=== PATIENT | female | born 1965 | race Caucasian/White ===

== ENCOUNTER 2017-12-21 19:18 | Inpatient (IN) | payer OTHER ==
[~2017-12-21] VITALS: Ht 165.1 cm; Wt 103.4 kg
[~2017-12-21 19:18] MED LIST changes: -Aspir-Trin325 MG PO; -Omeprazole20 M1 PO; -Seroquel400 MG PO
[2017-12-21] MEDS ORDERED: Seroquel400 MG PO (20:13)
[2017-12-21 21:53] LABS: Source, Urine Clean Catch
[2017-12-21 22:00] LABS: Bilirubin, Urine Neg (Neg); Blood, Urine Neg (Neg); Glucose Qualitative, Urine Neg (Neg); Ketones, Urine Neg (Neg); Leukocyte Esterase, Urine 1+ (Neg); Nitrite, Urine Pos (Neg); Protein, Urine Neg (Neg); Urobilinogen, Urine NORM (Normal)
[2017-12-21 22:02] LABS: Appearance, Urine Hazy (Clear); Color, Urine Yellow (P-Yellow)
[2017-12-21 22:07] LABS: Bacteria Many /hpf; Red Blood Cells, Urine 0-2 /hpf (0-2); Squamous Epithelial Cells Few /hpf (Few)
[2017-12-21] MEDS ORDERED: Omeprazole20 M1 PO (22:07)
[2017-12-22 04:22] LABS: BASOPHILS ABSOLUTE AUTO 0.02 K/mm3 (0.00-0.23); BASOPHILS PERCENT AUTO 0 % (0-2); EOSINOPHILS ABSOLUTE AUTO 0.29 K/mm3 (0.00-0.68); EOSINOPHILS PERCENT AUTO 3 % (0-6); Hematocrit 30.8 % (33.0-51.0); Hemoglobin 10.8 g/dL (11.5-16.0); IMMATURE GRAN ABSOLUTE AUTO 0.04 K/mm3 (0.00-0.10); IMMATURE GRAN PERCENT AUTO 1 % (0-1); LYMPHOCYTES PERCENT AUTO 41 % (21-46); MONOCYTES ABSOLUTE AUTO 0.58 K/mm3 (0.16-1.47); MONOCYTES PERCENT AUTO 7 % (4-13); Mean Corpuscular HGB Conc 35.1 g/dL (31.5-36.5); Mean Corpuscular Volume 100 fL (80-100); Mean Platelet Volume 8.6 fL (9.1-12.4); NEUTROPHILS ABSOLUTE AUTO 4.24 K/mm3 (1.96-9.15); NEUTROPHILS PERCENT AUTO 48 % (41-73); Platelet Count 232 K/mm3 (150-400); RDW Coefficient Variation 11.2 % (11.7-14.2); RDW Standard Deviation 40.2 fL (35.1-46.3); Red Blood Cell Count 3.09 M/mm3 (3.80-5.20); White Blood Cell Count 8.77 K/mm3 (4.00-11.30)
[2017-12-22 04:44] LABS: Anion Gap 8 mmol/L (6-16); Blood Urea Nitrogen 13 mg/dL (8-24); Bun/Creatinine Ratio 18.9 (12.0-20.0); CO2, Blood 25 mmol/L (21-32); Calcium, Blood 7.6 mg/dL (8.5-10.1); Chloride, Blood 97 mmol/L (98-108); Creatinine, Blood 0.69 mg/dL (0.40-1.00); Glomerular Filtration Rate >60 (60-); Glucose, Blood 92 mg/dL (70-99); Potassium, Blood 4.1 mmol/L (3.5-5.5); Sodium, Blood 130 mmol/L (136-145)
[2017-12-23 05:22] LABS: Anion Gap 10 mmol/L (6-16); Blood Urea Nitrogen 11 mg/dL (8-24); Bun/Creatinine Ratio 17.4 (12.0-20.0); CO2, Blood 25 mmol/L (21-32); Calcium, Blood 8.5 mg/dL (8.5-10.1); Chloride, Blood 100 mmol/L (98-108); Creatinine, Blood 0.63 mg/dL (0.40-1.00); Glomerular Filtration Rate >60 (60-); Glucose, Blood 106 mg/dL (70-99); Magnesium, Blood 1.6 mg/dL (1.6-2.4); Potassium, Blood 4.2 mmol/L (3.5-5.5); Sodium, Blood 135 mmol/L (136-145)
[2017-12-25] MEDS ORDERED: Aspir-Trin325 MG PO (09:35)
[2017-12-25] MEDS ORDERED: METO10 PO (09:36)
[2017-12-25] MEDS ORDERED: Ultram50 MG PO (09:37)
== END 2017-12-25 10:17 | disposition home or self-care (01) | DRG 103 ==
LOC: ER 19:18 → MEDS 22:58 → ENPENDDIS 12-25 09:00 → MEDS 12-25 10:17
PROVIDERS: Emergency Medicine; Internal Medicine; Nurse Practitioner Acute Care
DX: G43.911 Migraine, unspecified, intractable, with status migrainosus (principal); E87.1 Hypo-osmolality and hyponatremia; E83.42 Hypomagnesemia; R47.1 Dysarthria and anarthria; I10 Essential (primary) hypertension; Z66 Do not resuscitate; E11.42 Type 2 diabetes mellitus with diabetic polyneuropathy; D63.8 Anemia in other chronic diseases classified elsewhere; R40.2412 Glasgow coma scale score 13-15, at arrival to emergency department; R40.2142 Coma scale, eyes open, spontaneous, at arrival to emergency department; R40.2362 Coma scale, best motor response, obeys commands, at arrival to emergency department; R40.2252 Coma scale, best verbal response, oriented, at arrival to emergency department; F99 Mental disorder, not otherwise specified; E78.5 Hyperlipidemia, unspecified; K21.9 Gastro-esophageal reflux disease without esophagitis; F32.9 Major depressive disorder, single episode, unspecified; G40.909 Epilepsy, unspecified, not intractable, without status epilepticus; E03.9 Hypothyroidism, unspecified; G47.33 Obstructive sleep apnea (adult) (pediatric); Z79.4 Long term (current) use of insulin; Z79.899 Other long term (current) drug therapy; Z88.8 Allergy status to other drugs, medicaments and biological substances
CPT/HCPCS: 36415; 70450; 70551; 80048; 81001; 82947; 83735; 85025; 85651; 87081; 92610; 93005; 93010; 93880; 96361; 96374; 96375; 97161; 97166; 97535; 99285-25; G8978; G8979; G8987; G8988; G8996; G8997; J1170; J1200; J1650; J1885; J2060; J2405; J2765; J2930; J3010; J3475; J7030

== ENCOUNTER → 2017-12-21 | Outpatient (CLI) | payer OTHER ==
[~2017-12-21] MED LIST: ? ANTIBIOTIC; ACET500 PO; ALBU90OI; ALBU90OI INH; ALKA-SELTZER PLUS; ALLO100 PO; ALLO300 PO; AMIT25 PO; ANTOXYBENA OT; ARIP10; ASPI325 PO; ASPI81CH; ASPI81CH PO; ATOR10; ATOR10 PO; ATOR20 PO; ATOR40TA; AZIT250; AZIT250 PO; AZIT500 PO; Aspir-Trin325 MG PO; BENZ100A PO; BRINTELLIX20 MG PO; Benztropine Mesy1 MG PO; CARB100CH; CARB100ER PO; CARB200; CARB200ER PO; CARBAMAZEPINE 400 MG; CELE200; CHOLP; CIPR500 PO; CITA20; CLIN150 PO; CLIN300 PO; CLON1; CLON2; CRUTCH3 USE; CYCL10 PO; CYPR4 PO; DEPAKOT; DIAZ10; DIAZ10 PO; DIAZ5 PO; DILT180 PO; DILT180ER; DIPATR PO; DIPH25 PO; DIPH50; DIPH50 PO; DIVA500ER; DOXY100T53 PO; DULO30; DULO30 PO; EFFEXOR XR 150 MG; EPIN.3I; EPIN.3I IM; ERGO400 PO; ESCI10; ESOM20; ESTR2; EZET10; EZET10 PO; Epitol200 MG PO; FAMO20; FAMO20 PO; FENO48 PO; FURO80; GABA300; GABA300 PO; HALO5 PO; HYDACE10B; HYDACE10B PO; HYDACE5 PO; HYDCHL25; HYDGUAL120 PO; HYDMOR2; HYDMOR2 PO; HYDMOR4; HYDMOR4 PO; HYDPAM50 PO; HYDROCHLOROTHIAZIDE 50 MG; IBUHYD PO; IBUP600 PO; IBUP800 PO; IMIP25; IMIP50; INSLI100I; INSLI100I SC; INSULANI; INSULANI SC; INSULANPEN SC; LEVFLO500 PO; LEVOXYL; LEVSOD100 PO; LEVSOD125; LEVSOD125 PO; LEVSOD150; LEVSOD175; LEVSOD200; LIDO5TP TOP; LIPITOR 20 MG; LISHYD1012 PO; LISI10; LISI20 PO; LORA1; LORA1 PO; LORA2 PO; METF500C PO; METF850 PO; METH10; METO10 PO; METO50ER PO; MIRT15; MIRT15 PO; MIRT30 PO; MIRT30ST MM; MORP30; MORP30 PO; MORP30ER; NAPR500 PO; NAPR550 PO; NEOPOLHYDS OD; NITR.4SL; NITR.4SL SL; NITR.6SL SL; NITR100 PO; NITR100CA PO; Neurontin 300300 MG PO; Norco 5-325 Ta1 EACH PO; OLAN2.5; OLAN5; OLAN5 PO; OLME20 PO; OMEP20ER; OMEP20ER PO; ONDA4 PO; OXYACE5T; OXYACE5T PO; OXYC10TA19 PO; OXYC5; OXYC5 PO; Omeprazole20 M1 PO; PHENY100ER; POTA8; POTCHL20ER; POTCHL20ER PO; PRAZ5 PO; PRED20 PO; PROC10; PROC10 PO; PROC10ER; PROM25; PROM25 PO; RABE20; RANI150; RANI150 PO; RISP.5; ROPI1; ROPI1 PO; ROPI2; RXCLIN PO; RXHYDACE PO; RXONDA4ODT MM; RXOXYACE PO; RXTRAM50 PO; SENNP PO; SPIHYD; Seroquel400 MG PO; Synthroid175 MCG PO; TEMA15; THIOTHIXENE PO; TIZA4; TOPI25; TRAM50 PO; TRINTELLIX PO; Ultram50 MG PO; VENL25; VENL75; VENL75ER; VENLAFAXINE 150 MG; VERA100; Valium10 MG PO; Zantac150 MG PO; [UNRECOGNIZED DRUG - CODE]; [UNRECOGNIZED DRUG - OTHER]; [UNRECOGNIZED DRUG - OTHER]; [UNRECOGNIZED DRUG - OTHER]; [UNRECOGNIZED DRUG - REMARK]
[2017-12-21 17:35] LABS: BASOPHILS ABSOLUTE AUTO 0.04 K/mm3 (0.00-0.23); BASOPHILS PERCENT AUTO 1 % (0-2); EOSINOPHILS ABSOLUTE AUTO 0.31 K/mm3 (0.00-0.68); EOSINOPHILS PERCENT AUTO 4 % (0-6); Hematocrit 32.9 % (33.0-51.0); Hemoglobin 11.9 g/dL (11.5-16.0); IMMATURE GRAN ABSOLUTE AUTO 0.02 K/mm3 (0.00-0.10); IMMATURE GRAN PERCENT AUTO 0 % (0-1); LYMPHOCYTES ABSOLUTE AUTO 3.65 K/mm3 (0.84-5.20); LYMPHOCYTES PERCENT AUTO 44 % (21-46); MONOCYTES ABSOLUTE AUTO 0.55 K/mm3 (0.16-1.47); MONOCYTES PERCENT AUTO 7 % (4-13); Mean Corpuscular HGB Conc 36.2 g/dL (31.5-36.5); Mean Corpuscular Volume 99 fL (80-100); Mean Platelet Volume 8.6 fL (9.1-12.4); NEUTROPHILS ABSOLUTE AUTO 3.65 K/mm3 (1.96-9.15); NEUTROPHILS PERCENT AUTO 44 % (41-73); Platelet Count 274 K/mm3 (150-400); RDW Standard Deviation 40.8 fL (35.1-46.3); Red Blood Cell Count 3.31 M/mm3 (3.80-5.20); White Blood Cell Count 8.22 K/mm3 (4.00-11.30)
[2017-12-21 17:50] LABS: Alanine Aminotransfer (ALT/SGP 40 U/L (12-78); Albumin, Blood 3.7 g/dL (3.4-5.0); Alk Phos 58 U/L (40-126); Anion Gap 9 mmol/L (6-16); Aspartate Aminotrans (AST/SGOT 24 U/L (12-37); Bilirubin, Total 0.2 mg/dL (0.1-1.0); Blood Urea Nitrogen 14 mg/dL (8-24); Bun/Creatinine Ratio 15.6 (12.0-20.0); CO2, Blood 25 mmol/L (21-32); Chloride, Blood 92 mmol/L (98-108); Globulin, Blood 3.7 g/dL (2.2-4.0); Glomerular Filtration Rate >60 (60-); Glucose, Blood 101 mg/dL (70-99); Potassium, Blood 4.4 mmol/L (3.5-5.5); Sodium, Blood 126 mmol/L (136-145); Total Protein, Blood 7.4 g/dL (6.4-8.2); Troponin I <0.017 ng/mL (0.000-0.040)
== END | disposition home or self-care (01) ==
LOC: LAB SHORT 17:31 → LAB EV 17:31
PROVIDERS: Internal Medicine
DX: R55 Syncope and collapse (principal)
CPT/HCPCS: 80053; 84484; 85025

== ENCOUNTER → 2018-02-14 | Outpatient (CLI) | payer OTHER ==
[~2018-02-14] MED LIST changes: +Aspir-Trin325 MG PO; +Omeprazole20 M1 PO; +Seroquel400 MG PO
[2018-02-14 15:23] LABS: BASOPHILS ABSOLUTE AUTO 0.03 K/mm3 (0.00-0.23); BASOPHILS PERCENT AUTO 0 % (0-2); EOSINOPHILS ABSOLUTE AUTO 0.29 K/mm3 (0.00-0.68); EOSINOPHILS PERCENT AUTO 3 % (0-6); Hematocrit 35.9 % (33.0-51.0); Hemoglobin 12.4 g/dL (11.5-16.0); IMMATURE GRAN ABSOLUTE AUTO 0.03 K/mm3 (0.00-0.10); IMMATURE GRAN PERCENT AUTO 0 % (0-1); LYMPHOCYTES ABSOLUTE AUTO 3.57 K/mm3 (0.84-5.20); LYMPHOCYTES PERCENT AUTO 42 % (21-46); MONOCYTES ABSOLUTE AUTO 0.44 K/mm3 (0.16-1.47); MONOCYTES PERCENT AUTO 5 % (4-13); Mean Corpuscular HGB 36.3 pg (26.0-34.0); Mean Corpuscular HGB Conc 34.5 g/dL (31.5-36.5); Mean Corpuscular Volume 105 fL (80-100); Mean Platelet Volume 9.2 fL (9.1-12.4); NEUTROPHILS ABSOLUTE AUTO 4.06 K/mm3 (1.96-9.15); NEUTROPHILS PERCENT AUTO 48 % (41-73); Platelet Count 327 K/mm3 (150-400); RDW Coefficient Variation 12.7 % (11.7-14.2); RDW Standard Deviation 48.9 fL (35.1-46.3); Red Blood Cell Count 3.42 M/mm3 (3.80-5.20); White Blood Cell Count 8.42 K/mm3 (4.00-11.30)
[2018-02-14 15:39] LABS: Alanine Aminotransfer (ALT/SGP 126 U/L (12-78); Albumin, Blood 4.3 g/dL (3.4-5.0); Albumin/Globulin Ratio 1.1 (0.8-1.8); Alk Phos 95 U/L (40-126); Anion Gap 14 mmol/L (6-16); Aspartate Aminotrans (AST/SGOT 102 U/L (12-37); Bilirubin, Total 0.2 mg/dL (0.1-1.0); Blood Urea Nitrogen 25 mg/dL (8-24); Bun/Creatinine Ratio 14.7 (12.0-20.0); CO2, Blood 24 mmol/L (21-32); Calcium, Blood 8.6 mg/dL (8.5-10.1); Chloride, Blood 97 mmol/L (98-108); Globulin, Blood 3.9 g/dL (2.2-4.0); Glomerular Filtration Rate 31 (60-); Glucose, Blood 155 mg/dL (70-99); Sodium, Blood 135 mmol/L (136-145); Total Protein, Blood 8.2 g/dL (6.4-8.2)
[2018-02-14 15:42] LABS: Troponin I <0.017 ng/mL (0.000-0.040)
== END | disposition home or self-care (01) ==
LOC: LAB SHORT 15:18 → LAB EV 15:18
PROVIDERS: Physician Assistant
DX: R07.9 Chest pain, unspecified (principal)
CPT/HCPCS: 80053; 84484; 85025

== ENCOUNTER 2018-06-16 05:03 | Emergency (ER) | payer OTHER ==
[~2018-06-16] VITALS: Ht 165.1 cm; Wt 90.7 kg
[2018-06-16] MEDS ORDERED: CEPH500 PO (06:07)
== END 2018-06-16 06:30 | disposition home or self-care (01) ==
LOC: ER 05:03
DX: L03.031 Cellulitis of right toe (principal); Z88.0 Allergy status to penicillin; Z88.8 Allergy status to other drugs, medicaments and biological substances; Z88.1 Allergy status to other antibiotic agents; Z88.2 Allergy status to sulfonamides; Z79.899 Other long term (current) drug therapy; Z79.4 Long term (current) use of insulin; Z79.82 Long term (current) use of aspirin; E11.9 Type 2 diabetes mellitus without complications; I10 Essential (primary) hypertension
CPT/HCPCS: 73660; 99282

== ENCOUNTER 2018-10-22 12:16 | Emergency (ER) | payer OTHER ==
[~2018-10-22] VITALS: Ht 154.9 cm; Wt 102.1 kg
[~2018-10-22 12:16] MED LIST changes: -AMIT25 PO; -ATOR20 PO; +Amitriptyline H50 MG PO; +CEPH500 PO; -LISHYD1012 PO; -METF500C PO; +METO50 PO; -METO50ER PO; +Metformin HCl1000 MG PO; +QUETIAPINE FUM300 M1 PO; -Seroquel400 MG PO; +ZESTORETIC 20-1 EACH PO
[2018-10-22] MEDS ORDERED: ALPR.5 PO (12:50)
[2018-10-22 14:15] LABS: BASOPHILS ABSOLUTE AUTO 0.03 K/mm3 (0.00-0.23); BASOPHILS PERCENT AUTO 1 % (0-2); EOSINOPHILS ABSOLUTE AUTO 0.12 K/mm3 (0.00-0.68); EOSINOPHILS PERCENT AUTO 2 % (0-6); Hematocrit 36.8 % (33.0-51.0); Hemoglobin 12.1 g/dL (11.5-16.0); IMMATURE GRAN ABSOLUTE AUTO 0.01 K/mm3 (0.00-0.10); IMMATURE GRAN PERCENT AUTO 0 % (0-1); LYMPHOCYTES ABSOLUTE AUTO 3.19 K/mm3 (0.84-5.20); LYMPHOCYTES PERCENT AUTO 50 % (21-46); MONOCYTES ABSOLUTE AUTO 0.45 K/mm3 (0.16-1.47); MONOCYTES PERCENT AUTO 7 % (4-13); Mean Corpuscular HGB 36.2 pg (26.0-34.0); Mean Corpuscular HGB Conc 32.9 g/dL (31.5-36.5); Mean Corpuscular Volume 110 fL (80-100); Mean Platelet Volume 9.7 fL (9.1-12.4); NEUTROPHILS ABSOLUTE AUTO 2.54 K/mm3 (1.96-9.15); NEUTROPHILS PERCENT AUTO 40 % (41-73); Platelet Count 281 K/mm3 (150-400); RDW Coefficient Variation 12.8 % (11.7-14.2); RDW Standard Deviation 51.2 fL (35.1-46.3); Red Blood Cell Count 3.34 M/mm3 (3.80-5.20); White Blood Cell Count 6.34 K/mm3 (4.00-11.30)
[2018-10-22 14:26] LABS: Albumin, Blood 3.8 g/dL (3.4-5.0); Bilirubin, Total 0.3 mg/dL (0.1-1.0); Bun/Creatinine Ratio 49.5 (12.0-20.0); Calcium, Blood 8.4 mg/dL (8.5-10.1); Creatinine, Blood 1.09 mg/dL (0.40-1.00); Globulin, Blood 3.9 g/dL (2.2-4.0); Potassium, Blood 4.7 mmol/L (3.5-5.5); Total Protein, Blood 7.7 g/dL (6.4-8.2)
[2018-10-22] MEDS ORDERED: Prazosin HCl5 MG PO (14:44)
[2018-10-22] MEDS ORDERED: Seroquel50 MG PO (14:50)
[2018-10-22] MEDS ORDERED: DIAZ10 PO (14:53)
[2018-10-22] MEDS ORDERED: Cyproheptadine H4 MG PO (14:56)
[2018-10-22] MEDS ORDERED: OMEPRAZOLE20 MG PO (14:57)
== END 2018-10-22 15:18 | disposition home or self-care (01) ==
LOC: ER 12:16
PROVIDERS: Emergency Medicine
DX: R51 Headache (principal); G89.29 Other chronic pain; F43.9 Reaction to severe stress, unspecified; F43.10 Post-traumatic stress disorder, unspecified; Z88.0 Allergy status to penicillin; Z88.8 Allergy status to other drugs, medicaments and biological substances; Z88.1 Allergy status to other antibiotic agents; Z88.2 Allergy status to sulfonamides; Z79.899 Other long term (current) drug therapy; Z79.4 Long term (current) use of insulin; Z79.82 Long term (current) use of aspirin; E11.9 Type 2 diabetes mellitus without complications; I10 Essential (primary) hypertension
CPT/HCPCS: 36415; 70450; 80053; 85025; 93005; 93010; 99285-25

== ENCOUNTER → 2019-03-14 | Outpatient (CLI) | payer OTHER ==
[~2019-03-14] MED LIST changes: +ALPR.5 PO; +Cyproheptadine H4 MG PO; +OMEPRAZOLE20 MG PO; +Prazosin HCl5 MG PO; +Seroquel50 MG PO
== END | disposition home or self-care (01) ==
LOC: LAB SHORT 16:24 → LAB 16:24
DX: J02.9 Acute pharyngitis, unspecified (principal)
CPT/HCPCS: 87081

== ENCOUNTER 2019-03-17 06:59 | Day surgery (SDC) | payer OTHER ==
[~2019-03-17] VITALS: Ht 165.1 cm; Wt 102.3 kg
--- NOTE | 2019-03-17 07:35 | NUR ---
History, Chart, Medications and Allergies reviewed before start of procedure. Patient States Post-Procedure ride home has been arranged.
--- NOTE | 2019-03-17 08:28 | NUR ---
RECIEVED PATIENT AND REPORT FROM ELIEZER ERAZO RN. VSS PATIENT PLACED ON 2 LITERS 02 DUE TO SLEEPY AND WAKING UP
--- NOTE | 2019-03-17 08:31 | NUR ---
03/17/19 0831 Minnie Robin PATIENT DETERMINED TO BE ASA APPROPRIATE FOR MODERATE SEDATION PRIOR TO START OF PROCEDURE BY DR. JOHNSTON. 3-LEAD EKG REVIEWED WITH PHYSICIAN PRIOR TO START OF PROCEDURE. PATIENT CONFIRMS NPO STATUS AND AGREES WITH SCHEDULED PROCEDURE. History, Chart, Medications and Allergies reviewed before start of procedure. MONITOR INTACT WITH CONTINUOUS PULSE OXIMETRY AND INTERMITTENT BP. O2 VIA N/C INTACT THROUGHOUT SEDATION/PROCEDURE & POM MASK. Bite Block Placed IMMEDIATELY PRESEDATION.
--- NOTE | 2019-03-17 08:46 | NUR ---
PATIENT GETTING DRESSED AT THIS TIME. IV DISCONTINUED AND DISCHARGE INSTRUCITONS GONE OVER WITH. ANSWERED ALL QUESTIONS AND PATIENT DISCHARGED WITH BELONGINGS
== END 2019-03-17 23:24 | disposition home or self-care (01) ==
LOC: ORSCMMR 06:59 → ORD 08:00 → ORSCMMR 23:24
PROVIDERS: Internal Medicine Gastroenterology
PROC: 0D758ZZ Dilation of Esophagus, Via Natural or Artificial Opening Endoscopic (ICD-10-PCS; principal; 2019-03-17 08:00)
PROC: 0DB58ZX Excision of Esophagus, Via Natural or Artificial Opening Endoscopic, Diagnostic (ICD-10-PCS; principal; 2019-03-17 08:00)
PROC: 0DB48ZX Excision of Esophagogastric Junction, Via Natural or Artificial Opening Endoscopic, Diagnostic (ICD-10-PCS; principal; 2019-03-17 08:00)
PROC: 0DB68ZX Excision of Stomach, Via Natural or Artificial Opening Endoscopic, Diagnostic (ICD-10-PCS; principal; 2019-03-17 08:00)
DX: R13.14 Dysphagia, pharyngoesophageal phase (principal); K44.9 Diaphragmatic hernia without obstruction or gangrene; K21.9 Gastro-esophageal reflux disease without esophagitis; E11.9 Type 2 diabetes mellitus without complications; E03.9 Hypothyroidism, unspecified; G47.33 Obstructive sleep apnea (adult) (pediatric); E78.00 Pure hypercholesterolemia, unspecified; Z79.899 Other long term (current) drug therapy
CPT/HCPCS: 82947; 88305; 88342; C1726; J2250; J3010; J7120

== ENCOUNTER → 2019-05-07 | Outpatient (CLI) | payer OTHER | END | disposition home or self-care (01) | LOC: LAB SHORT 12:00 → LAB 12:00 | DX: N39.0 Urinary tract infection, site not specified (principal) | CPT/HCPCS: 87086 ==

== ENCOUNTER 2019-05-17 18:43 | Emergency (ER) | payer OTHER ==
[~2019-05-17] VITALS: Ht 165.1 cm; Wt 102.1 kg
[2019-05-17 20:04] LABS: BASOPHILS ABSOLUTE AUTO 0.03 K/mm3 (0.00-0.23); BASOPHILS PERCENT AUTO 1 % (0-2); EOSINOPHILS ABSOLUTE AUTO 0.31 K/mm3 (0.00-0.68); EOSINOPHILS PERCENT AUTO 5 % (0-6); Hematocrit 36.1 % (33.0-51.0); Hemoglobin 11.9 g/dL (11.5-16.0); IMMATURE GRAN ABSOLUTE AUTO 0.02 K/mm3 (0.00-0.10); IMMATURE GRAN PERCENT AUTO 0 % (0-1); LYMPHOCYTES PERCENT AUTO 38 % (21-46); MONOCYTES ABSOLUTE AUTO 0.62 K/mm3 (0.16-1.47); MONOCYTES PERCENT AUTO 9 % (4-13); Mean Corpuscular HGB 36.1 pg (26.0-34.0); Mean Corpuscular Volume 109 fL (80-100); Mean Platelet Volume 10.3 fL (9.1-12.4); NEUTROPHILS PERCENT AUTO 47 % (41-73); Platelet Count 232 K/mm3 (150-400); RDW Coefficient Variation 12.1 % (11.7-14.2); RDW Standard Deviation 48.9 fL (35.1-46.3); White Blood Cell Count 6.58 K/mm3 (4.00-11.30)
[2019-05-17 20:16] LABS: Alanine Aminotransfer (ALT/SGP 37 U/L (12-78); Albumin, Blood 3.7 g/dL (3.4-5.0); Alk Phos 95 U/L (50-136); Anion Gap 14 mmol/L (6-16); Aspartate Aminotrans (AST/SGOT 26 U/L (12-37); Bilirubin, Total 0.2 mg/dL (0.1-1.0); Blood Urea Nitrogen 19 mg/dL (8-24); Bun/Creatinine Ratio 22.5 (12.0-20.0); CO2, Blood 18 mmol/L (21-32); Calcium, Blood 8.3 mg/dL (8.5-10.1); Chloride, Blood 107 mmol/L (98-108); Creatinine, Blood 0.85 mg/dL (0.40-1.00); Globulin, Blood 3.8 g/dL (2.2-4.0); Glomerular Filtration Rate >60 (60-); Glucose, Blood 300 mg/dL (70-99); Potassium, Blood 3.8 mmol/L (3.5-5.5); Sodium, Blood 139 mmol/L (136-145); Total Protein, Blood 7.5 g/dL (6.4-8.2); Troponin I <0.015 ng/mL (0.000-0.040)
== END 2019-05-17 22:40 | disposition home or self-care (01) ==
LOC: ER 18:43
PROVIDERS: Emergency Medicine
DX: R56.9 Unspecified convulsions (principal); E11.65 Type 2 diabetes mellitus with hyperglycemia; R07.9 Chest pain, unspecified; I10 Essential (primary) hypertension; E11.9 Type 2 diabetes mellitus without complications; Z88.0 Allergy status to penicillin; Z91.09 Other allergy status, other than to drugs and biological substances; Z88.1 Allergy status to other antibiotic agents; Z88.8 Allergy status to other drugs, medicaments and biological substances; Z79.899 Other long term (current) drug therapy; Z88.2 Allergy status to sulfonamides; Z79.82 Long term (current) use of aspirin
CPT/HCPCS: 71046; 80053; 82947; 84484; 85025; 93005; 93010; 96361; 96374; 96375; 99284-25; J1200; J2765; J7030

== ENCOUNTER → 2019-06-12 | Outpatient (CLI) | payer OTHER ==
[2019-06-12 20:00] LABS: U Amphetamine Screen Not Detected; U Barbituate Screen Not Detected; U Benzodiazapine Screen DETECTED; U Buprenorphine Screen Not Detected; U Cannabinoids Screen Not Detected; U Cocaine Screen Not Detected; U Methadone Screen Not Detected; U Methamphetamine Screen Not Detected; U Opiates Screen Not Detected; U Oxycodone Screen Not Detected; U Phencyclidine Screen Not Detected; U Propoxyphene Screen Not Detected
== END ==
LOC: LAB 17:50 → LAB SHORT 17:50
PROVIDERS: Registered Nurse
DX: Z51.81 Encounter for therapeutic drug level monitoring (principal); Z79.899 Other long term (current) drug therapy

== ENCOUNTER 2019-08-08 13:16 | Emergency (ER) | payer OTHER ==
[~2019-08-08] VITALS: Ht 165.1 cm; Wt 97.5 kg
[2019-08-08] MEDS ORDERED: Prednisone20 MG PO (15:24)
[2019-08-08] MEDS ORDERED: EPIPEN 2-P0.3 MG/0.3 IM (15:24)
[2019-08-08] MEDS ORDERED: Pepcid20 MG PO (15:24)
[2019-08-08] MEDS ORDERED: Benadryl 50 mg50 MG PO (15:24)
== END 2019-08-08 15:42 | disposition home or self-care (01) ==
LOC: ER 13:16
DX: T63.441A Toxic effect of venom of bees, accidental (unintentional), initial encounter (principal); E11.9 Type 2 diabetes mellitus without complications; I10 Essential (primary) hypertension; Z88.0 Allergy status to penicillin; Z88.2 Allergy status to sulfonamides; Z79.899 Other long term (current) drug therapy
CPT/HCPCS: 96374; 96375; 99283-25; J2930

== ENCOUNTER → 2019-11-11 | Outpatient (CLI) | payer OTHER ==
[~2019-11-11] MED LIST changes: +Benadryl 50 mg50 MG PO; +EPIPEN 2-P0.3 MG/0.3 IM; +Pepcid20 MG PO; +Prednisone20 MG PO
== END | disposition home or self-care (01) ==
LOC: LAB SHORT 18:45 → LAB 18:45
DX: L03.032 Cellulitis of left toe (principal)
CPT/HCPCS: 87070; 87205

== ENCOUNTER 2019-12-12 20:39 | Emergency (ER) | payer OTHER ==
[~2019-12-12] VITALS: Ht 167.6 cm; Wt 99.8 kg
[~2019-12-12 20:39] MED LIST changes: +AMIT25 PO; +ATOR20 PO; +CLON.1 PO; +INSULIN LI100 UNIT/5 SC; +Imitrex50 MG PO; +POTA10T PO
== END 2019-12-12 22:41 | disposition home or self-care (01) ==
LOC: ER 20:39
DX: S80.212A Abrasion, left knee, initial encounter (principal); S80.211A Abrasion, right knee, initial encounter; S60.512A Abrasion of left hand, initial encounter; S60.511A Abrasion of right hand, initial encounter; S00.31XA Abrasion of nose, initial encounter; T14.8XXA Other injury of unspecified body region, initial encounter; M54.5 Low back pain; E10.9 Type 1 diabetes mellitus without complications; I10 Essential (primary) hypertension; Z79.899 Other long term (current) drug therapy; W19.XXXA Unspecified fall, initial encounter
CPT/HCPCS: 73000; 90471; 96372-59; 99283-25; J1885

== ENCOUNTER 2020-02-14 19:19 | Emergency (ER) | payer OTHER ==
[~2020-02-14] VITALS: Ht 165.1 cm; Wt 97.5 kg
[2020-02-14 19:46] LABS: Source, Urine Clean Catch
[2020-02-14 19:48] LABS: BASOPHILS ABSOLUTE AUTO 0.02 K/mm3 (0.00-0.23); BASOPHILS PERCENT AUTO 0 % (0-2); EOSINOPHILS ABSOLUTE AUTO 0.26 K/mm3 (0.00-0.68); EOSINOPHILS PERCENT AUTO 4 % (0-6); Hematocrit 33.9 % (33.0-51.0); Hemoglobin 11.2 g/dL (11.5-16.0); IMMATURE GRAN ABSOLUTE AUTO 0.02 K/mm3 (0.00-0.10); IMMATURE GRAN PERCENT AUTO 0 % (0-1); LYMPHOCYTES ABSOLUTE AUTO 2.97 K/mm3 (0.84-5.20); LYMPHOCYTES PERCENT AUTO 44 % (21-46); MONOCYTES ABSOLUTE AUTO 0.46 K/mm3 (0.16-1.47); MONOCYTES PERCENT AUTO 7 % (4-13); Mean Corpuscular HGB 35.7 pg (26.0-34.0); Mean Corpuscular Volume 108 fL (80-100); Mean Platelet Volume 9.8 fL (9.1-12.4); NEUTROPHILS ABSOLUTE AUTO 3.01 K/mm3 (1.96-9.15); NEUTROPHILS PERCENT AUTO 45 % (41-73); Platelet Count 235 K/mm3 (150-400); RDW Coefficient Variation 11.8 % (11.7-14.2); RDW Standard Deviation 46.7 fL (35.1-46.3); Red Blood Cell Count 3.14 M/mm3 (3.80-5.20); White Blood Cell Count 6.74 K/mm3 (4.00-11.30)
[2020-02-14 19:49] LABS: Appearance, Urine Clear (Clear); Bilirubin, Urine Neg (Neg); Blood, Urine Neg (Neg); Color, Urine Yellow (P-Yellow); Glucose Qualitative, Urine Neg (Neg); Ketones, Urine Neg (Neg); Leukocyte Esterase, Urine 1+ (Neg); Nitrite, Urine Neg (Neg); Protein, Urine Neg (Neg); Urobilinogen, Urine NORM (Normal)
[2020-02-14 19:56] LABS: Bacteria Few /hpf; Red Blood Cells, Urine 0-2 /hpf (0-2); Squamous Epithelial Cells Not Seen /hpf (Few); White Blood Cells, Urine 0-2 /hpf (0-5)
[2020-02-14 19:59] LABS: U Amphetamine Screen Not Detected; U Barbituate Screen Not Detected; U Benzodiazapine Screen DETECTED; U Buprenorphine Screen Not Detected; U Cannabinoids Screen Not Detected; U Cocaine Screen Not Detected; U Methadone Screen Not Detected; U Methamphetamine Screen Not Detected; U Opiates Screen Not Detected; U Oxycodone Screen Not Detected; U Phencyclidine Screen Not Detected; U Propoxyphene Screen Not Detected
[2020-02-14 20:06] LABS: Alanine Aminotransfer (ALT/SGP 139 U/L (12-78); Albumin, Blood 3.1 g/dL (3.4-5.0); Albumin/Globulin Ratio 0.9 (0.8-1.8); Alk Phos 103 U/L (50-136); Anion Gap 9 mmol/L (6-16); Aspartate Aminotrans (AST/SGOT 69 U/L (12-37); Bilirubin, Total 0.2 mg/dL (0.1-1.0); Blood Urea Nitrogen 11 mg/dL (8-24); CO2, Blood 22 mmol/L (21-32); Calcium, Blood 8.1 mg/dL (8.5-10.1); Chloride, Blood 108 mmol/L (98-108); Creatinine, Blood 0.79 mg/dL (0.40-1.00); Ethanol (Alcohol), Blood, Med 9 mg/dL; Globulin, Blood 3.4 g/dL (2.2-4.0); Glomerular Filtration Rate >60 (60-); Glucose, Blood 178 mg/dL (70-99); Potassium, Blood 4.5 mmol/L (3.5-5.5); Sodium, Blood 139 mmol/L (136-145); Total Protein, Blood 6.5 g/dL (6.4-8.2)
[2020-02-14 20:07] LABS: Carbamazepine 0.5 ug/mL (4.0-12.0)
== END 2020-02-14 20:57 | disposition home or self-care (01) ==
LOC: ER 19:19
PROVIDERS: Emergency Medicine
DX: R41.82 Altered mental status, unspecified (principal); E11.9 Type 2 diabetes mellitus without complications; I10 Essential (primary) hypertension; F32.9 Major depressive disorder, single episode, unspecified; E78.5 Hyperlipidemia, unspecified; E03.9 Hypothyroidism, unspecified; K21.9 Gastro-esophageal reflux disease without esophagitis; F43.10 Post-traumatic stress disorder, unspecified; E66.01 Morbid (severe) obesity due to excess calories; Z79.84 Long term (current) use of oral hypoglycemic drugs; Z79.82 Long term (current) use of aspirin; Z79.899 Other long term (current) drug therapy
CPT/HCPCS: 80053; 80156; 81001; 85025; 93005; 93010; G0480; J7030

== ENCOUNTER → 2020-11-30 | Outpatient (CLI) | payer OTHER ==
[2020-11-30 09:52] LABS: Source, Urine Clean Catch
[2020-11-30 13:19] LABS: Appearance, Urine Clear (Clear); Bilirubin, Urine Neg (Neg); Blood, Urine Neg (Neg); Color, Urine Yellow (P-Yellow); Glucose Qualitative, Urine Neg (Neg); Ketones, Urine Neg (Neg); Leukocyte Esterase, Urine Neg (Neg); Nitrite, Urine Neg (Neg); Protein, Urine 1+ (Neg); Specific Gravity, Urine 1.015 (1.003-1.022); Urobilinogen, Urine NORM (Normal)
== END | disposition home or self-care (01) ==
LOC: LAB 09:51 → LAB SHORT 09:51 → EDSTATUS 07-02 11:05 → LAB FUT 07-02 11:05
PROVIDERS: Physician Assistant
DX: N39.0 Urinary tract infection, site not specified (principal); E83.42 Hypomagnesemia
CPT/HCPCS: 87086

== ENCOUNTER 2021-02-23 17:12 | Inpatient (IN) | payer OTHER ==
[~2021-02-23] VITALS: Ht 165.1 cm; Wt 82.7 kg
[~2021-02-23 17:12] MED LIST changes: -INSULIN LI100 UNIT/5 SC; +INSULIN LI100 UNIT/6 SC
[2021-02-23 17:40] LABS: PCO2 Arterial 26.9 mmHg (35-45); PO2 Arterial 69.7 mmHg (80-100); pH Blood Arterial 7.47 (7.35-7.45)
[2021-02-23 18:05] LABS: BASOPHILS ABSOLUTE AUTO 0.01 K/mm3 (0.00-0.23); BASOPHILS PERCENT AUTO 0 % (0-2); EOSINOPHILS ABSOLUTE AUTO 0.08 K/mm3 (0.00-0.68); EOSINOPHILS PERCENT AUTO 1 % (0-6); Hematocrit 32.8 % (33.0-51.0); Hemoglobin 11.6 g/dL (11.5-16.0); IMMATURE GRAN ABSOLUTE AUTO 0.07 K/mm3 (0.00-0.10); IMMATURE GRAN PERCENT AUTO 1 % (0-1); LYMPHOCYTES ABSOLUTE AUTO 1.27 K/mm3 (0.84-5.20); LYMPHOCYTES PERCENT AUTO 14 % (21-46); MONOCYTES ABSOLUTE AUTO 0.22 K/mm3 (0.16-1.47); MONOCYTES PERCENT AUTO 3 % (4-13); Mean Corpuscular HGB 33.3 pg (26.0-34.0); Mean Corpuscular HGB Conc 35.4 g/dL (31.5-36.5); Mean Corpuscular Volume 94 fL (80-100); Mean Platelet Volume 9.6 fL (9.1-12.4); NEUTROPHILS ABSOLUTE AUTO 7.16 K/mm3 (1.96-9.15); NEUTROPHILS PERCENT AUTO 81 % (41-73); Platelet Count 261 K/mm3 (150-400); RDW Coefficient Variation 11.5 % (11.7-14.2); RDW Standard Deviation 39.4 fL (35.1-46.3); Red Blood Cell Count 3.48 M/mm3 (3.80-5.20); White Blood Cell Count 8.81 K/mm3 (4.00-11.30)
[2021-02-23 18:23] LABS: Alanine Aminotransfer (ALT/SGP 225 U/L (12-78); Albumin, Blood 2.4 g/dL (3.4-5.0); Albumin/Globulin Ratio 0.4 (0.8-1.8); Alk Phos 237 U/L (50-136); Anion Gap 11 mmol/L (6-16); Aspartate Aminotrans (AST/SGOT 146 U/L (12-37); Blood Urea Nitrogen 47 mg/dL (8-24); Bun/Creatinine Ratio 32.9 (12.0-20.0); CO2, Blood 20 mmol/L (21-32); Calcium, Blood 8.9 mg/dL (8.5-10.1); Chloride, Blood 98 mmol/L (98-108); Creatinine, Blood 1.43 mg/dL (0.40-1.00); Globulin, Blood 5.7 g/dL (2.2-4.0); Glomerular Filtration Rate 38 (60-); Glucose, Blood 204 mg/dL (70-99); Magnesium, Blood 1.4 mg/dL (1.6-2.4); Potassium, Blood 3.4 mmol/L (3.5-5.5); Sodium, Blood 129 mmol/L (136-145); Total Protein, Blood 8.1 g/dL (6.4-8.2); Troponin I <0.015 ng/mL (0.000-0.040)
[2021-02-23] MEDS ORDERED: AMIT50 PO (19:29)
[2021-02-23] MEDS ORDERED: OXYC10TA19 PO (19:29)
[2021-02-23] MEDS ORDERED: EZETIMIBE10 M6 PO (19:30)
[2021-02-23] MEDS ORDERED: ALLOPURINOL100 M1 PO (19:30)
[2021-02-23] MEDS ORDERED: MYRBETRIQ25 MG PO (19:30)
[2021-02-23] MEDS ORDERED: SYNTHROID175 MC1 PO (19:31)
[2021-02-23] MEDS ORDERED: DILTIAZEM 24HR180 M4 PO (19:31)
[2021-02-23] MEDS ORDERED: CLON.1 PO (19:31)
[2021-02-23] MEDS ORDERED: ATORVASTATIN CA20 MG PO (19:31)
[2021-02-23] MEDS ORDERED: PANTOPRAZOLE SO40 M2 PO (19:32)
[2021-02-23] MEDS ORDERED: PRAZ5 PO (19:32)
[2021-02-23] MEDS ORDERED: METOPROLOL TART50 M5 PO (19:32)
[2021-02-23] MEDS ORDERED: METFORMIN HCL1000 M9 PO (19:32)
[2021-02-23] MEDS ORDERED: LISINOPRIL-HCT1 EACH PO (19:32)
[2021-02-23] MEDS ORDERED: QUETIAPINE FUM PO (19:33)
[2021-02-23] MEDS ORDERED: FUROSEMIDE20 MG PO (19:35)
--- NOTE | 2021-02-23 21:40 | NUR ---
Assumed care of patient around 2139. Patient has moderate amounts of anxiety r/t prognosis. Patient on 15L HF NC satting above 90%, reporting no SOB. Lower lobes dim and upper lobes fine crackles. 2 PIV in R and L AC patent with the R one having tenderness. Patient oriented to the room and call light, and lights dimmed for rest.
[2021-02-23 23:59] LABS: CHOL/HDL RATIO 3.6; Cholesterol 128 mg/dL (50-200); HDL Cholesterol 36 mg/dL (>39); Low Density Lipoprotein Chol 73 mg/dL (0-110); Thyroid Stimulating Hormone 0.107 uIU/mL (0.360-4.800); Triglycerides 97 mg/dL (30-160); Very Low Density Lipoprot Chol 19 mg/dL (6-32)
[2021-02-24 03:55] LABS: BASOPHILS ABSOLUTE AUTO 0.01 K/mm3 (0.00-0.23); BASOPHILS PERCENT AUTO 0 % (0-2); EOSINOPHILS PERCENT AUTO 0 % (0-6); Hematocrit 30.4 % (33.0-51.0); Hemoglobin 10.6 g/dL (11.5-16.0); Mean Corpuscular HGB 33.2 pg (26.0-34.0); Mean Corpuscular HGB Conc 34.9 g/dL (31.5-36.5); Mean Corpuscular Volume 95 fL (80-100); Mean Platelet Volume 9.8 fL (9.1-12.4); Platelet Count 223 K/mm3 (150-400); RDW Coefficient Variation 11.3 % (11.7-14.2); RDW Standard Deviation 39.6 fL (35.1-46.3); Red Blood Cell Count 3.19 M/mm3 (3.80-5.20)
[2021-02-24 03:57] LABS: IMMATURE GRAN ABSOLUTE AUTO 0.04 K/mm3 (0.00-0.10); IMMATURE GRAN PERCENT AUTO 1 % (0-1); LYMPHOCYTES ABSOLUTE AUTO 0.26 K/mm3 (0.84-5.20); LYMPHOCYTES PERCENT AUTO 4 % (21-46); MONOCYTES ABSOLUTE AUTO 0.07 K/mm3 (0.16-1.47); MONOCYTES PERCENT AUTO 1 % (4-13); NEUTROPHILS ABSOLUTE AUTO 5.82 K/mm3 (1.96-9.15); NEUTROPHILS PERCENT AUTO 94 % (41-73)
[2021-02-24 04:16] LABS: Albumin, Blood 2.3 g/dL (3.4-5.0); Albumin/Globulin Ratio 0.4 (0.8-1.8); Bilirubin, Total 0.5 mg/dL (0.1-1.0); Bun/Creatinine Ratio 37.1 (12.0-20.0); Calcium, Blood 8.9 mg/dL (8.5-10.1); Creatinine, Blood 1.16 mg/dL (0.40-1.00); Globulin, Blood 5.3 g/dL (2.2-4.0); Potassium, Blood 4.2 mmol/L (3.5-5.5); Total Protein, Blood 7.6 g/dL (6.4-8.2)
--- NOTE | 2021-02-24 18:30 | NUR ---
SHIFT SUMMARY: PT CONTINUES A&O, USING CALL LIGHT AND ANSWERING QUESTIONS APPROPRIATELY. PT CONTINUES ON HUMIDIFIED HIFLO NC AT 10 L/MIN, TITRATED UP TO 15 L/MIN AT TIMES DUE TO DESATURATION WITH MOVEMENT. PT CONTINUES TO DESATURATE WITH MINIMAL MOVEMENT, RESP THERAPY NOTIFIED OF REQUEST FOR AIRVO, STATES THEY WILL BRING ONE. SR CONTINUES ON MONITOR. INDWELLING PADILLA PLACED TO MINIMIZE ACTIVITY, PT TOLERATES WELL. PT CHANGED TO HCS DUE TO CONTINUED ELEVATED BLOOD SUGAR LEVELS. PT OBSERVED COMMUNICATING WITH FAMILY T/OUT THE DAY VIA ROOM PHONE AND PERSONAL PHONE. FAMILY ALSO UPDATED VIA PHONE CALL TODAY. WILL CONTINUE TO MONITOR AND TREAT ACCORDINGLY UNTIL CHANGE OF SHIFT.
[2021-02-24 18:41] LABS: Source, Urine Catheter
[2021-02-24 19:07] LABS: Appearance, Urine Clear (Clear); Bilirubin, Urine Neg (Neg); Blood, Urine Neg (Neg); Color, Urine Yellow (P-Yellow); Glucose Qualitative, Urine 3+ (Neg); Ketones, Urine 1+ (Neg); Leukocyte Esterase, Urine Neg (Neg); Nitrite, Urine Neg (Neg); Protein, Urine Neg (Neg); Urobilinogen, Urine NORM (Normal)
--- NOTE | 2021-02-24 19:14 | NUR ---
UPDATE PT REPORTED 01/11 CP. STATED SHE HAS HAD IT "FOR SOME TIME." PT BELIEVES IT IS D/T COUGH. PHYSICIAN NOTIFIED. EKG ORDERED. IF EKG WNL ORDERS TO DO CT PE STUDY.
[2021-02-25 04:24] LABS: Anion Gap 9 mmol/L (6-16); Blood Urea Nitrogen 42 mg/dL (8-24); Bun/Creatinine Ratio 44.9 (12.0-20.0); CO2, Blood 23 mmol/L (21-32); Calcium, Blood 9.6 mg/dL (8.5-10.1); Chloride, Blood 100 mmol/L (98-108); Creatinine, Blood 0.94 mg/dL (0.40-1.00); Glomerular Filtration Rate >60 (60-); Glucose, Blood 343 mg/dL (70-99); Potassium, Blood 4.5 mmol/L (3.5-5.5); Sodium, Blood 132 mmol/L (136-145)
--- NOTE | 2021-02-25 06:06 | NUR ---
SHIFT SUMMARY ASSUMED CARE OF PT AT 1900. PT IS A/OX4, BUT VOICE IS VERY RASPY. DOCTOR WAS NOTIFIED AND ORDERED CEPICAL LOZENGES. HEART SOUNDS REGULAR, PT WILL FE DOWN TO 50'S WHILE SLEEPING. LUNG SOUNDS HAVE CRACKELS AT THE APEX AND ARE DIMINISHED AT THE BASES. PT WAS ON 15L HIGHFLOW NC T/O THE NIGHT. PT WILL DESAT TO 85% WHEN COUGHING. PT HAS A PADILLA DRAINING WITH GRAVITY. PT WAS C/O BACK PAIN, MEDICATED PER EMAR. PT SLEPT T/O THE NIGHT. CALL LIGHT IN REACH, BED IN LOWEST POSTION.
--- NOTE | 2021-02-25 17:36 | NUR ---
PT ADMITTED FOR RESP FAILURE WITH HYPOXIA WITH COVID, PT STARTED DAY ON 15L HIFLOW NASAL CANULA W/SPO2 IN THE LOW TO MID 90S, CPOX IN USE, VITAL SIGNS OTHERWISE STABLE, NSR PER MONITOR, PT REPORTS SORE THROAT, OTHERWISE DENIES PAIN, VOICE IS HOARSE. PLAN IS FOR A VQ SCAN TODAY. [id number]: PT NOTED TO BE HAVING INCREASED DESATS INTO THE LOW 80S WITH PROLOGED TIME FOR RECOVERY, PLACED ON NRB MASK AT 15L IN ADDITION TO THE HIGH FLOW CANNULA, SPO2 INCREASED TO THE MID TO UPPER 90S. 1600: EVEN WITH BOTH NASAL CANNULA AND NRB, SPO2 ONLY IN TBE LOW 90S, SPOKE WITH RT ABOUT CHANGING O2 MODALITY ONCE PT RETURNS FROM VQ SCAN (PLANNED FOR 1700 AT THIS TIME). [id number]: PT TRANSPORTED TO VQ STUDY WITH RT ACCOMPANYING DUE TO OXYGENATION CONCERNS.
[2021-02-26 04:06] LABS: Albumin, Blood 2.2 g/dL (3.4-5.0); Albumin/Globulin Ratio 0.4 (0.8-1.8); Bilirubin, Total 0.4 mg/dL (0.1-1.0); Bun/Creatinine Ratio 40.4 (12.0-20.0); Calcium, Blood 9.5 mg/dL (8.5-10.1); Creatinine, Blood 1.09 mg/dL (0.40-1.00); Globulin, Blood 5.8 g/dL (2.2-4.0); Potassium, Blood 3.6 mmol/L (3.5-5.5)
--- NOTE | 2021-02-26 05:17 | NUR ---
SHIFT SUMMARY ASSUMED CARE OF PT AT 1900. PT WAS AL/O4 BUT T/O THE NIGHT PT BECAME VERY FORGETFUL. PT PULLED OFF HER MASK REPEATIVLY AND WOUND DESATURATE TO 65% AND TAKE SEVERAL MIN TO COME BACK UP TO 88%. PT WAS ON HIGHFLOW NC WITH NRB AT THE START OF SHIFT BUT WAS QUICKLY CHANGED TO AIRVO AT 50L AT 100%. PT WAS INCREASED TO 65LPM THIS AM AFTER SHE TOOK OFF HER MASK A THIRD TIME. PT FACE IS VERY PALE AND PT SAYS SHE FEELS VERY TIRED. PT C/O SOB, BUT WHEN EDUCATED ABOUT HOW SHE MIGHT NEED A MASK FOR BIPAP THERAPY, PT SAYS THAT SHE DOESNT WANT IT. PT C/O BACK PAIN T/O THE NIGHT AND WAS MEDICATED PER EMAR. PT HAS A PADILLA DRAINING WITH GRAVITY. CALL LIGHT IN REACH, BED IN LOWEST POSTION, BED ALARM ON.
--- NOTE | 2021-02-26 13:05 | NUR ---
PATIENT'S SPO2 DROPPED TO 70%. I WENT INTO THE PATIENT'S ROOM, PRIMARY RN AT BREAK. PATIENT HAD CANNULA OUT OF HER NOSE AND ON HER CHEST. PUT CANNULA BACK IN PATIENT'S NOSE. SPO2 INCREASED TO LOW 90S. SHE SAID THAT HER THROAT "REALLY HURT" AND RATED IT A 10/10. GAVE HER FLUIDS, PERFORMED ORAL CARE, GAVE HER HOT TEA, AND ADMINISTERED ANOTHER OXYCODONE PER EMAR. PATIENT NOW RESTING IN BED WITH EYES CLOSED. REPORTED TO PRIMARY RN.
--- NOTE | 2021-02-26 13:46 | NUR ---
[id number]:SAFE HANDOFF REC'D, ASSUMED CARE OF PT, ASSESSMENT COMPLETED. PT ADMITTED FOR ACUTE HYPOXIC RESPIRATORY FAILURE WITH COVID AND HAS BEEN REQUIRING THE USE OF HIFLOW 02 VIA AIRVO AT 65L AND 85%. PT'S OXYGENATION STATUS HAS BEEN QUITE UNSTABLE AND SHE DESATS EASILY WITH MINIMAL ACTIVITY OR IF O2 IS DISLODGED EVEN BREIEFLY. PT IS NOTED TO BE SINUS TACHYCARDIC THIS AM WITH HR IN THE 120 RANGE. [id number]: PT BECOMING INCREASINGLY AGITATED, REPORTS SEVERE SORE THROAT AND MEDICATED W/CEPACOL LOZENGE AND OXYCODONE FOR PAIN WELL LORAZEPAM 0.5 MG X2 WITHOUT MUCH RELIEF. DISCUSSED THE USE OF CPAP/BIPAP WITH PT BUT SHE STATES THAT THIS IS VERY SCARY FOR HER BECAUSE HER MOM WAS ON IT. ALSO SPOKE WITH PT'S SON SANTIAGO WHO STATES THAT PT LIVES WITH HIM AND HIS BROTHER, HE STATES THAT PT IS COGNITIVELY DISABLED AND HE IS WORRIED THAT PT DOES NOT UNDERSTAND WHAT IS HAPPENING. HE STATES THAT HE AND HIS BROTHER WOULD LIKE TO COME IN AND SEE PT. DEFERRED THIS TO CHARGE NURSE.
--- NOTE | 2021-02-26 14:02 | NUR ---
SOLE CONTACT for future family communication is Aly Apodacalps [phone]. Aly will update his brothers and other family memebers. Call received from pt's other sons Serafin and Mainor earlier with threats of legal action against staff if pt allowed to determine her own care decisions. Pt is currently alert and oriented and agreeable to maintaining tx goal of recovery from Covid at this time. Pt was requesting hospice care early am. Current plan is to treat pt's anxiety with regular administration of anti-anxiety agent prn, treat her extreme throat pain and support her with all current treatments ordered. Pt verbalizes agreement with that plan. updated that pt now willing to cont with treatment for now. RN and flat screen worker updated. Pt stated she wants to keep trying for at least 24-48 hours, as long as it does not require ventilation or 24 hr bipap use. We may try proning also. Pt does get anxious and irritated by high flow/airvo canula and remove it. She is currently on 100% FIO2 at at least 60L per nursing. This cannot be replicated outside of the hospital so d/c to home with family may not be an option if we cannot get O2 dependence decreased to lower liter flow. Plan to update Aly later today and reassess in am with pt visit. I was able to get pt to drink iced nutritional supplement and liza mist while in with her. When she is resting quietly, after rx for anxiety biox 92-94%. Spoke with RT also at the time of my visit. I have had three phone conversations with son, Aly, who is in full support of this plan. Family will be invited in if pt's condition worsens or she is adamently requesting comfort care as she was this am.
--- NOTE | 2021-02-27 06:05 | NUR ---
SHIFT SUMMARY ASSUMED CARE OF PT AT 1900. PT WAS VERY AGITATED AT THE START OF SHIFT AND HAD EPISODES T/O THE NIGHT. PT WAS MEDICATED WITH ATIVAN AND MORPHINE. MORPHINE HELPS THE PT MORE THAN THE ATIVAN. AT AROUND MIDNIGHT, PT WAS NOT TOLERATING PRECEDEX AT 0.7, HOSPITALIST NOTIFED AND ORDERED PT TO BE ABLE TO GO UP TO 1.4 IF NEEDED. PT REMAINED AT 0.9 T/O THE NIGHT. LUNG SOUNDS ARE VERY COURSE, PT REMAINED ON THE CPAP AT 15L AT 100%. PT WAS ABLE TO PULL OFF MASK MULTIPLE TIMES SAYING "I CAN'T BREATH" AND REACHED 65% IN SATURATION, PT TAKES A WHILE TO REGAIN SATURATIONS. PT HAS A PADILLA DRAINING DARK EVANGELIST URINE, HOSPITALIST NOTIFED OF PT INCREASED OXYGEN NEEDS AND ORDERD ONE BAG OF NS @ 75. PT SON RADHA UPDATED ABOUT CARE THIS EVENING AND IS ASKING TO COME IN AND SEE HIS MOTHER. PALLITIVE CARE CONSULTED PER DAYSHIFT REPORT. CALL LIGHT IN REACH, BED IN LOWEST POSITON, BED ALARM ON.
--- NOTE | 2021-02-27 07:45 | NUR ---
PATIENT RESTING COMFORTABLE ON CPAP 15, FIO2 100% WITH SATS >90%. INCREASE AGGITATION NOTED WITH TACTILE STIMULI. ALERT AND ORENTED TO SELF ONLY, MUMBLE SPEECH. MOUTH CARE PERFORMED. WILL MAKE NPO STATUS DUE TO RISK OF ASPIRATION. LIGHTLY SEDATED ON PRECEDEX GTT 0.5MCG/KG/HR BUT INCREASED 1MCG DUE TO INCREASE AGGITATION PULLING AT RESTRAINTS AND WHEN REPOSITIONING ATTEMPTS TO PULL OFF CPAP MASK. RESPIRATORY THERAPY AT BEDSIDE, MADE CHANGES TO CPAP MODE TO BIPAP MODE 10/6, FIO2 100% DUE TO DECREASE SATURATIONS AND INCREASE WORK OF BREATHING. LUNGS CLEAR DECREASE BASES, OCCASIONAL METER SHOP SUPERINTENDENT COUGH NOTED. PADILLA IN PLACE TO GRAVITY. NO OTHER ACUTE CHANGES. CONTINUE TO MONITOR AND TX PRN.
--- NOTE | 2021-02-27 10:32 | NUR ---
Case conference with pt's RN & and review of EMR done early this am. T/c to son, Aly, with report on pt's increasing resp failure and bipap dependence. Aly in agreement with following his mom's stated wishes yesterday for comfort care. Discussed with and RN again. Comfort care orders received and entered. Three sons expected in around noon today. We will keep bipap on if pt allows it until sons arrive. Pt is requiring precedex for extreme anxiety with respiratory support. Plan to decrease and d/c precedex if able once bipap is transitioned to nasal canula again.
--- NOTE | 2021-02-27 13:02 | NUR ---
1230 X4 SONS ARRIVED TO SEE MOTHER AT BEDSIDE. UPDATED FAMILY WITH STATUS. TURNED OFF PRECEDEX GTT AND IVF'S AND REMOVED BIPAP AND PLACED NRB MASK TO HIGH FLOW NC. CALLED TO PALLATIVE CARE; MEENA TO COME TO BEDSIDE. MEDICATED WITH ROXANOL AND ATIVAN FOR COMFORT. CONTINUE TO MONITOR AND TX PRN.
--- NOTE | 2021-02-27 13:25 | NUR ---
SOME RELIEF WITH ATIVAN AND ROXANOL. MORPHINE 3MG IVP GIVEN FOR PAIN/COMFORT. CONTINUE TO MONITOR.
--- NOTE | 2021-02-27 14:30 | NUR ---
Notified of sons' arrival to pt's room. Comfort care visit made. Pt struggling with respirations and anxiety/pain. Comfort care medications discussed with RN and administered with good relief in 5-10 minutes. Once pt was comfortable we were able to put nasal canula back in her nose and she did not attempt to remove it. Kpad placed on cool setting and positioned under her legs to assist with restless leg syndrome, chronic to pt. Son stated that cool pad relieved at home. Sons are tearful, distraught. Two sons expressed angrily, "you can't just let her !" Son, Aly and I reiterated that pt made her wishes known & she requested comfort care yesterday but agreed to try for another day. Unfortunataely, s/s worsened despite aggressive efforts to tx her covid pneumonia, air hunger, pain and anxiety. When two of four sons started to escalate in their behaviour pt became very agitated. I explained to sons that there would be no shouting or conflict allowed at the bedside and they would need to go outside for that. Aly stated, "We came here to say goodbye, not to talk her out of what she has decided". Two sons were too upset with droping pulse biox #s and pt's s/s to stay. Two other sons stayed at either side of the bed with pt, who was able to rest quietly once tense discussions were ended. Bedside RN and I stayed in room and provided personal care and support. Additional medications given per eMAR when pt's RR increased and nonverbal indicators of pain and restlessness noted. RN left room and I stayed another 30 minutes. Comfort Care cart offered and sons declined and said they were fine for now. Pt woke occassionally and stated she was cold or hot. Son's expressing love for her and she appeared calmed by their presence now. Resp effort increased and color dusky. Last biox prior to removing monitor was around 70%. Medications per eMar appear to be managing her s/s well currently. Pt is mostly mouth breathing but did not tolerate nonrebreather mask and pulled it off repeatedly. Coughing is productive at times and when she appears most uncomfortable. RN provided Oral care and then son and I provided again when she appeared to cough up some phlegm. We were able to remove some secretions from her mouth. Pal Care to remain available for support for the rest of the afternoon/early ayala.
--- NOTE | 2021-02-27 14:39 | NUR ---
FAMILY REMAINNS AT BEDSIDE. RESTING COMFORTABLE. PATIENT OPENS EYES TO VERAL STIMULI. WHEN ASKED IF HAVING PAIN, NODS HEAD "YES". WILL MEDICATE WITH ROXANOL.
--- NOTE | 2021-02-27 16:01 | NUR ---
SOME RELIEF WITH ROXANOL. PATIENT STATES "I HAVE PAIN". ADDITION MORPHINE AND ATIVAN GIVEN FOR COMFORT. TITRATE O2 7L/NC.
--- NOTE | 2021-02-27 19:30 | NUR ---
REPORTED OFF TO NOC SHIFT. PATIENT RESTING COMFORTABLE IN BED; COMFORT CARE. FAMILY ARRIVED TODAY AT [facility] AND OTHER FAMILY BEEN HERE TO SEE PATIENT. TOLERATING MEDICATION REGIMEN WITH ATIVAN, ROXANOL AND MORPHINE. REMAINS ON 02 2L/NC. NO OTHER CHANGES.
--- NOTE | 2021-02-28 05:58 | NUR ---
SHIFT SUMMARY ASSUMED CARE OF PT AT 1900. PT RESPONDS TO TOUCH AND VERBAL STIMULUS. PT SON SANTIAGO WAS IN ROOY AT THE START OF SHIFT. HE EXPRESSED THAT HE WANTS TO TAKE HIS MOTHER HOME ON HOSPICE BECAUSE THAT IS HER WISH. SON EDUCATED ABOUT HOW DIFFICULT THIS DECISION WILL BE. PT RESPIRATIONS WERE UNEVEN BUT UNLABORED. PT WAS MEDICATED FOR BACK PAIN WITH MORPHINE. CATHETER DRAINING EVANGELIST URINE WITH GRAVITY. PT SON DIONISIO AND RADHA ALSO VISITED. CALL LIGHT IN REACH, BED IN LOWEST POSITION, BED ALARM ON.
--- NOTE | 2021-02-28 07:38 | NUR ---
PATIENT ALERT TO SELF, OPENS EYES. SPEECH CLEARING AND ABLE TO UNDERSTAND. STATES "YES" TO HAVING PAIN. SUPERVISOR LUMP ROOM'S IN ROOM DOING AM CARE/BATH CARE. MEDICATED WITH ROXANOL PER ORDERS FOR PAIN/COMFORT. LUNGS REMAIN CLEAR. DC'D . OFFERED PO INTAKE THIS AM AND PATIENT STATED "YES" TO IT. WHEN SUPERVISOR LUMP ROOM OFFERED APPLE JUICE, PATIENT REFUSED. CONTINUE TO MONITOR AND TX FOR PAIN/COMFORT.
--- NOTE | 2021-02-28 09:46 | NUR ---
SON SANTIAGO IS HERE AT BEDSIDE AND REQUESTING FOR PATIENT TO HAVE OXYGEN BACK ON. EXPLAIN TO HIM THE REASON FOR IT BEING OFF. O2 2L/NC PLACED. WHEN ATTEMPTED TO PLACE ON PATIENT, SON WOULDN'T LET ME AND SAID "I'LL DO IT, YOUR TO ROUGH". PATIENT IS AWAKE, ALERT TO SELF AND FAMILY. JOSE HENDERSON ASKING TO START PROCESS FOR HOSPICE AND TO TAKE PATIENT HOME. ALSO, ASKED TO SPEAK TO A POLYSOMNOGRAPHY TECHNICIAN. I TOLD SON THAT I WOULD GET A HOLD OF PALLATIVE CARE TO START THE PROCESS. PALLATIVE CARE NOTIFIED.
--- NOTE | 2021-02-28 10:51 | NUR ---
1041 FAMILY REQUESTING FOR PAIN MED. MORPHINE 5MG IV AND ATIVAN 2MG IV GIVEN FOR PAIN/COMFORT. PATIENT RESTING QUIETLY WITH ANOTHER SON AT BEDSIDE.
--- NOTE | 2021-02-28 11:48 | NUR ---
CHECKED ON PATIENT, RESTING/SLEEPING COMFORTABLE. ASKED FAMILY IF THEY WOULD LIKE TO REPOSITION AND SON WAS OK LEAVING PATIENT IN THE SAME POSITION. CONTINUE TO MONITOR AND TX PRN.
--- NOTE | 2021-02-28 13:28 | NUR ---
Summary of events and conversations with Pt's sons, RN, , CM and hospice agencies. Josh is resting comortably this am when medicated per eMAR prn for anxiety, pain and air hunger. She is only intermittently using O2. Family would like her to go home on hospice. Initially we could not get an available hospice agency until tomorrw but just now [place] indicates they can see Deisy at her home on [address] [facility] where she lives with two sons tonight if we can get her home by 4:30 pm. Care managers and hospice will complete the arrangements for this with son, Aly, if family still wanting to do this. I have informed two sons, Aly and Serafin, that pt may not survive transport or may pass quickly at home. They feel Deisy would prefer to try & be home at the time of her passing. Serafin has some unrealistic expectations that they can make her better at home. He is agreeable to not calling 911 or attempting CPR. He states he will respect mom's wishes for DNR, Despite not liking or agreeing with those orders. Pt was not able to state wehre she is today but is communicating. She remains severely hypoxic and in respiratory failure. Sons have hospital bed set up already. She has a adame catheter in place. Primary needs at home are hospice support, medications for comfort and transport home. TONI completed and waiting for signature for EMS/transport crew and hospice agency.
--- NOTE | 2021-02-28 13:37 | NUR ---
CALLED SON RADHA TO INFORM THE PLAN FOR MOTHERS TRANSFER HOME TODAY AT 1600.
[2021-02-28] MEDS ORDERED: MORP20L SL (13:50)
[2021-02-28] MEDS ORDERED: Ativan1 MG PO (13:51)
--- NOTE | 2021-02-28 14:51 | NUR ---
DC'D IV SITE FOR DISCHARGE. MEDICATED WITH ROXANOL FOR PAIN/COMFORT. MOANING WITH TACTILE STIMULI. SONS AT BEDSIDE.
--- NOTE | 2021-02-28 17:33 | NUR ---
MEDICATED WITH ROXANOL AND ATIVAN SL FOR DISCHARGE TRANSPORT. FAMILY AT BEDSIDE.
--- NOTE | 2021-02-28 18:00 | NUR ---
[facility] DIDN'T ARRIVE AT THE 1730 TIME FOR TRANSPORT. CHARGE NURSE PEYTON CALLED TO [facility] AND FURNACE LOADER INFORMED HER THAT THEY ARE TIED UP, COULD NOT GIVE AN ETA TIME. UPDATED SON AURY AND ASKED IF HE CAN TALK WITH [facility] ST[facility] THAT IS AWAITING AT THEIR HOUSE. SON WAS VERY UNDERSTANDING. ASKED HIM TO ASK [facility] IF THEY CAN COME TO EVAULATE PATIENT AT HOSPITAL AND FAMILY WILL AWAIT FOR [facility] TO TRANSPORT PATIENT HOME. PATIENT IS RESTING QUIETLY/COMFORTABLE AT THIS TIME.
--- NOTE | 2021-02-28 18:47 | NUR ---
PATIENT DISCHARG TO HOME VIA [facility]. ALL BELONGINGS SENT WITH PATIENT'S FAMILY. PRE-MEDICATED WITH ROXANOL 20MG SL FOR TRANSPORT
== END 2021-02-28 18:50 | disposition hospice, home (50) | DRG 177 ==
LOC: ER 17:12 → PCU 20:56
PROVIDERS: Internal Medicine; Student in an Organized Health Care Education/Training Program; ADMIT Hospitalist
PROC: 8E0ZXY6 Isolation (ICD-10-PCS; principal; 2021-02-23)
PROC: 5A09457 Assistance with Respiratory Ventilation, 24-96 Consecutive Hours, Continuous Positive Airway Pressure (ICD-10-PCS; 2021-02-23)
PROC: 3E0333Z Introduction of Anti-inflammatory into Peripheral Vein, Percutaneous Approach (ICD-10-PCS; 2021-02-23)
PROC: XW033E5 Introduction of Remdesivir Anti-infective into Peripheral Vein, Percutaneous Approach, New Technology Group 5 (ICD-10-PCS; 2021-02-23)
PROC: 5A0935A Assistance with Respiratory Ventilation, Less than 24 Consecutive Hours, High Flow/Velocity Cannula (ICD-10-PCS; 2021-02-25)
DX: U07.1 COVID-19 (principal); J96.01 Acute respiratory failure with hypoxia; J12.82 Pneumonia due to coronavirus disease 2019; N17.9 Acute kidney failure, unspecified; E87.1 Hypo-osmolality and hyponatremia; I10 Essential (primary) hypertension; E78.5 Hyperlipidemia, unspecified; Z66 Do not resuscitate; Z51.5 Encounter for palliative care; Z88.8 Allergy status to other drugs, medicaments and biological substances; F41.9 Anxiety disorder, unspecified; E10.9 Type 1 diabetes mellitus without complications; M10.9 Gout, unspecified; R74.01 Elevation of levels of liver transaminase levels; E03.9 Hypothyroidism, unspecified; N32.81 Overactive bladder; Z88.2 Allergy status to sulfonamides; Z88.1 Allergy status to other antibiotic agents; Z88.0 Allergy status to penicillin; Z90.49 Acquired absence of other specified parts of digestive tract; Z90.710 Acquired absence of both cervix and uterus; Z90.721 Acquired absence of ovaries, unilateral; Z98.890 Other specified postprocedural states; Z91.041 Radiographic dye allergy status; Z79.899 Other long term (current) drug therapy; E83.42 Hypomagnesemia
CPT/HCPCS: 36415; 36600; 71045; 78580; 80048; 80053; 80061; 81003; 82728; 82803; 82947; 83735; 83880; 84443; 84484; 85025; 85379; 86141; 93005; 93010; 94640; 94660; 94664; 94760; 94762; 96365; 96366; 96368; 96375; 99285-25; A9270; A9540; C1751; C9113; J1100; J1650; J1815; J1885; J1940; J2060; J2270; J3475; J3480; J7030; J7050

== ENCOUNTER → 2022-01-20 | Outpatient (CLI) | payer OTHER | END | disposition home or self-care (01) | LOC: LAB 17:38 | DX: R07.9 Chest pain, unspecified (principal) ==

== ENCOUNTER → 2022-04-03 | Outpatient (CLI) | payer OTHER ==
[~2022-04-03] MED LIST changes: +ALLOPURINOL100 M1 PO; +AMIT50 PO; +ATORVASTATIN CA20 MG PO; +Ativan1 MG PO; +DILTIAZEM 24HR180 M4 PO; +EZETIMIBE10 M6 PO; +FUROSEMIDE20 MG PO; +LISINOPRIL-HCT1 EACH PO; +METFORMIN HCL1000 M9 PO; +METOPROLOL TART50 M5 PO; +MORP20L SL; +MYRBETRIQ25 MG PO; +PANTOPRAZOLE SO40 M2 PO; +QUETIAPINE FUM PO; +SYNTHROID175 MC1 PO
[2022-04-03 13:51] LABS: BASOPHILS ABSOLUTE AUTO 0.02 K/mm3 (0.00-0.23); BASOPHILS PERCENT AUTO 0 % (0-2); EOSINOPHILS ABSOLUTE AUTO 0.15 K/mm3 (0.00-0.68); EOSINOPHILS PERCENT AUTO 3 % (0-6); Hematocrit 33.6 % (33.0-51.0); Hemoglobin 11.4 g/dL (11.5-16.0); IMMATURE GRAN ABSOLUTE AUTO 0.01 K/mm3 (0.00-0.10); IMMATURE GRAN PERCENT AUTO 0 % (0-1); LYMPHOCYTES ABSOLUTE AUTO 1.83 K/mm3 (0.84-5.20); LYMPHOCYTES PERCENT AUTO 33 % (21-46); MONOCYTES ABSOLUTE AUTO 0.35 K/mm3 (0.16-1.47); MONOCYTES PERCENT AUTO 6 % (4-13); Mean Corpuscular HGB 33.6 pg (26.0-34.0); Mean Corpuscular HGB Conc 33.9 g/dL (31.5-36.5); Mean Corpuscular Volume 99 fL (80-100); Mean Platelet Volume 9.6 fL (9.1-12.4); NEUTROPHILS PERCENT AUTO 58 % (41-73); Platelet Count 182 K/mm3 (150-400); RDW Coefficient Variation 12.7 % (11.7-14.2); RDW Standard Deviation 45.6 fL (35.1-46.3); Red Blood Cell Count 3.39 M/mm3 (3.80-5.20); White Blood Cell Count 5.56 K/mm3 (4.00-11.30)
[2022-04-03 14:11] LABS: Albumin, Blood 3.9 g/dL (3.4-5.0); Bilirubin, Total 0.3 mg/dL (0.1-1.0); Bun/Creatinine Ratio 29.4 (12.0-20.0); Calcium, Blood 9.2 mg/dL (8.5-10.1); Creatinine, Blood 1.7 mg/dL (0.40-1.00); Globulin, Blood 3.8 g/dL (2.2-4.0); Potassium, Blood 4.1 mmol/L (3.5-5.5); Thyroid Stimulating Hormone 0.387 uIU/mL (0.360-4.800); Total Protein, Blood 7.7 g/dL (6.4-8.2)
[2022-04-03 14:21] LABS: Magnesium, Blood 1.1 mg/dL (1.6-2.4)
== END ==
LOC: LAB 13:47 → LAB SHORT 13:47
PROVIDERS: Physician Assistant Medical
DX: R53.83 Other fatigue (principal); R26.89 Other abnormalities of gait and mobility
CPT/HCPCS: 80053; 83735; 84443; 85025

== ENCOUNTER → 2022-04-18 | Outpatient (CLI) | payer OTHER ==
[2022-04-18 12:49] LABS: BASOPHILS ABSOLUTE AUTO 0.02 K/mm3 (0.00-0.23); BASOPHILS PERCENT AUTO 0 % (0-2); EOSINOPHILS PERCENT AUTO 3 % (0-6); Hematocrit 33.8 % (33.0-51.0); Hemoglobin 11.1 g/dL (11.5-16.0); IMMATURE GRAN ABSOLUTE AUTO 0.03 K/mm3 (0.00-0.10); IMMATURE GRAN PERCENT AUTO 0 % (0-1); LYMPHOCYTES ABSOLUTE AUTO 3.63 K/mm3 (0.84-5.20); LYMPHOCYTES PERCENT AUTO 47 % (21-46); MONOCYTES PERCENT AUTO 7 % (4-13); Mean Corpuscular HGB 33.6 pg (26.0-34.0); Mean Corpuscular HGB Conc 32.8 g/dL (31.5-36.5); Mean Corpuscular Volume 102 fL (80-100); Mean Platelet Volume 9.3 fL (9.1-12.4); NEUTROPHILS PERCENT AUTO 43 % (41-73); Platelet Count 206 K/mm3 (150-400); RDW Coefficient Variation 13.9 % (11.7-14.2); White Blood Cell Count 7.68 K/mm3 (4.00-11.30)
[2022-04-18 13:21] LABS: Albumin, Blood 3.7 g/dL (3.4-5.0); Bilirubin, Total 0.2 mg/dL (0.1-1.0); Bun/Creatinine Ratio 15.6 (12.0-20.0); Calcium, Blood 8.9 mg/dL (8.5-10.1); Creatinine, Blood 1.47 mg/dL (0.40-1.00); Globulin, Blood 3.7 g/dL (2.2-4.0); Magnesium, Blood 1.4 mg/dL (1.6-2.4); Potassium, Blood 4.4 mmol/L (3.5-5.5); Total Protein, Blood 7.4 g/dL (6.4-8.2)
== END | disposition home or self-care (01) ==
LOC: LAB 12:45 → LAB SHORT 12:45
PROVIDERS: Family Medicine
DX: D53.9 Nutritional anemia, unspecified (principal); R42 Dizziness and giddiness
CPT/HCPCS: 80053; 82607; 82746; 83735; 85025

== ENCOUNTER → 2022-05-04 | Outpatient (CLI) | payer OTHER ==
[2022-05-04 13:19] LABS: Protein, Urine Quantitative 15.8 mg/dL (0.0-11.9)
[2022-05-04 13:21] LABS: Microalbumin, Urine Quant. 8.87 mg/L (0.000-20.000)
[2022-05-04 20:15] LABS: Calcium, Urine <5.0 mg/dL (< 17.5); Calcium, Urine Calculation Unable to Calculate mg/24hrs (42.0-353.0); Phosphorus, Urine >90.0 mg/dL (20.0-60.0)
== END | disposition home or self-care (01) ==
LOC: LAB SHORT 08:45 → LAB FUT 05-02 13:40
PROVIDERS: Internal Medicine Nephrology
DX: R76.9 Abnormal immunological finding in serum, unspecified (principal); R94.5 Abnormal results of liver function studies; R94.6 Abnormal results of thyroid function studies; N25.81 Secondary hyperparathyroidism of renal origin; E55.9 Vitamin D deficiency, unspecified; E78.00 Pure hypercholesterolemia, unspecified; D63.1 Anemia in chronic kidney disease; N18.30 Chronic kidney disease, stage 3 unspecified
CPT/HCPCS: 81050; 82043; 82340; 82570; 84105; 84133; 84156; 84300

== ENCOUNTER 2022-09-08 02:11 | Day surgery (SDC) | payer OTHER ==
[~2022-09-08 02:11] MED LIST changes: +CATAPRES0.1 MG PO; +DILTIAZEM 24HR180 M3 PO; +EUTHYROX150 MC1 PO; +GLIP10 PO; +KLOR-CON M1010 MEQ PO; +METF500 PO; +NITROGLYCERIN0.4 M3 SL; +PRAZ1 PO; +PRILOSEC OTC20 MG PO; +QUET300 PO; +Ventolin/Prove6.7 GM INH
[2022-09-08] MEDS ORDERED: BENZ100A PO (09:58)
[2022-09-08] MEDS ORDERED: AMIT50 PO (09:58)
[2022-09-08] MEDS ORDERED: CARB200 PO (09:59)
[2022-09-08] MEDS ORDERED: CELE100 PO (10:00)
[2022-09-08] MEDS ORDERED: EZET10 PO (10:02)
[2022-09-08] MEDS ORDERED: BREO ELLIPTA 11 EAC1 INH (10:02)
[2022-09-08] MEDS ORDERED: MAG GLYCINATE100 MG PO (10:11)
[2022-09-08] MEDS ORDERED: MECL25 PO (10:12)
[2022-09-08] MEDS ORDERED: METO50ER PO (10:14)
== END 2022-09-08 11:19 | disposition home or self-care (01) ==
LOC: ATC 02:11
DX: E83.42 Hypomagnesemia (principal); E11.9 Type 2 diabetes mellitus without complications; Z88.5 Allergy status to narcotic agent; Z88.0 Allergy status to penicillin; Z88.2 Allergy status to sulfonamides; Z88.8 Allergy status to other drugs, medicaments and biological substances; Z88.6 Allergy status to analgesic agent; Z88.1 Allergy status to other antibiotic agents; Z91.030 Bee allergy status; Z91.041 Radiographic dye allergy status
CPT/HCPCS: 96365; 96366; J3475

== ENCOUNTER 2022-09-13 18:00 | Emergency (ER) | payer OTHER ==
[~2022-09-13] VITALS: Ht 162.6 cm; Wt 95.2 kg
[~2022-09-13 18:00] MED LIST changes: +BREO ELLIPTA 11 EAC1 INH; +CARB200 PO; +CELE100 PO; +MAG GLYCINATE100 MG PO; +MECL25 PO; +METO50ER PO
[2022-09-13 18:58] LABS: BASOPHILS ABSOLUTE AUTO 0.03 K/mm3 (0.00-0.23); BASOPHILS PERCENT AUTO 0 % (0-2); EOSINOPHILS ABSOLUTE AUTO 0.13 K/mm3 (0.00-0.68); EOSINOPHILS PERCENT AUTO 2 % (0-6); Hematocrit 34.2 % (33.0-51.0); Hemoglobin 11.5 g/dL (11.5-16.0); IMMATURE GRAN ABSOLUTE AUTO 0.05 K/mm3 (0.00-0.10); IMMATURE GRAN PERCENT AUTO 1 % (0-1); LYMPHOCYTES ABSOLUTE AUTO 4.06 K/mm3 (0.84-5.20); LYMPHOCYTES PERCENT AUTO 46 % (21-46); MONOCYTES ABSOLUTE AUTO 0.62 K/mm3 (0.16-1.47); MONOCYTES PERCENT AUTO 7 % (4-13); Mean Corpuscular HGB 33.7 pg (26.0-34.0); Mean Corpuscular HGB Conc 33.6 g/dL (31.5-36.5); Mean Corpuscular Volume 100 fL (80-100); Mean Platelet Volume 9.8 fL (9.1-12.4); NEUTROPHILS ABSOLUTE AUTO 3.93 K/mm3 (1.96-9.15); NEUTROPHILS PERCENT AUTO 45 % (41-73); Platelet Count 288 K/mm3 (150-400); RDW Coefficient Variation 13.5 % (11.7-14.2); RDW Standard Deviation 49.3 fL (35.1-46.3); Red Blood Cell Count 3.41 M/mm3 (3.80-5.20); White Blood Cell Count 8.82 K/mm3 (4.00-11.30)
[2022-09-13 20:35] LABS: Albumin, Blood 3.5 g/dL (3.4-5.0); Bilirubin, Total 0.3 mg/dL (0.1-1.0); Bun/Creatinine Ratio 14.3 (12.0-20.0); Calcium, Blood 8.6 mg/dL (8.5-10.1); Creatinine, Blood 0.98 mg/dL (0.40-1.00); Globulin, Blood 3.6 g/dL (2.2-4.0); Magnesium, Blood 1.1 mg/dL (1.6-2.4); Total Protein, Blood 7.1 g/dL (6.4-8.2)
[2022-09-13 22:47] VITALS: BP 124/73
== END 2022-09-13 22:46 | disposition home or self-care (01) ==
LOC: ER 18:00
PROVIDERS: Student in an Organized Health Care Education/Training Program
DX: E83.42 Hypomagnesemia (principal); R94.31 Abnormal electrocardiogram [ECG] [EKG]; K52.9 Noninfective gastroenteritis and colitis, unspecified; T50.2X5A Adverse effect of carbonic-anhydrase inhibitors, benzothiadiazides and other diuretics, initial encounter; G43.909 Migraine, unspecified, not intractable, without status migrainosus; E11.9 Type 2 diabetes mellitus without complications; I10 Essential (primary) hypertension; E78.5 Hyperlipidemia, unspecified; E03.9 Hypothyroidism, unspecified; K21.9 Gastro-esophageal reflux disease without esophagitis; E66.01 Morbid (severe) obesity due to excess calories; Z88.0 Allergy status to penicillin; Z88.8 Allergy status to other drugs, medicaments and biological substances; Z88.1 Allergy status to other antibiotic agents; Z88.2 Allergy status to sulfonamides; Z91.041 Radiographic dye allergy status; Z79.899 Other long term (current) drug therapy; Z79.84 Long term (current) use of oral hypoglycemic drugs; Z68.36 Body mass index [BMI] 36.0-36.9, adult
CPT/HCPCS: 36415; 80053; 83735; 85025; 93005; 93010; 96365; 96366; 99283-25; A9270; J3475

== ENCOUNTER 2022-09-20 01:08 | Day surgery (SDC) | payer OTHER ==
[2022-09-20 14:00] VITALS: BP 112/72
== END 2022-09-20 15:45 | disposition home or self-care (01) ==
LOC: ATC 01:08
DX: E83.42 Hypomagnesemia (principal); E11.9 Type 2 diabetes mellitus without complications; K21.9 Gastro-esophageal reflux disease without esophagitis; Z88.1 Allergy status to other antibiotic agents; Z88.8 Allergy status to other drugs, medicaments and biological substances; Z88.5 Allergy status to narcotic agent; Z88.2 Allergy status to sulfonamides; Z79.84 Long term (current) use of oral hypoglycemic drugs; Z79.890 Hormone replacement therapy; Z79.899 Other long term (current) drug therapy
CPT/HCPCS: 96365; 96366; J3475

== ENCOUNTER 2022-09-21 01:18 | Day surgery (SDC) | payer OTHER ==
[2022-09-21 13:58] VITALS: BP 104/49
== END 2022-09-21 16:26 | disposition home or self-care (01) ==
LOC: ATC 01:18
DX: E83.42 Hypomagnesemia (principal); G43.711 Chronic migraine without aura, intractable, with status migrainosus; Z88.1 Allergy status to other antibiotic agents; Z88.5 Allergy status to narcotic agent; Z88.2 Allergy status to sulfonamides; Z88.0 Allergy status to penicillin; Z88.6 Allergy status to analgesic agent; Z79.899 Other long term (current) drug therapy
CPT/HCPCS: 96365; 96366; J3475

== ENCOUNTER → 2022-09-21 | Outpatient (CLI) | payer OTHER ==
[2022-09-21 20:16] LABS: Microalbumin, Urine Quant. <5.000 mg/L (0.000-20.000)
== END | disposition home or self-care (01) ==
LOC: LAB SHORT 17:09 → LAB FUT 09-19 10:35
PROVIDERS: Internal Medicine Nephrology
DX: N18.2 Chronic kidney disease, stage 2 (mild) (principal); D63.1 Anemia in chronic kidney disease; N25.81 Secondary hyperparathyroidism of renal origin; E55.9 Vitamin D deficiency, unspecified; E78.00 Pure hypercholesterolemia, unspecified; R76.9 Abnormal immunological finding in serum, unspecified; R94.5 Abnormal results of liver function studies; R94.6 Abnormal results of thyroid function studies
CPT/HCPCS: 81050; 82043; 82570

== ENCOUNTER 2022-09-22 00:37 | Day surgery (SDC) | payer OTHER ==
[2022-09-22 14:30] VITALS: BP 109/74
== END 2022-09-22 17:07 | disposition home or self-care (01) ==
LOC: ATC 00:37
DX: E83.42 Hypomagnesemia (principal)
CPT/HCPCS: 96365; 96366; C1751; J3475

== ENCOUNTER 2022-09-25 | Day surgery (SDC) | payer OTHER ==
[2022-09-25 09:43] VITALS: BP 95/59
== END 2022-09-25 09:45 | disposition home or self-care (01) ==
LOC: ATC
DX: E83.42 Hypomagnesemia (principal)
CPT/HCPCS: 36415; 83735; 99211

== ENCOUNTER 2022-09-27 15:58 | Emergency (ER) | payer OTHER ==
[~2022-09-27] VITALS: Ht 160 cm; Wt 98.0 kg
[2022-09-27 16:16] VITALS: BP 101/77
[2022-09-27 16:36] LABS: BASOPHILS ABSOLUTE AUTO 0.03 K/mm3 (0.00-0.23); BASOPHILS PERCENT AUTO 0 % (0-2); EOSINOPHILS ABSOLUTE AUTO 0.22 K/mm3 (0.00-0.68); EOSINOPHILS PERCENT AUTO 3 % (0-6); Hematocrit 34.9 % (33.0-51.0); Hemoglobin 11.6 g/dL (11.5-16.0); IMMATURE GRAN ABSOLUTE AUTO 0.05 K/mm3 (0.00-0.10); IMMATURE GRAN PERCENT AUTO 1 % (0-1); LYMPHOCYTES ABSOLUTE AUTO 3.88 K/mm3 (0.84-5.20); LYMPHOCYTES PERCENT AUTO 45 % (21-46); MONOCYTES ABSOLUTE AUTO 0.58 K/mm3 (0.16-1.47); MONOCYTES PERCENT AUTO 7 % (4-13); Mean Corpuscular HGB 33.7 pg (26.0-34.0); Mean Corpuscular HGB Conc 33.2 g/dL (31.5-36.5); Mean Corpuscular Volume 102 fL (80-100); Mean Platelet Volume 10.5 fL (9.1-12.4); NEUTROPHILS ABSOLUTE AUTO 3.95 K/mm3 (1.96-9.15); NEUTROPHILS PERCENT AUTO 45 % (41-73); Platelet Count 204 K/mm3 (150-400); RDW Coefficient Variation 12.8 % (11.7-14.2); RDW Standard Deviation 47.5 fL (35.1-46.3); Red Blood Cell Count 3.44 M/mm3 (3.80-5.20); White Blood Cell Count 8.71 K/mm3 (4.00-11.30)
[2022-09-27 16:58] LABS: Magnesium, Blood 1.5 mg/dL (1.6-2.4)
[2022-09-27 16:59] LABS: Albumin, Blood 3.5 g/dL (3.4-5.0); Albumin/Globulin Ratio 0.9 (0.8-1.8); Bilirubin, Total 0.2 mg/dL (0.1-1.0); Bun/Creatinine Ratio 36.9 (12.0-20.0); Calcium, Blood 9.3 mg/dL (8.5-10.1); Creatinine, Blood 1.3 mg/dL (0.40-1.00); Globulin, Blood 3.8 g/dL (2.2-4.0); Phosphorus, Blood 4.5 mg/dL (2.5-4.9); Total Protein, Blood 7.3 g/dL (6.4-8.2)
== END 2022-09-27 18:54 | disposition home or self-care (01) ==
LOC: ER 15:58
PROVIDERS: Physician Assistant
DX: E83.42 Hypomagnesemia (principal); I10 Essential (primary) hypertension; E10.9 Type 1 diabetes mellitus without complications; G40.909 Epilepsy, unspecified, not intractable, without status epilepticus; E78.5 Hyperlipidemia, unspecified; K21.9 Gastro-esophageal reflux disease without esophagitis; Z79.84 Long term (current) use of oral hypoglycemic drugs; Z79.899 Other long term (current) drug therapy
CPT/HCPCS: 80053; 83735; 84100; 85025; 93005; 93010; 96365; 99283-25; J3475

== ENCOUNTER 2022-09-28 02:19 | Day surgery (SDC) | payer OTHER ==
[2022-09-28 14:55] VITALS: BP 129/91
== END 2022-09-28 16:55 | disposition home or self-care (01) ==
LOC: ATC 02:19
DX: E83.42 Hypomagnesemia (principal); I10 Essential (primary) hypertension; K21.9 Gastro-esophageal reflux disease without esophagitis; E03.9 Hypothyroidism, unspecified; G47.33 Obstructive sleep apnea (adult) (pediatric); E11.42 Type 2 diabetes mellitus with diabetic polyneuropathy; Z88.1 Allergy status to other antibiotic agents; Z88.0 Allergy status to penicillin; Z88.2 Allergy status to sulfonamides; Z88.8 Allergy status to other drugs, medicaments and biological substances; Z79.84 Long term (current) use of oral hypoglycemic drugs; Z79.890 Hormone replacement therapy; Z79.899 Other long term (current) drug therapy; E78.2 Mixed hyperlipidemia
CPT/HCPCS: 96365; 96366; J3475

== ENCOUNTER 2022-09-29 03:21 | Day surgery (SDC) | payer OTHER ==
[2022-09-29 14:56] VITALS: BP 132/100
== END 2022-09-29 22:42 | disposition home or self-care (01) ==
LOC: ATC 03:21
DX: E83.42 Hypomagnesemia (principal); I10 Essential (primary) hypertension; E03.9 Hypothyroidism, unspecified; K21.9 Gastro-esophageal reflux disease without esophagitis; G47.33 Obstructive sleep apnea (adult) (pediatric); E11.42 Type 2 diabetes mellitus with diabetic polyneuropathy; E78.2 Mixed hyperlipidemia; Z88.8 Allergy status to other drugs, medicaments and biological substances; Z88.5 Allergy status to narcotic agent; Z88.1 Allergy status to other antibiotic agents; Z88.2 Allergy status to sulfonamides; Z88.0 Allergy status to penicillin; Z79.899 Other long term (current) drug therapy
CPT/HCPCS: 96365; 96366; J3475

== ENCOUNTER 2022-10-06 01:41 | Day surgery (SDC) | payer OTHER ==
[2022-10-06 13:52] VITALS: BP 106/56
== END 2022-10-06 15:44 | disposition home or self-care (01) ==
LOC: ATC 01:41
DX: E83.42 Hypomagnesemia (principal); I10 Essential (primary) hypertension; E11.42 Type 2 diabetes mellitus with diabetic polyneuropathy; G47.33 Obstructive sleep apnea (adult) (pediatric); E78.2 Mixed hyperlipidemia; E03.9 Hypothyroidism, unspecified; K21.9 Gastro-esophageal reflux disease without esophagitis; Z91.030 Bee allergy status; Z88.8 Allergy status to other drugs, medicaments and biological substances; Z88.1 Allergy status to other antibiotic agents; Z88.5 Allergy status to narcotic agent; Z88.0 Allergy status to penicillin; Z88.2 Allergy status to sulfonamides; Z79.84 Long term (current) use of oral hypoglycemic drugs; Z79.899 Other long term (current) drug therapy
CPT/HCPCS: 96365; 96366; J3475

== ENCOUNTER 2022-10-09 02:02 | Day surgery (SDC) | payer OTHER ==
[2022-10-09 16:12] VITALS: BP 97/84
== END 2022-10-09 18:05 | disposition home or self-care (01) ==
LOC: ATC 02:02
DX: E83.42 Hypomagnesemia (principal); Z88.5 Allergy status to narcotic agent; Z88.0 Allergy status to penicillin; Z88.2 Allergy status to sulfonamides; Z88.8 Allergy status to other drugs, medicaments and biological substances; Z88.6 Allergy status to analgesic agent; Z88.1 Allergy status to other antibiotic agents; Z91.030 Bee allergy status; Z91.041 Radiographic dye allergy status
CPT/HCPCS: 36569; 96365; 96366; C1751; J3475

== ENCOUNTER 2022-10-13 00:28 | Day surgery (SDC) | payer OTHER ==
[2022-10-13 14:42] VITALS: BP 107/73
== END 2022-10-13 16:34 | disposition home or self-care (01) ==
LOC: ATC 00:28
DX: E83.42 Hypomagnesemia (principal); I10 Essential (primary) hypertension; E11.42 Type 2 diabetes mellitus with diabetic polyneuropathy; K21.9 Gastro-esophageal reflux disease without esophagitis
CPT/HCPCS: 96365; 96366; J3475

== ENCOUNTER 2022-10-20 03:34 | Day surgery (SDC) | payer OTHER ==
[2022-10-20 10:15] VITALS: BP 103/64
== END 2022-10-20 12:07 | disposition home or self-care (01) ==
LOC: ATC 03:34
DX: E83.42 Hypomagnesemia (principal)
CPT/HCPCS: J3475

== ENCOUNTER 2022-10-24 01:40 | Day surgery (SDC) | payer OTHER ==
[2022-10-24 15:28] VITALS: BP 150/83
[2022-10-24 16:25] LABS: Magnesium, Blood 1.7 mg/dL (1.6-2.4); Potassium, Blood 4.2 mmol/L (3.5-5.5)
== END 2022-10-24 17:28 | disposition home or self-care (01) ==
LOC: ATC 01:40
PROVIDERS: Nurse Practitioner Family
DX: E83.42 Hypomagnesemia (principal); I10 Essential (primary) hypertension; Z88.5 Allergy status to narcotic agent; Z88.0 Allergy status to penicillin; Z88.2 Allergy status to sulfonamides; Z88.1 Allergy status to other antibiotic agents; Z91.030 Bee allergy status; Z91.041 Radiographic dye allergy status; F43.10 Post-traumatic stress disorder, unspecified; F33.3 Major depressive disorder, recurrent, severe with psychotic symptoms
CPT/HCPCS: 83735; 84132; J3475

== ENCOUNTER 2022-10-27 10:54 | Day surgery (SDC) | payer OTHER ==
[2022-10-27 15:45] VITALS: BP 158/95
== END 2022-10-27 17:34 | disposition home or self-care (01) ==
LOC: ATC 10:54
DX: E83.42 Hypomagnesemia (principal); I10 Essential (primary) hypertension; Z88.5 Allergy status to narcotic agent; Z88.0 Allergy status to penicillin; Z88.2 Allergy status to sulfonamides; Z88.8 Allergy status to other drugs, medicaments and biological substances; Z88.6 Allergy status to analgesic agent; Z88.1 Allergy status to other antibiotic agents; Z91.030 Bee allergy status; Z91.041 Radiographic dye allergy status
CPT/HCPCS: 96365; 96366; J3475

== ENCOUNTER 2022-10-30 00:09 | Day surgery (SDC) | payer OTHER ==
[2022-10-30 13:23] VITALS: BP 147/93
--- NOTE | 2022-10-30 14:55 | NUR ---
SPOKE WITH RETAIL WIRELESS SALES CONSULTANT DR MARIANGEL VALENCIA AND PT IS PLANNING TO GO TO THE [facility] FOR CRITICALLY LOW MAGNESIUM. DR INFORMED THAT INFUSION CENTER COULD SEE HER AT 1400 TOMORROW IF IT COULD WAIT THAT LONG, BUT WE WOULD NEED TO GET AN ORDER IN THE AM.
== END 2022-10-30 13:49 | disposition home or self-care (01) ==
LOC: ATC 00:09
DX: E83.42 Hypomagnesemia (principal)
CPT/HCPCS: 83735

== ENCOUNTER 2022-10-30 15:12 | Emergency (ER) | payer OTHER ==
[~2022-10-30] VITALS: Ht 160 cm; Wt 90.7 kg
[2022-10-30 16:30] LABS: BASOPHILS ABSOLUTE AUTO 0.02 K/mm3 (0.00-0.23); BASOPHILS PERCENT AUTO 0 % (0-2); EOSINOPHILS ABSOLUTE AUTO 0.13 K/mm3 (0.00-0.68); EOSINOPHILS PERCENT AUTO 2 % (0-6); Hematocrit 30.1 % (33.0-51.0); IMMATURE GRAN ABSOLUTE AUTO 0.09 K/mm3 (0.00-0.10); IMMATURE GRAN PERCENT AUTO 1 % (0-1); LYMPHOCYTES ABSOLUTE AUTO 3.02 K/mm3 (0.84-5.20); LYMPHOCYTES PERCENT AUTO 37 % (21-46); MONOCYTES ABSOLUTE AUTO 0.54 K/mm3 (0.16-1.47); MONOCYTES PERCENT AUTO 7 % (4-13); Mean Corpuscular HGB 33.9 pg (26.0-34.0); Mean Corpuscular HGB Conc 33.2 g/dL (31.5-36.5); Mean Corpuscular Volume 102 fL (80-100); NEUTROPHILS ABSOLUTE AUTO 4.36 K/mm3 (1.96-9.15); NEUTROPHILS PERCENT AUTO 54 % (41-73); Platelet Count 276 K/mm3 (150-400); RDW Coefficient Variation 13.2 % (11.7-14.2); RDW Standard Deviation 48.9 fL (35.1-46.3); Red Blood Cell Count 2.95 M/mm3 (3.80-5.20); White Blood Cell Count 8.16 K/mm3 (4.00-11.30)
[2022-10-30 16:54] LABS: Albumin, Blood 3.4 g/dL (3.4-5.0); Albumin/Globulin Ratio 0.9 (0.8-1.8); Bilirubin, Total 0.1 mg/dL (0.1-1.0); Bun/Creatinine Ratio 9.7 (12.0-20.0); Calcium, Blood 8.8 mg/dL (8.5-10.1); Creatinine, Blood 1.13 mg/dL (0.40-1.00); Globulin, Blood 3.8 g/dL (2.2-4.0); Magnesium, Blood 1.1 mg/dL (1.6-2.4); Phosphorus, Blood 3.6 mg/dL (2.5-4.9); Potassium, Blood 4.3 mmol/L (3.5-5.5); Total Protein, Blood 7.2 g/dL (6.4-8.2)
[2022-10-30 23:30] VITALS: BP 172/90
== END 2022-10-30 23:56 | disposition home or self-care (01) ==
LOC: ER 15:12
PROVIDERS: Student in an Organized Health Care Education/Training Program
DX: E83.42 Hypomagnesemia (principal); G40.909 Epilepsy, unspecified, not intractable, without status epilepticus; E10.9 Type 1 diabetes mellitus without complications; I11.0 Hypertensive heart disease with heart failure; I50.9 Heart failure, unspecified; K21.9 Gastro-esophageal reflux disease without esophagitis; E78.5 Hyperlipidemia, unspecified; Z86.16 Personal history of COVID-19; Z88.0 Allergy status to penicillin; Z88.8 Allergy status to other drugs, medicaments and biological substances; Z91.041 Radiographic dye allergy status; Z88.1 Allergy status to other antibiotic agents; Z88.2 Allergy status to sulfonamides; Z79.84 Long term (current) use of oral hypoglycemic drugs; Z79.899 Other long term (current) drug therapy
CPT/HCPCS: 80053; 83735; 84100; 85025; J2405; J3475

== ENCOUNTER 2022-10-31 13:33 | Day surgery (SDC) | payer OTHER | END 2022-10-31 23:06 | disposition home or self-care (01) | LOC: ATC 13:33 | DX: E83.42 Hypomagnesemia (principal); I10 Essential (primary) hypertension; E03.9 Hypothyroidism, unspecified; K21.9 Gastro-esophageal reflux disease without esophagitis; G47.33 Obstructive sleep apnea (adult) (pediatric); E78.2 Mixed hyperlipidemia; E11.9 Type 2 diabetes mellitus without complications; Z88.8 Allergy status to other drugs, medicaments and biological substances; Z91.030 Bee allergy status; Z88.1 Allergy status to other antibiotic agents; Z88.2 Allergy status to sulfonamides; Z88.0 Allergy status to penicillin; Z79.899 Other long term (current) drug therapy; Z79.890 Hormone replacement therapy; Z79.84 Long term (current) use of oral hypoglycemic drugs ==

== ENCOUNTER 2022-11-02 03:49 | Day surgery (SDC) | payer OTHER ==
[2022-11-02 13:53] VITALS: BP 138/88
== END 2022-11-02 15:35 | disposition home or self-care (01) ==
LOC: ATC 03:49
DX: E83.42 Hypomagnesemia (principal); I10 Essential (primary) hypertension; E03.9 Hypothyroidism, unspecified; K21.9 Gastro-esophageal reflux disease without esophagitis; G47.33 Obstructive sleep apnea (adult) (pediatric); E78.2 Mixed hyperlipidemia; E11.9 Type 2 diabetes mellitus without complications; Z88.8 Allergy status to other drugs, medicaments and biological substances; Z88.0 Allergy status to penicillin; Z88.1 Allergy status to other antibiotic agents; Z88.2 Allergy status to sulfonamides; Z79.899 Other long term (current) drug therapy
CPT/HCPCS: 96365; 96366; J3475

== ENCOUNTER 2022-11-06 09:22 | Day surgery (SDC) | payer OTHER ==
[2022-11-06 13:40] VITALS: BP 140/68
[2022-11-06 15:08] LABS: Magnesium, Blood 1.6 mg/dL (1.6-2.4)
[2022-11-06 20:12] LABS: Potassium, Blood 4.7 mmol/L (3.5-5.5)
== END 2022-11-06 15:40 | disposition home or self-care (01) ==
LOC: ATC 09:22
PROVIDERS: Nurse Practitioner Family
DX: E83.42 Hypomagnesemia (principal); I10 Essential (primary) hypertension; Z88.5 Allergy status to narcotic agent; Z88.0 Allergy status to penicillin; Z88.2 Allergy status to sulfonamides; Z88.8 Allergy status to other drugs, medicaments and biological substances; Z88.6 Allergy status to analgesic agent; Z88.1 Allergy status to other antibiotic agents; Z91.030 Bee allergy status; Z91.041 Radiographic dye allergy status
CPT/HCPCS: 83735; 84132; 96365; 96366; J3475

== ENCOUNTER 2022-11-08 03:10 | Day surgery (SDC) | payer OTHER ==
[2022-11-08 14:19] VITALS: BP 162/88
[2022-11-08 16:55] LABS: CHOL/HDL RATIO 4.6; Cholesterol 232 mg/dL (50-200); HDL Cholesterol 50 mg/dL (>39); LDL/HDL RATIO Unable to Calculate; Low Density Lipoprotein Chol Unable to Calculate mg/dL (0-110); Triglycerides 414 mg/dL (30-160); Very Low Density Lipoprot Chol Unable to Calculate mg/dL (6-32)
== END 2022-11-08 16:17 | disposition home or self-care (01) ==
LOC: ATC 03:10
PROVIDERS: Registered Nurse
DX: E83.42 Hypomagnesemia (principal); E11.42 Type 2 diabetes mellitus with diabetic polyneuropathy; E78.2 Mixed hyperlipidemia; E03.9 Hypothyroidism, unspecified; I10 Essential (primary) hypertension; K21.9 Gastro-esophageal reflux disease without esophagitis; Z88.5 Allergy status to narcotic agent; Z88.0 Allergy status to penicillin; Z88.2 Allergy status to sulfonamides; Z88.1 Allergy status to other antibiotic agents; Z91.030 Bee allergy status; Z91.041 Radiographic dye allergy status
CPT/HCPCS: 80061; 96365; 96366; J3475

== ENCOUNTER 2022-11-10 02:45 | Day surgery (SDC) | payer OTHER ==
[2022-11-10 14:40] VITALS: BP 178/100
== END 2022-11-10 16:20 | disposition home or self-care (01) ==
LOC: ATC 02:45
DX: E83.42 Hypomagnesemia (principal); Z88.5 Allergy status to narcotic agent; Z88.0 Allergy status to penicillin; Z88.2 Allergy status to sulfonamides; Z88.1 Allergy status to other antibiotic agents; Z91.030 Bee allergy status; Z91.041 Radiographic dye allergy status; K21.9 Gastro-esophageal reflux disease without esophagitis; E03.9 Hypothyroidism, unspecified; F41.9 Anxiety disorder, unspecified
CPT/HCPCS: 96365; 96366; J3475

== ENCOUNTER → 2022-11-10 | Outpatient (CLI) | payer OTHER ==
[2022-11-10 18:54] LABS: Creatinine Urine 40.9 mg/dL (27.00-270.00)
[2022-11-10 20:11] LABS: Urine Magnesium 8.5 mg/dL
== END | disposition home or self-care (01) ==
LOC: LAB SHORT 07:30 → LAB 07:30
PROVIDERS: Hospitalist
DX: E83.42 Hypomagnesemia (principal)
CPT/HCPCS: 81050; 82570; 83735

== ENCOUNTER 2022-11-13 03:14 | Day surgery (SDC) | payer OTHER ==
[2022-11-13 13:44] VITALS: BP 146/106
[2022-11-13 13:57] LABS: Magnesium, Blood 1.5 mg/dL (1.6-2.4); Potassium, Blood 4.4 mmol/L (3.5-5.5)
== END 2022-11-13 16:26 | disposition home or self-care (01) ==
LOC: ATC 03:14
PROVIDERS: Nurse Practitioner Family
DX: E83.42 Hypomagnesemia (principal); I10 Essential (primary) hypertension; E11.42 Type 2 diabetes mellitus with diabetic polyneuropathy; E78.2 Mixed hyperlipidemia; E03.9 Hypothyroidism, unspecified
CPT/HCPCS: 36592; 83735; 84132; 96365; 96366; J3475

== ENCOUNTER 2022-11-15 02:58 | Day surgery (SDC) | payer OTHER ==
[2022-11-15 13:35] VITALS: BP 155/86
== END 2022-11-15 15:24 | disposition home or self-care (01) ==
LOC: ATC 02:58
DX: E83.42 Hypomagnesemia (principal); I10 Essential (primary) hypertension; E11.9 Type 2 diabetes mellitus without complications; Z88.5 Allergy status to narcotic agent; Z88.8 Allergy status to other drugs, medicaments and biological substances; Z88.6 Allergy status to analgesic agent; Z88.1 Allergy status to other antibiotic agents; Z91.030 Bee allergy status; Z91.041 Radiographic dye allergy status
CPT/HCPCS: 96365; 96366; J3475

== ENCOUNTER 2022-12-04 01:13 | Day surgery (SDC) | payer OTHER ==
[2022-12-04 14:01] LABS: Bun/Creatinine Ratio 13.2 (12.0-20.0); Calcium, Blood 9.1 mg/dL (8.5-10.1); Creatinine, Blood 1.06 mg/dL (0.40-1.00); Magnesium, Blood 1.6 mg/dL (1.6-2.4); Potassium, Blood 4.9 mmol/L (3.5-5.5)
[2022-12-04 14:06] VITALS: BP 140/86
== END 2022-12-04 15:54 | disposition home or self-care (01) ==
LOC: ATC 01:13
PROVIDERS: Hospitalist
DX: E83.42 Hypomagnesemia (principal); I10 Essential (primary) hypertension; Z88.8 Allergy status to other drugs, medicaments and biological substances; Z88.1 Allergy status to other antibiotic agents; Z88.5 Allergy status to narcotic agent; Z91.030 Bee allergy status; Z88.0 Allergy status to penicillin; Z88.2 Allergy status to sulfonamides; K21.9 Gastro-esophageal reflux disease without esophagitis; G47.33 Obstructive sleep apnea (adult) (pediatric); E03.9 Hypothyroidism, unspecified; E11.42 Type 2 diabetes mellitus with diabetic polyneuropathy; E78.2 Mixed hyperlipidemia; Z79.84 Long term (current) use of oral hypoglycemic drugs; Z79.899 Other long term (current) drug therapy
CPT/HCPCS: 80048; 83735; 96365; 96366; J3475

== ENCOUNTER 2022-12-06 04:50 | Day surgery (SDC) | payer OTHER ==
[2022-12-06 13:23] VITALS: BP 144/91
== END 2022-12-06 15:09 | disposition home or self-care (01) ==
LOC: ATC 04:50
DX: E83.42 Hypomagnesemia (principal); I10 Essential (primary) hypertension; F41.9 Anxiety disorder, unspecified; K21.9 Gastro-esophageal reflux disease without esophagitis; G47.33 Obstructive sleep apnea (adult) (pediatric); F43.10 Post-traumatic stress disorder, unspecified; G40.909 Epilepsy, unspecified, not intractable, without status epilepticus; G47.00 Insomnia, unspecified; F33.3 Major depressive disorder, recurrent, severe with psychotic symptoms; E03.9 Hypothyroidism, unspecified; E11.65 Type 2 diabetes mellitus with hyperglycemia; E11.42 Type 2 diabetes mellitus with diabetic polyneuropathy; E89.0 Postprocedural hypothyroidism; E78.2 Mixed hyperlipidemia; D50.9 Iron deficiency anemia, unspecified; M1A.9XX0 Chronic gout, unspecified, without tophus (tophi); M19.042 Primary osteoarthritis, left hand; M19.041 Primary osteoarthritis, right hand; G89.29 Other chronic pain; G43.009 Migraine without aura, not intractable, without status migrainosus; Z79.84 Long term (current) use of oral hypoglycemic drugs; Z79.899 Other long term (current) drug therapy; Z79.891 Long term (current) use of opiate analgesic; Z88.5 Allergy status to narcotic agent; Z88.0 Allergy status to penicillin; Z88.1 Allergy status to other antibiotic agents; Z88.2 Allergy status to sulfonamides; Z88.6 Allergy status to analgesic agent; Z88.8 Allergy status to other drugs, medicaments and biological substances; Z91.030 Bee allergy status
CPT/HCPCS: 96365; 96366; J3475

== ENCOUNTER 2022-12-09 00:16 | Day surgery (SDC) | payer OTHER ==
--- NOTE | 2022-12-08 08:19 | NUR ---
PATIENT FORGOT HER APPT TODAY. RESCHEDULED FOR TOMORROW
[2022-12-09 07:13] VITALS: BP 160/94
== END 2022-12-09 11:05 | disposition home or self-care (01) ==
LOC: ATC 00:16
DX: E83.42 Hypomagnesemia (principal); I10 Essential (primary) hypertension
CPT/HCPCS: 96365; 96366; J3475

== ENCOUNTER 2022-12-11 01:01 | Day surgery (SDC) | payer OTHER ==
[2022-12-11 13:16] VITALS: BP 141/85
[2022-12-11 13:41] LABS: Bun/Creatinine Ratio 19.9 (12.0-20.0); Calcium, Blood 8.6 mg/dL (8.5-10.1); Creatinine, Blood 0.95 mg/dL (0.40-1.00); Magnesium, Blood 1.6 mg/dL (1.6-2.4); Potassium, Blood 4.5 mmol/L (3.5-5.5)
== END 2022-12-11 16:02 | disposition home or self-care (01) ==
LOC: ATC 01:01
PROVIDERS: Hospitalist
DX: E83.42 Hypomagnesemia (principal); I10 Essential (primary) hypertension; E11.42 Type 2 diabetes mellitus with diabetic polyneuropathy; E78.2 Mixed hyperlipidemia; E03.9 Hypothyroidism, unspecified; K21.9 Gastro-esophageal reflux disease without esophagitis
CPT/HCPCS: 80048; 83735; 96365; 96366; J3475

== ENCOUNTER 2022-12-13 01:50 | Day surgery (SDC) | payer OTHER ==
[2022-12-13 08:58] VITALS: BP 165/98
== END 2022-12-13 10:45 | disposition home or self-care (01) ==
LOC: ATC 01:50
DX: E83.42 Hypomagnesemia (principal); I10 Essential (primary) hypertension; K21.9 Gastro-esophageal reflux disease without esophagitis; E03.9 Hypothyroidism, unspecified; E11.42 Type 2 diabetes mellitus with diabetic polyneuropathy
CPT/HCPCS: 96365; 96366; J3475

== ENCOUNTER 2022-12-15 03:49 | Day surgery (SDC) | payer OTHER | END 2022-12-15 11:33 | disposition home or self-care (01) | LOC: ATC 03:49 | DX: E83.42 Hypomagnesemia (principal); Z88.5 Allergy status to narcotic agent; Z88.0 Allergy status to penicillin; Z88.2 Allergy status to sulfonamides; Z88.1 Allergy status to other antibiotic agents; Z91.030 Bee allergy status; Z91.041 Radiographic dye allergy status; K21.9 Gastro-esophageal reflux disease without esophagitis; E03.9 Hypothyroidism, unspecified | CPT/HCPCS: 96365; 96366; J3475 ==

== ENCOUNTER 2022-12-18 00:14 | Day surgery (SDC) | payer OTHER ==
[2022-12-18 10:05] VITALS: BP 155/108
[2022-12-18 10:32] LABS: Calcium, Blood 9.2 mg/dL (8.5-10.1); Creatinine, Blood 0.95 mg/dL (0.40-1.00); Magnesium, Blood 1.6 mg/dL (1.6-2.4)
== END 2022-12-18 12:27 | disposition home or self-care (01) ==
LOC: ATC 00:14
PROVIDERS: Hospitalist
DX: E83.42 Hypomagnesemia (principal); Z88.5 Allergy status to narcotic agent; Z88.0 Allergy status to penicillin; Z88.2 Allergy status to sulfonamides; Z88.1 Allergy status to other antibiotic agents; Z91.041 Radiographic dye allergy status; K21.9 Gastro-esophageal reflux disease without esophagitis; E03.9 Hypothyroidism, unspecified; G47.33 Obstructive sleep apnea (adult) (pediatric); G40.909 Epilepsy, unspecified, not intractable, without status epilepticus; E11.42 Type 2 diabetes mellitus with diabetic polyneuropathy
CPT/HCPCS: 80048; 83735; J3475

== ENCOUNTER 2022-12-22 05:01 | Day surgery (SDC) | payer OTHER ==
[2022-12-22 07:50] VITALS: BP 114/71
== END 2022-12-22 12:00 | disposition home or self-care (01) ==
LOC: ATC 05:01
DX: E83.42 Hypomagnesemia (principal); I10 Essential (primary) hypertension
CPT/HCPCS: 96365; 96366; J3475

== ENCOUNTER 2022-12-27 01:35 | Day surgery (SDC) | payer OTHER ==
[2022-12-27 09:34] VITALS: BP 132/82
== END 2022-12-27 11:22 | disposition home or self-care (01) ==
LOC: ATC 01:35
DX: E83.42 Hypomagnesemia (principal); I10 Essential (primary) hypertension; K21.9 Gastro-esophageal reflux disease without esophagitis; E03.9 Hypothyroidism, unspecified; G47.33 Obstructive sleep apnea (adult) (pediatric); E78.2 Mixed hyperlipidemia; E11.42 Type 2 diabetes mellitus with diabetic polyneuropathy; Z91.030 Bee allergy status; Z91.041 Radiographic dye allergy status; Z88.1 Allergy status to other antibiotic agents; Z88.5 Allergy status to narcotic agent; Z88.8 Allergy status to other drugs, medicaments and biological substances; Z88.0 Allergy status to penicillin; Z88.2 Allergy status to sulfonamides; Z88.6 Allergy status to analgesic agent; Z79.890 Hormone replacement therapy; Z79.84 Long term (current) use of oral hypoglycemic drugs; Z79.899 Other long term (current) drug therapy
CPT/HCPCS: 96365; 96366; J3475

== ENCOUNTER 2022-12-29 03:24 | Day surgery (SDC) | payer OTHER ==
[2022-12-29 07:58] VITALS: BP 149/95
[2022-12-29 11:31] VITALS: BP 153/82
== END 2022-12-29 11:16 | disposition home or self-care (01) ==
LOC: ATC 03:24
DX: E83.42 Hypomagnesemia (principal); I10 Essential (primary) hypertension; K21.9 Gastro-esophageal reflux disease without esophagitis; E03.9 Hypothyroidism, unspecified; G47.33 Obstructive sleep apnea (adult) (pediatric); F43.10 Post-traumatic stress disorder, unspecified; G40.909 Epilepsy, unspecified, not intractable, without status epilepticus; F33.3 Major depressive disorder, recurrent, severe with psychotic symptoms; E89.0 Postprocedural hypothyroidism; E11.42 Type 2 diabetes mellitus with diabetic polyneuropathy; E78.2 Mixed hyperlipidemia; Z79.84 Long term (current) use of oral hypoglycemic drugs; Z91.030 Bee allergy status; Z88.1 Allergy status to other antibiotic agents; Z88.8 Allergy status to other drugs, medicaments and biological substances; Z88.2 Allergy status to sulfonamides; Z88.0 Allergy status to penicillin
CPT/HCPCS: 96365; 96366; J3475

== ENCOUNTER 2023-01-03 01:57 | Day surgery (SDC) | payer OTHER ==
[2023-01-03 09:30] VITALS: BP 115/67
== END 2023-01-03 11:17 | disposition home or self-care (01) ==
LOC: ATC 01:57
DX: E83.42 Hypomagnesemia (principal); I10 Essential (primary) hypertension; K21.9 Gastro-esophageal reflux disease without esophagitis; E03.9 Hypothyroidism, unspecified; G47.33 Obstructive sleep apnea (adult) (pediatric); E11.42 Type 2 diabetes mellitus with diabetic polyneuropathy; Z91.030 Bee allergy status; Z88.1 Allergy status to other antibiotic agents; Z88.5 Allergy status to narcotic agent; Z88.0 Allergy status to penicillin; Z88.2 Allergy status to sulfonamides; Z88.6 Allergy status to analgesic agent; E78.2 Mixed hyperlipidemia; Z79.84 Long term (current) use of oral hypoglycemic drugs; Z79.890 Hormone replacement therapy; Z79.899 Other long term (current) drug therapy
CPT/HCPCS: 96365; 96366; J3475

== ENCOUNTER 2023-01-05 01:11 | Day surgery (SDC) | payer OTHER ==
[2023-01-05 07:33] VITALS: BP 169/94
== END 2023-01-05 11:13 | disposition home or self-care (01) ==
LOC: ATC 01:11
DX: E83.42 Hypomagnesemia (principal); I10 Essential (primary) hypertension; Z88.5 Allergy status to narcotic agent; Z88.2 Allergy status to sulfonamides; Z88.1 Allergy status to other antibiotic agents; Z91.030 Bee allergy status; Z91.041 Radiographic dye allergy status
CPT/HCPCS: 96360; 96361; J3475

== ENCOUNTER 2023-01-08 02:16 | Day surgery (SDC) | payer OTHER ==
[2023-01-08 07:30] VITALS: BP 141/103
[2023-01-08 08:00] LABS: Bun/Creatinine Ratio 19.6 (12.0-20.0); Calcium, Blood 8.6 mg/dL (8.5-10.1); Creatinine, Blood 0.97 mg/dL (0.40-1.00); Magnesium, Blood 1.5 mg/dL (1.6-2.4); Potassium, Blood 4.5 mmol/L (3.5-5.5)
== END 2023-01-08 10:15 | disposition home or self-care (01) ==
LOC: ATC 02:16
PROVIDERS: Hospitalist
DX: E83.42 Hypomagnesemia (principal); I10 Essential (primary) hypertension
CPT/HCPCS: 80048; 83735; 96365; 96366; J3475

== ENCOUNTER 2023-01-10 02:36 | Day surgery (SDC) | payer OTHER | END 2023-01-10 11:10 | disposition home or self-care (01) | LOC: ATC 02:36 | DX: E83.42 Hypomagnesemia (principal); I10 Essential (primary) hypertension; K21.9 Gastro-esophageal reflux disease without esophagitis; G47.33 Obstructive sleep apnea (adult) (pediatric); F43.10 Post-traumatic stress disorder, unspecified; F32.3 Major depressive disorder, single episode, severe with psychotic features; E89.0 Postprocedural hypothyroidism; E11.42 Type 2 diabetes mellitus with diabetic polyneuropathy; Z20.822 Contact with and (suspected) exposure to COVID-19; Z79.84 Long term (current) use of oral hypoglycemic drugs; Z91.030 Bee allergy status; Z91.041 Radiographic dye allergy status; Z88.1 Allergy status to other antibiotic agents; Z88.8 Allergy status to other drugs, medicaments and biological substances; Z88.5 Allergy status to narcotic agent; Z88.2 Allergy status to sulfonamides; Z88.0 Allergy status to penicillin ==

== ENCOUNTER 2023-01-12 01:04 | Day surgery (SDC) | payer OTHER ==
[2023-01-12 07:27] VITALS: BP 166/98
== END 2023-01-12 10:35 | disposition home or self-care (01) ==
LOC: ATC 01:04
DX: E83.42 Hypomagnesemia (principal); I10 Essential (primary) hypertension; F41.9 Anxiety disorder, unspecified; K21.9 Gastro-esophageal reflux disease without esophagitis; E03.9 Hypothyroidism, unspecified; G47.33 Obstructive sleep apnea (adult) (pediatric); F43.10 Post-traumatic stress disorder, unspecified; E11.42 Type 2 diabetes mellitus with diabetic polyneuropathy; E78.2 Mixed hyperlipidemia; F33.3 Major depressive disorder, recurrent, severe with psychotic symptoms; Z91.030 Bee allergy status; Z88.1 Allergy status to other antibiotic agents; Z88.2 Allergy status to sulfonamides; Z88.0 Allergy status to penicillin
CPT/HCPCS: 96365; 96366; J3475

== ENCOUNTER 2023-01-15 02:27 | Day surgery (SDC) | payer OTHER ==
[2023-01-15 09:25] VITALS: BP 128/88
[2023-01-15 09:47] LABS: Bun/Creatinine Ratio 20.7 (12.0-20.0); Calcium, Blood 8.7 mg/dL (8.5-10.1); Creatinine, Blood 0.92 mg/dL (0.40-1.00); Magnesium, Blood 1.4 mg/dL (1.6-2.4)
== END 2023-01-15 12:01 | disposition home or self-care (01) ==
LOC: ATC 02:27
PROVIDERS: Hospitalist
DX: E83.42 Hypomagnesemia (principal); Z88.5 Allergy status to narcotic agent; Z88.0 Allergy status to penicillin; Z88.2 Allergy status to sulfonamides; Z91.030 Bee allergy status; Z91.041 Radiographic dye allergy status; I10 Essential (primary) hypertension
CPT/HCPCS: 80048; 83735; 96365; 96366; J3475

== ENCOUNTER 2023-01-17 05:46 | Day surgery (SDC) | payer OTHER ==
[2023-01-17 09:11] VITALS: BP 133/84
== END 2023-01-17 11:02 | disposition home or self-care (01) ==
LOC: ATC 05:46
DX: E83.42 Hypomagnesemia (principal); Z88.5 Allergy status to narcotic agent; Z88.1 Allergy status to other antibiotic agents; Z91.030 Bee allergy status; Z91.041 Radiographic dye allergy status; I10 Essential (primary) hypertension; K21.9 Gastro-esophageal reflux disease without esophagitis
CPT/HCPCS: 96365; 96366; J3475

== ENCOUNTER 2023-01-19 02:21 | Day surgery (SDC) | payer OTHER ==
[2023-01-19 07:32] VITALS: BP 141/107
== END 2023-01-19 10:53 | disposition home or self-care (01) ==
LOC: ATC 02:21
DX: E83.42 Hypomagnesemia (principal); I10 Essential (primary) hypertension; Z88.5 Allergy status to narcotic agent; Z88.2 Allergy status to sulfonamides; Z88.1 Allergy status to other antibiotic agents; Z91.030 Bee allergy status
CPT/HCPCS: 96365; 96366; J3475

== ENCOUNTER 2023-01-22 00:34 | Day surgery (SDC) | payer OTHER ==
[2023-01-22 09:02] VITALS: BP 146/73
[2023-01-22 09:35] LABS: Calcium, Blood 8.7 mg/dL (8.5-10.1); Magnesium, Blood 1.3 mg/dL (1.6-2.4); Potassium, Blood 4.4 mmol/L (3.5-5.5)
== END 2023-01-22 12:00 | disposition home or self-care (01) ==
LOC: ATC 00:34
PROVIDERS: Hospitalist
DX: E83.42 Hypomagnesemia (principal); I10 Essential (primary) hypertension; F33.3 Major depressive disorder, recurrent, severe with psychotic symptoms; F43.10 Post-traumatic stress disorder, unspecified; E11.42 Type 2 diabetes mellitus with diabetic polyneuropathy; E78.2 Mixed hyperlipidemia; E03.9 Hypothyroidism, unspecified; G89.29 Other chronic pain; G43.909 Migraine, unspecified, not intractable, without status migrainosus; M19.042 Primary osteoarthritis, left hand; M19.041 Primary osteoarthritis, right hand; Z86.16 Personal history of COVID-19; Z79.84 Long term (current) use of oral hypoglycemic drugs; Z91.030 Bee allergy status; Z88.2 Allergy status to sulfonamides; Z88.0 Allergy status to penicillin
CPT/HCPCS: 80048; 83735; 96365; 96366; J3475

== ENCOUNTER 2023-01-24 02:33 | Day surgery (SDC) | payer OTHER ==
[2023-01-24 09:10] VITALS: BP 144/87
== END 2023-01-24 11:02 | disposition home or self-care (01) ==
LOC: ATC 02:33
DX: E83.42 Hypomagnesemia (principal); I10 Essential (primary) hypertension; Z88.5 Allergy status to narcotic agent; Z88.0 Allergy status to penicillin; Z88.2 Allergy status to sulfonamides; Z88.1 Allergy status to other antibiotic agents; Z91.030 Bee allergy status; Z91.041 Radiographic dye allergy status
CPT/HCPCS: 96365; 96366; J3475

== ENCOUNTER 2023-01-26 00:19 | Day surgery (SDC) | payer OTHER ==
[2023-01-26 07:43] VITALS: BP 138/89
== END 2023-01-26 11:00 | disposition home or self-care (01) ==
LOC: ATC 00:19
DX: E83.42 Hypomagnesemia (principal); I10 Essential (primary) hypertension; Z88.5 Allergy status to narcotic agent; Z88.0 Allergy status to penicillin; Z88.2 Allergy status to sulfonamides; Z88.1 Allergy status to other antibiotic agents; Z91.030 Bee allergy status; Z91.041 Radiographic dye allergy status
CPT/HCPCS: 96365; 96366; J3475

== ENCOUNTER 2023-01-29 01:21 | Day surgery (SDC) | payer OTHER ==
[2023-01-29 07:35] VITALS: BP 132/79
[2023-01-29 08:06] LABS: Bun/Creatinine Ratio 22.4 (12.0-20.0); Creatinine, Blood 0.94 mg/dL (0.40-1.00); Magnesium, Blood 1.5 mg/dL (1.6-2.4); Potassium, Blood 4.5 mmol/L (3.5-5.5)
== END 2023-01-29 10:04 | disposition home or self-care (01) ==
LOC: ATC 01:21
PROVIDERS: Hospitalist
DX: E83.42 Hypomagnesemia (principal); I10 Essential (primary) hypertension; K21.9 Gastro-esophageal reflux disease without esophagitis; E03.9 Hypothyroidism, unspecified; F43.10 Post-traumatic stress disorder, unspecified; E11.42 Type 2 diabetes mellitus with diabetic polyneuropathy; F33.3 Major depressive disorder, recurrent, severe with psychotic symptoms; E78.2 Mixed hyperlipidemia; Z79.84 Long term (current) use of oral hypoglycemic drugs; Z88.0 Allergy status to penicillin; Z88.1 Allergy status to other antibiotic agents; Z88.2 Allergy status to sulfonamides; Z88.5 Allergy status to narcotic agent; Z88.8 Allergy status to other drugs, medicaments and biological substances; Z91.030 Bee allergy status
CPT/HCPCS: 80048; 83735; 96365; 96366; J3475

== ENCOUNTER → 2023-01-29 | Outpatient (CLI) | payer OTHER | END | disposition home or self-care (01) | LOC: LAB 16:36 → LAB SHORT 16:36 | DX: H66.92 Otitis media, unspecified, left ear (principal) | CPT/HCPCS: 87086 ==

== ENCOUNTER 2023-01-31 01:22 | Day surgery (SDC) | payer OTHER ==
[2023-01-31 09:16] VITALS: BP 127/83
== END 2023-01-31 11:10 | disposition home or self-care (01) ==
LOC: ATC 01:22
DX: E83.42 Hypomagnesemia (principal); I10 Essential (primary) hypertension; K21.9 Gastro-esophageal reflux disease without esophagitis; E03.9 Hypothyroidism, unspecified; G47.33 Obstructive sleep apnea (adult) (pediatric); F43.10 Post-traumatic stress disorder, unspecified; F33.3 Major depressive disorder, recurrent, severe with psychotic symptoms; G40.909 Epilepsy, unspecified, not intractable, without status epilepticus; Z79.84 Long term (current) use of oral hypoglycemic drugs; Z91.030 Bee allergy status; Z91.041 Radiographic dye allergy status; Z88.1 Allergy status to other antibiotic agents; Z88.2 Allergy status to sulfonamides
CPT/HCPCS: 96365; 96366; J3475

== ENCOUNTER 2023-02-02 00:47 | Day surgery (SDC) | payer OTHER ==
[2023-02-02 07:38] VITALS: BP 113/70
== END 2023-02-02 11:20 | disposition home or self-care (01) ==
LOC: ATC 00:47
DX: E83.42 Hypomagnesemia (principal); I10 Essential (primary) hypertension; Z88.5 Allergy status to narcotic agent; Z88.0 Allergy status to penicillin; Z88.2 Allergy status to sulfonamides; Z88.1 Allergy status to other antibiotic agents; Z91.030 Bee allergy status; E11.42 Type 2 diabetes mellitus with diabetic polyneuropathy; K21.9 Gastro-esophageal reflux disease without esophagitis; E03.9 Hypothyroidism, unspecified
CPT/HCPCS: 96365; 96366; J3475

== ENCOUNTER 2023-02-05 03:22 | Day surgery (SDC) | payer OTHER ==
[2023-02-05 09:26] LABS: Calcium, Blood 9.2 mg/dL (8.5-10.1); Creatinine, Blood 1.09 mg/dL (0.40-1.00); Magnesium, Blood 1.5 mg/dL (1.6-2.4); Potassium, Blood 4.3 mmol/L (3.5-5.5)
[2023-02-05 09:30] VITALS: BP 103/66
== END 2023-02-05 11:50 | disposition home or self-care (01) ==
LOC: ATC 03:22
PROVIDERS: Hospitalist
DX: E83.42 Hypomagnesemia (principal); I10 Essential (primary) hypertension; K21.9 Gastro-esophageal reflux disease without esophagitis; E03.9 Hypothyroidism, unspecified; G47.33 Obstructive sleep apnea (adult) (pediatric); E78.2 Mixed hyperlipidemia; E11.9 Type 2 diabetes mellitus without complications; Z86.16 Personal history of COVID-19; Z88.1 Allergy status to other antibiotic agents; Z88.5 Allergy status to narcotic agent; Z91.041 Radiographic dye allergy status; Z88.0 Allergy status to penicillin; Z88.2 Allergy status to sulfonamides; Z88.6 Allergy status to analgesic agent; Z79.890 Hormone replacement therapy; Z79.84 Long term (current) use of oral hypoglycemic drugs; Z79.899 Other long term (current) drug therapy
CPT/HCPCS: 80048; 83735; 96365; 96366; J3475

== ENCOUNTER 2023-02-07 00:43 | Day surgery (SDC) | payer OTHER ==
[2023-02-07 08:14] VITALS: BP 169/97
== END 2023-02-07 10:07 | disposition home or self-care (01) ==
LOC: ATC 00:43
DX: E83.42 Hypomagnesemia (principal); I10 Essential (primary) hypertension; K21.9 Gastro-esophageal reflux disease without esophagitis; Z88.5 Allergy status to narcotic agent; Z88.0 Allergy status to penicillin; Z88.2 Allergy status to sulfonamides; Z88.1 Allergy status to other antibiotic agents; Z91.030 Bee allergy status
CPT/HCPCS: 96365; 96366; J3475

== ENCOUNTER 2023-02-09 01:55 | Day surgery (SDC) | payer OTHER ==
[2023-02-09 08:22] VITALS: BP 159/106
== END 2023-02-09 10:52 | disposition home or self-care (01) ==
LOC: ATC 01:55
DX: E83.42 Hypomagnesemia (principal); I10 Essential (primary) hypertension; K21.9 Gastro-esophageal reflux disease without esophagitis; E03.9 Hypothyroidism, unspecified; E11.42 Type 2 diabetes mellitus with diabetic polyneuropathy; G47.33 Obstructive sleep apnea (adult) (pediatric); E78.2 Mixed hyperlipidemia; Z86.16 Personal history of COVID-19; Z88.1 Allergy status to other antibiotic agents; Z88.8 Allergy status to other drugs, medicaments and biological substances; Z88.5 Allergy status to narcotic agent; Z88.2 Allergy status to sulfonamides; Z88.0 Allergy status to penicillin; Z88.6 Allergy status to analgesic agent; Z91.041 Radiographic dye allergy status; Z79.84 Long term (current) use of oral hypoglycemic drugs; Z79.890 Hormone replacement therapy; Z79.899 Other long term (current) drug therapy
CPT/HCPCS: 96365; 96366; J3475

== ENCOUNTER 2023-02-12 00:59 | Day surgery (SDC) | payer OTHER ==
[2023-02-12 07:52] VITALS: BP 145/79
[2023-02-12 08:19] LABS: Bun/Creatinine Ratio 18.4 (12.0-20.0); Calcium, Blood 8.4 mg/dL (8.5-10.1); Creatinine, Blood 1.14 mg/dL (0.40-1.00); Magnesium, Blood 1.3 mg/dL (1.6-2.4); Potassium, Blood 4.3 mmol/L (3.5-5.5)
[2023-02-23] MEDS ORDERED: AMILORIDE HCL5 M7 PO (07:43)
== END 2023-02-12 10:15 | disposition home or self-care (01) ==
LOC: ATC 00:59
PROVIDERS: Hospitalist
DX: E83.42 Hypomagnesemia (principal); I10 Essential (primary) hypertension; K21.9 Gastro-esophageal reflux disease without esophagitis; E03.9 Hypothyroidism, unspecified; G47.33 Obstructive sleep apnea (adult) (pediatric); E78.2 Mixed hyperlipidemia; E11.9 Type 2 diabetes mellitus without complications; Z88.1 Allergy status to other antibiotic agents; Z88.5 Allergy status to narcotic agent; Z88.0 Allergy status to penicillin; Z88.2 Allergy status to sulfonamides; Z91.041 Radiographic dye allergy status; Z79.890 Hormone replacement therapy; Z79.84 Long term (current) use of oral hypoglycemic drugs; Z79.899 Other long term (current) drug therapy
CPT/HCPCS: 80048; 83735; 96365; 96366; J3475

== ENCOUNTER 2023-02-14 04:30 | Day surgery (SDC) | payer OTHER ==
[2023-02-14 08:30] VITALS: BP 152/90
[2023-02-23] MEDS ORDERED: AMILORIDE HCL5 M7 PO (07:43)
== END 2023-02-14 10:07 | disposition home or self-care (01) ==
LOC: ATC 04:30
DX: E83.42 Hypomagnesemia (principal); I10 Essential (primary) hypertension; K21.9 Gastro-esophageal reflux disease without esophagitis; E03.9 Hypothyroidism, unspecified; G47.33 Obstructive sleep apnea (adult) (pediatric); E11.42 Type 2 diabetes mellitus with diabetic polyneuropathy; Z88.1 Allergy status to other antibiotic agents; Z88.5 Allergy status to narcotic agent; Z91.030 Bee allergy status; Z88.8 Allergy status to other drugs, medicaments and biological substances; Z88.2 Allergy status to sulfonamides; Z88.0 Allergy status to penicillin; Z88.6 Allergy status to analgesic agent; E78.2 Mixed hyperlipidemia
CPT/HCPCS: 96365; 96366; J3475

== ENCOUNTER 2023-02-16 00:24 | Day surgery (SDC) | payer OTHER ==
[2023-02-16 07:40] VITALS: BP 146/95
[2023-02-23] MEDS ORDERED: AMILORIDE HCL5 M7 PO (07:43)
== END 2023-02-16 11:30 | disposition home or self-care (01) ==
LOC: ATC 00:24
DX: E83.42 Hypomagnesemia (principal); I10 Essential (primary) hypertension; K21.9 Gastro-esophageal reflux disease without esophagitis; E03.9 Hypothyroidism, unspecified; F43.10 Post-traumatic stress disorder, unspecified; E11.42 Type 2 diabetes mellitus with diabetic polyneuropathy; Z88.2 Allergy status to sulfonamides; Z88.0 Allergy status to penicillin
CPT/HCPCS: 96365; 96366; J3475

== ENCOUNTER 2023-03-02 04:39 | Day surgery (SDC) | payer OTHER ==
[~2023-03-02 04:39] MED LIST changes: +AMILORIDE HCL5 M7 PO
[2023-03-02 07:36] VITALS: BP 101/68
[2023-03-02] MEDS ORDERED: Zithromax Tri-500 MG PO (07:53)
== END 2023-03-02 11:30 | disposition home or self-care (01) ==
LOC: ATC 04:39
DX: E83.42 Hypomagnesemia (principal); I10 Essential (primary) hypertension; K21.9 Gastro-esophageal reflux disease without esophagitis; E03.9 Hypothyroidism, unspecified; Z88.6 Allergy status to analgesic agent; Z88.1 Allergy status to other antibiotic agents; Z88.5 Allergy status to narcotic agent; Z88.8 Allergy status to other drugs, medicaments and biological substances; Z88.2 Allergy status to sulfonamides; Z88.0 Allergy status to penicillin
CPT/HCPCS: 96365; 96366; J3475

== ENCOUNTER 2023-03-05 08:56 | Emergency (ER) | payer OTHER ==
[~2023-03-05] VITALS: Ht 157.5 cm; Wt 99.8 kg
[~2023-03-05 08:56] MED LIST changes: +Zithromax Tri-500 MG PO
[2023-03-05 10:11] LABS: Bun/Creatinine Ratio 25.5 (12.0-20.0); Calcium, Blood 9.4 mg/dL (8.5-10.1); Creatinine, Blood 0.94 mg/dL (0.40-1.00); Potassium, Blood 4.3 mmol/L (3.5-5.5)
[2023-03-05 13:31] VITALS: BP 159/97
== END 2023-03-05 13:34 | disposition home or self-care (01) ==
LOC: ER 08:56
PROVIDERS: Emergency Medicine
DX: U07.1 COVID-19 (principal); E83.42 Hypomagnesemia; Z88.0 Allergy status to penicillin; Z88.8 Allergy status to other drugs, medicaments and biological substances; Z88.1 Allergy status to other antibiotic agents; Z88.2 Allergy status to sulfonamides; Z79.899 Other long term (current) drug therapy; Z79.84 Long term (current) use of oral hypoglycemic drugs; E10.9 Type 1 diabetes mellitus without complications; I10 Essential (primary) hypertension; G43.909 Migraine, unspecified, not intractable, without status migrainosus; E03.9 Hypothyroidism, unspecified; E78.5 Hyperlipidemia, unspecified; K21.9 Gastro-esophageal reflux disease without esophagitis; F43.10 Post-traumatic stress disorder, unspecified
CPT/HCPCS: 80048; 83735; 96365; 96366; 99283-25; J3475

== ENCOUNTER 2023-03-07 01:50 | Day surgery (SDC) | payer OTHER ==
[2023-03-07 09:01] VITALS: BP 112/77
== END 2023-03-07 10:49 | disposition home or self-care (01) ==
LOC: ATC 01:50
DX: E83.42 Hypomagnesemia (principal); I10 Essential (primary) hypertension; Z88.5 Allergy status to narcotic agent; Z91.030 Bee allergy status; Z91.041 Radiographic dye allergy status; Z88.2 Allergy status to sulfonamides; Z88.0 Allergy status to penicillin; Z88.1 Allergy status to other antibiotic agents; K21.9 Gastro-esophageal reflux disease without esophagitis; E03.9 Hypothyroidism, unspecified; F41.9 Anxiety disorder, unspecified; G40.909 Epilepsy, unspecified, not intractable, without status epilepticus
CPT/HCPCS: 96365; 96366; J3475

== ENCOUNTER 2023-03-09 00:25 | Day surgery (SDC) | payer OTHER ==
[2023-03-09 07:38] VITALS: BP 129/87
--- NOTE | 2023-03-09 11:29 | NUR ---
PT REMAINS IN ENHANCED ISOLATION PRECAUTIONS FOR COVID.
== END 2023-03-09 11:26 | disposition home or self-care (01) ==
LOC: ATC 00:25
DX: E83.42 Hypomagnesemia (principal); I10 Essential (primary) hypertension; Z88.5 Allergy status to narcotic agent; Z88.0 Allergy status to penicillin; Z88.1 Allergy status to other antibiotic agents; Z91.030 Bee allergy status; Z88.2 Allergy status to sulfonamides; F41.9 Anxiety disorder, unspecified; K21.9 Gastro-esophageal reflux disease without esophagitis; G40.909 Epilepsy, unspecified, not intractable, without status epilepticus
CPT/HCPCS: 96365; 96366; J3475

== ENCOUNTER 2023-03-12 00:53 | Day surgery (SDC) | payer OTHER ==
[2023-03-12 09:51] LABS: Bun/Creatinine Ratio 26.7 (12.0-20.0); Creatinine, Blood 1.05 mg/dL (0.40-1.00); Magnesium, Blood 1.9 mg/dL (1.6-2.4); Potassium, Blood 4.7 mmol/L (3.5-5.5)
== END 2023-03-12 10:09 | disposition home or self-care (01) ==
LOC: ATC 00:53
PROVIDERS: Hospitalist
DX: E83.42 Hypomagnesemia (principal); I10 Essential (primary) hypertension; Z91.030 Bee allergy status; Z88.2 Allergy status to sulfonamides; Z88.0 Allergy status to penicillin
CPT/HCPCS: 80048; 83735; 96365; J3475

== ENCOUNTER 2023-03-14 01:30 | Day surgery (SDC) | payer OTHER ==
[2023-03-14 08:49] VITALS: BP 143/91
== END 2023-03-14 11:53 | disposition home or self-care (01) ==
LOC: ATC 01:30
DX: E83.42 Hypomagnesemia (principal); I10 Essential (primary) hypertension
CPT/HCPCS: 83735; 96365; 96366; J3475

== ENCOUNTER 2023-03-16 03:05 | Day surgery (SDC) | payer OTHER ==
[2023-03-16 07:40] VITALS: BP 135/95
[2023-03-16] MEDS ORDERED: IPRAT-ALBUT 0.5-3 ML (07:43)
[2023-03-16] MEDS ORDERED: Ventolin/Prove6.7 GM INH (07:44)
== END 2023-03-16 11:29 | disposition home or self-care (01) ==
LOC: ATC 03:05
DX: E83.42 Hypomagnesemia (principal); I10 Essential (primary) hypertension; Z88.5 Allergy status to narcotic agent; Z88.2 Allergy status to sulfonamides; Z91.030 Bee allergy status; Z91.041 Radiographic dye allergy status; Z88.0 Allergy status to penicillin; K21.9 Gastro-esophageal reflux disease without esophagitis; E03.9 Hypothyroidism, unspecified; G40.909 Epilepsy, unspecified, not intractable, without status epilepticus
CPT/HCPCS: 96365; 96366; J3475

== ENCOUNTER 2023-03-19 02:08 | Day surgery (SDC) | payer OTHER ==
[~2023-03-19 02:08] MED LIST changes: +IPRAT-ALBUT 0.5-3 ML
[2023-03-19 08:52] VITALS: BP 152/91
[2023-03-19 10:03] LABS: Bun/Creatinine Ratio 21.7 (12.0-20.0); Calcium, Blood 9.2 mg/dL (8.5-10.1); Creatinine, Blood 0.97 mg/dL (0.40-1.00); Magnesium, Blood 1.7 mg/dL (1.6-2.4); Potassium, Blood 4.4 mmol/L (3.5-5.5)
== END 2023-03-19 12:09 | disposition home or self-care (01) ==
LOC: ATC 02:08
PROVIDERS: Hospitalist
DX: E83.42 Hypomagnesemia (principal); I10 Essential (primary) hypertension; F41.9 Anxiety disorder, unspecified; K21.9 Gastro-esophageal reflux disease without esophagitis; G40.909 Epilepsy, unspecified, not intractable, without status epilepticus; Z88.5 Allergy status to narcotic agent; Z88.0 Allergy status to penicillin; Z88.1 Allergy status to other antibiotic agents; Z91.030 Bee allergy status; Z91.041 Radiographic dye allergy status; Z88.2 Allergy status to sulfonamides
CPT/HCPCS: 80048; 83735; 96365; 96366; J3475

== ENCOUNTER 2023-03-21 05:25 | Day surgery (SDC) | payer OTHER ==
[2023-03-21 08:56] VITALS: BP 108/85
== END 2023-03-21 10:48 | disposition home or self-care (01) ==
LOC: ATC 05:25
DX: E83.42 Hypomagnesemia (principal); I10 Essential (primary) hypertension; E11.42 Type 2 diabetes mellitus with diabetic polyneuropathy; F43.10 Post-traumatic stress disorder, unspecified; F33.3 Major depressive disorder, recurrent, severe with psychotic symptoms; Z88.2 Allergy status to sulfonamides; Z88.0 Allergy status to penicillin
CPT/HCPCS: 96365; 96366; J3475

== ENCOUNTER 2023-03-23 05:04 | Day surgery (SDC) | payer OTHER ==
[2023-03-23] MEDS ORDERED: CEFD300 PO (07:48)
[2023-03-23 07:50] VITALS: BP 147/98
== END 2023-03-23 11:22 | disposition home or self-care (01) ==
LOC: ATC 05:04
DX: E83.42 Hypomagnesemia (principal); I10 Essential (primary) hypertension; Z88.5 Allergy status to narcotic agent; Z88.0 Allergy status to penicillin; Z88.2 Allergy status to sulfonamides; Z88.1 Allergy status to other antibiotic agents; Z91.030 Bee allergy status; Z91.041 Radiographic dye allergy status; K21.9 Gastro-esophageal reflux disease without esophagitis; G47.00 Insomnia, unspecified; G40.909 Epilepsy, unspecified, not intractable, without status epilepticus
CPT/HCPCS: 96365; 96366; J3475

== ENCOUNTER 2023-03-26 03:11 | Day surgery (SDC) | payer OTHER ==
[~2023-03-26 03:11] MED LIST changes: +CEFD300 PO
[2023-03-26 08:07] VITALS: BP 127/87
[2023-03-26 08:41] LABS: Bun/Creatinine Ratio 31.6 (12.0-20.0); Calcium, Blood 9.4 mg/dL (8.5-10.1); Creatinine, Blood 0.92 mg/dL (0.40-1.00); Magnesium, Blood 1.7 mg/dL (1.6-2.4); Potassium, Blood 4.5 mmol/L (3.5-5.5)
== END 2023-03-26 11:05 | disposition home or self-care (01) ==
LOC: ATC 03:11
PROVIDERS: Hospitalist
DX: E83.42 Hypomagnesemia (principal); I10 Essential (primary) hypertension; Z88.5 Allergy status to narcotic agent; Z88.0 Allergy status to penicillin; Z88.2 Allergy status to sulfonamides; Z91.030 Bee allergy status; Z91.041 Radiographic dye allergy status; K21.9 Gastro-esophageal reflux disease without esophagitis; G47.33 Obstructive sleep apnea (adult) (pediatric); G40.909 Epilepsy, unspecified, not intractable, without status epilepticus
CPT/HCPCS: 80048; 83735; 96365; 96366; J3475

== ENCOUNTER 2023-03-28 02:26 | Day surgery (SDC) | payer OTHER ==
[2023-03-28 08:53] VITALS: BP 171/100
== END 2023-03-28 10:42 | disposition home or self-care (01) ==
LOC: ATC 02:26
DX: E83.42 Hypomagnesemia (principal); I10 Essential (primary) hypertension
CPT/HCPCS: 96365; 96366; J3475

== ENCOUNTER 2023-03-30 03:02 | Day surgery (SDC) | payer OTHER ==
[2023-03-30] MEDS ORDERED: DILTIAZEM 24HR300 M2 PO (07:39)
[2023-03-30 07:40] VITALS: BP 158/83
== END 2023-03-30 23:43 | disposition home or self-care (01) ==
LOC: ATC 03:02
DX: E83.42 Hypomagnesemia (principal); I10 Essential (primary) hypertension
CPT/HCPCS: 96365; 96366; J3475

== ENCOUNTER 2023-04-02 02:11 | Day surgery (SDC) | payer OTHER ==
[~2023-04-02 02:11] MED LIST changes: +DILTIAZEM 24HR300 M2 PO
[2023-04-02 08:28] VITALS: BP 160/86
[2023-04-02 08:37] LABS: Bun/Creatinine Ratio 14.9 (12.0-20.0); Calcium, Blood 9.3 mg/dL (8.5-10.1); Creatinine, Blood 1.21 mg/dL (0.40-1.00); Magnesium, Blood 2.1 mg/dL (1.6-2.4); Potassium, Blood 4.3 mmol/L (3.5-5.5)
--- NOTE | 2023-04-02 08:54 | NUR ---
NO MAGNESIUM REQUIRED TODAY MG LAB IS 2.1. PT TO RETURN ON WED FOR ANOTHER LAB DRAW.
== END 2023-04-02 08:47 | disposition home or self-care (01) ==
LOC: ATC 02:11
PROVIDERS: Hospitalist
DX: E83.42 Hypomagnesemia (principal); I10 Essential (primary) hypertension; K21.9 Gastro-esophageal reflux disease without esophagitis; E03.9 Hypothyroidism, unspecified; E11.42 Type 2 diabetes mellitus with diabetic polyneuropathy; G47.33 Obstructive sleep apnea (adult) (pediatric); E78.2 Mixed hyperlipidemia; Z88.1 Allergy status to other antibiotic agents; Z88.5 Allergy status to narcotic agent; Z88.0 Allergy status to penicillin; Z88.2 Allergy status to sulfonamides; Z79.84 Long term (current) use of oral hypoglycemic drugs; Z79.890 Hormone replacement therapy; Z88.8 Allergy status to other drugs, medicaments and biological substances; Z79.899 Other long term (current) drug therapy
CPT/HCPCS: 36592; 80048; 83735

== ENCOUNTER 2023-04-04 04:53 | Day surgery (SDC) | payer OTHER ==
[2023-04-04 08:11] VITALS: BP 136/75
== END 2023-04-04 10:38 | disposition home or self-care (01) ==
LOC: ATC 04:53
DX: E83.42 Hypomagnesemia (principal); K21.9 Gastro-esophageal reflux disease without esophagitis; E03.9 Hypothyroidism, unspecified; G47.33 Obstructive sleep apnea (adult) (pediatric); E78.2 Mixed hyperlipidemia; I10 Essential (primary) hypertension; E11.51 Type 2 diabetes mellitus with diabetic peripheral angiopathy without gangrene; Z91.041 Radiographic dye allergy status; Z88.1 Allergy status to other antibiotic agents; Z88.5 Allergy status to narcotic agent; Z88.0 Allergy status to penicillin; Z88.2 Allergy status to sulfonamides; Z79.84 Long term (current) use of oral hypoglycemic drugs; Z79.890 Hormone replacement therapy; Z79.899 Other long term (current) drug therapy
CPT/HCPCS: 83735; 96365; 96366; J3475

== ENCOUNTER 2023-04-06 04:46 | Day surgery (SDC) | payer OTHER ==
[2023-04-06 07:31] VITALS: BP 117/72
== END 2023-04-06 11:27 | disposition home or self-care (01) ==
LOC: ATC 04:46
DX: E83.42 Hypomagnesemia (principal); I10 Essential (primary) hypertension; K21.9 Gastro-esophageal reflux disease without esophagitis; E03.9 Hypothyroidism, unspecified; G47.33 Obstructive sleep apnea (adult) (pediatric); E11.51 Type 2 diabetes mellitus with diabetic peripheral angiopathy without gangrene; E78.2 Mixed hyperlipidemia; Z88.1 Allergy status to other antibiotic agents; Z88.5 Allergy status to narcotic agent; Z88.8 Allergy status to other drugs, medicaments and biological substances; Z91.030 Bee allergy status; Z79.890 Hormone replacement therapy; Z79.899 Other long term (current) drug therapy
CPT/HCPCS: 96365; 96366; J3475

== ENCOUNTER 2023-04-09 02:26 | Day surgery (SDC) | payer OTHER ==
[2023-04-09 07:56] VITALS: BP 137/85
[2023-04-09 08:20] LABS: Bun/Creatinine Ratio 18.4 (12.0-20.0); Calcium, Blood 8.6 mg/dL (8.5-10.1); Creatinine, Blood 1.14 mg/dL (0.40-1.00); Magnesium, Blood 1.7 mg/dL (1.6-2.4); Potassium, Blood 4.5 mmol/L (3.5-5.5)
== END 2023-04-09 10:24 | disposition home or self-care (01) ==
LOC: ATC 02:26
PROVIDERS: Hospitalist
DX: E83.42 Hypomagnesemia (principal); I10 Essential (primary) hypertension
CPT/HCPCS: 80048; 83735; 96365; 96366; J3475

== ENCOUNTER 2023-04-11 01:50 | Day surgery (SDC) | payer OTHER ==
[2023-04-11 08:55] VITALS: BP 130/94
== END 2023-04-11 10:47 | disposition home or self-care (01) ==
LOC: ATC 01:50
DX: E83.42 Hypomagnesemia (principal); I10 Essential (primary) hypertension; K21.9 Gastro-esophageal reflux disease without esophagitis; E03.9 Hypothyroidism, unspecified; G47.33 Obstructive sleep apnea (adult) (pediatric); E11.42 Type 2 diabetes mellitus with diabetic polyneuropathy; E78.2 Mixed hyperlipidemia; Z88.1 Allergy status to other antibiotic agents; Z88.5 Allergy status to narcotic agent; Z91.041 Radiographic dye allergy status; Z91.030 Bee allergy status; Z88.0 Allergy status to penicillin; Z88.2 Allergy status to sulfonamides; Z88.6 Allergy status to analgesic agent; Z79.84 Long term (current) use of oral hypoglycemic drugs; Z79.899 Other long term (current) drug therapy
CPT/HCPCS: 96365; 96366; J3475

== ENCOUNTER 2023-04-13 01:48 | Day surgery (SDC) | payer OTHER ==
[2023-04-13 07:43] VITALS: BP 157/72
== END 2023-04-13 11:06 | disposition home or self-care (01) ==
LOC: ATC 01:48
DX: E83.42 Hypomagnesemia (principal); K21.9 Gastro-esophageal reflux disease without esophagitis; E03.9 Hypothyroidism, unspecified; Z88.5 Allergy status to narcotic agent; Z88.1 Allergy status to other antibiotic agents; Z91.030 Bee allergy status; Z91.041 Radiographic dye allergy status; Z88.0 Allergy status to penicillin; Z88.2 Allergy status to sulfonamides
CPT/HCPCS: 96365; 96366; J3475

== ENCOUNTER 2023-04-16 00:33 | Day surgery (SDC) | payer OTHER ==
[2023-04-16 07:51] VITALS: BP 116/69
[2023-04-16 08:33] LABS: Albumin, Blood 3.3 g/dL (3.4-5.0); Anion Gap 6 mmol/L (6-16); Blood Urea Nitrogen 36 mg/dL (8-24); Bun/Creatinine Ratio 26.3 (12.0-20.0); CO2, Blood 23 mmol/L (21-32); Calcium, Blood 8.9 mg/dL (8.5-10.1); Chloride, Blood 112 mmol/L (98-108); Creatinine, Blood 1.37 mg/dL (0.40-1.00); Glomerular Filtration Rate 45 (60-); Glucose, Blood 125 mg/dL (70-99); Magnesium, Blood 2.2 mg/dL (1.6-2.4); Phosphorus, Blood 4.8 mg/dL (2.5-4.9); Potassium, Blood 4.3 mmol/L (3.5-5.5); Sodium, Blood 141 mmol/L (136-145); Uric Acid, Blood 6.1 mg/dL (2.6-6.0)
--- NOTE | 2023-04-16 09:12 | NUR ---
MAGNESIUM LEVEL IS 2.2 TODAY. NO MAGNESIUM INFUSION NEEDED TODAY. PT TO RETURN ON Sun04/18/23 FOR ANOTHER MAGNESIUM LEVEL.
== END 2023-04-16 09:12 | disposition home or self-care (01) ==
LOC: ATC 00:33
PROVIDERS: Hospitalist
DX: E83.42 Hypomagnesemia (principal); I10 Essential (primary) hypertension; K21.9 Gastro-esophageal reflux disease without esophagitis; E03.9 Hypothyroidism, unspecified; G47.33 Obstructive sleep apnea (adult) (pediatric); E11.40 Type 2 diabetes mellitus with diabetic neuropathy, unspecified; Z88.1 Allergy status to other antibiotic agents; Z88.5 Allergy status to narcotic agent; Z88.2 Allergy status to sulfonamides; Z88.0 Allergy status to penicillin; Z88.6 Allergy status to analgesic agent; Z79.899 Other long term (current) drug therapy
CPT/HCPCS: 36592; 80069; 83735; 84550

== ENCOUNTER 2023-04-18 06:03 | Day surgery (SDC) | payer OTHER ==
[2023-04-18 08:00] VITALS: BP 166/80
== END 2023-04-18 10:25 | disposition home or self-care (01) ==
LOC: ATC 06:03
DX: E83.42 Hypomagnesemia (principal); K21.9 Gastro-esophageal reflux disease without esophagitis; E03.9 Hypothyroidism, unspecified; G47.00 Insomnia, unspecified; G40.909 Epilepsy, unspecified, not intractable, without status epilepticus; Z88.5 Allergy status to narcotic agent; Z88.0 Allergy status to penicillin; Z88.2 Allergy status to sulfonamides; Z88.1 Allergy status to other antibiotic agents; Z91.030 Bee allergy status; Z91.041 Radiographic dye allergy status
CPT/HCPCS: 83735; 96365; 96366; J3475

== ENCOUNTER 2023-04-20 02:33 | Day surgery (SDC) | payer OTHER ==
[2023-04-20 07:30] VITALS: BP 139/98
== END 2023-04-20 11:21 | disposition home or self-care (01) ==
LOC: ATC 02:33
DX: E83.42 Hypomagnesemia (principal); I10 Essential (primary) hypertension; Z88.0 Allergy status to penicillin; K21.9 Gastro-esophageal reflux disease without esophagitis; E03.9 Hypothyroidism, unspecified; F41.9 Anxiety disorder, unspecified; Z88.5 Allergy status to narcotic agent; Z88.2 Allergy status to sulfonamides; Z88.1 Allergy status to other antibiotic agents; Z91.030 Bee allergy status
CPT/HCPCS: 96365; 96366; J3475

== ENCOUNTER 2023-04-23 02:46 | Day surgery (SDC) | payer OTHER ==
[2023-04-23 07:35] VITALS: BP 121/74
[2023-04-23 07:57] LABS: Bun/Creatinine Ratio 22.2 (12.0-20.0); Calcium, Blood 9.5 mg/dL (8.5-10.1); Creatinine, Blood 1.17 mg/dL (0.40-1.00); Potassium, Blood 4.5 mmol/L (3.5-5.5)
--- NOTE | 2023-04-23 08:12 | NUR ---
MAGNESIUM LEVEL IS 2.0 TODAY. NO MAGNESIUM INFUSION REQUIRED. WILL PLAN TO REDRAW MAGNESIUM LEVEL ON Sunday04/25/23.
== END 2023-04-23 08:13 | disposition home or self-care (01) ==
LOC: ATC 02:46
PROVIDERS: Hospitalist
DX: E83.42 Hypomagnesemia (principal); I10 Essential (primary) hypertension; K21.9 Gastro-esophageal reflux disease without esophagitis; E03.9 Hypothyroidism, unspecified; F43.10 Post-traumatic stress disorder, unspecified; Z88.5 Allergy status to narcotic agent; Z88.1 Allergy status to other antibiotic agents; Z88.2 Allergy status to sulfonamides; Z88.0 Allergy status to penicillin
CPT/HCPCS: 36592; 80048; 83735

== ENCOUNTER 2023-04-25 02:19 | Day surgery (SDC) | payer OTHER ==
[2023-04-25 07:40] VITALS: BP 152/82
== END 2023-04-25 10:20 | disposition home or self-care (01) ==
LOC: ATC 02:19
DX: E83.42 Hypomagnesemia (principal); I10 Essential (primary) hypertension; Z88.5 Allergy status to narcotic agent; Z88.1 Allergy status to other antibiotic agents; Z91.030 Bee allergy status; Z91.041 Radiographic dye allergy status; Z88.0 Allergy status to penicillin; Z88.2 Allergy status to sulfonamides; K21.9 Gastro-esophageal reflux disease without esophagitis; E03.9 Hypothyroidism, unspecified; G62.9 Polyneuropathy, unspecified; G40.909 Epilepsy, unspecified, not intractable, without status epilepticus
CPT/HCPCS: 83735; 96365; 96366; J3475

== ENCOUNTER 2023-04-27 07:25 | Day surgery (SDC) | payer OTHER ==
[2023-04-27 07:43] VITALS: BP 158/112
== END 2023-04-27 10:59 | disposition home or self-care (01) ==
LOC: ATC 07:25
DX: E83.42 Hypomagnesemia (principal); I10 Essential (primary) hypertension; E03.9 Hypothyroidism, unspecified; F43.10 Post-traumatic stress disorder, unspecified; Z88.5 Allergy status to narcotic agent; Z88.2 Allergy status to sulfonamides; Z91.030 Bee allergy status; Z88.0 Allergy status to penicillin
CPT/HCPCS: 96365; 96366; J3475

== ENCOUNTER 2023-04-30 02:55 | Day surgery (SDC) | payer OTHER ==
[2023-04-30 07:48] VITALS: BP 161/91
[2023-04-30 08:25] LABS: Bun/Creatinine Ratio 25.7 (12.0-20.0); Calcium, Blood 8.9 mg/dL (8.5-10.1); Creatinine, Blood 1.09 mg/dL (0.40-1.00); Magnesium, Blood 1.7 mg/dL (1.6-2.4); Potassium, Blood 4.2 mmol/L (3.5-5.5)
== END 2023-04-30 10:33 | disposition home or self-care (01) ==
LOC: ATC 02:55
PROVIDERS: Hospitalist
DX: E83.42 Hypomagnesemia (principal); I10 Essential (primary) hypertension; K21.9 Gastro-esophageal reflux disease without esophagitis; E03.9 Hypothyroidism, unspecified; G47.33 Obstructive sleep apnea (adult) (pediatric); F43.10 Post-traumatic stress disorder, unspecified; G40.909 Epilepsy, unspecified, not intractable, without status epilepticus; F33.3 Major depressive disorder, recurrent, severe with psychotic symptoms; Z88.0 Allergy status to penicillin; Z88.2 Allergy status to sulfonamides; Z79.899 Other long term (current) drug therapy
CPT/HCPCS: 80048; 83735; 96365; 96366; J3475

== ENCOUNTER 2023-05-02 02:05 | Day surgery (SDC) | payer OTHER ==
[2023-05-02 07:35] VITALS: BP 170/100
== END 2023-05-02 09:19 | disposition home or self-care (01) ==
LOC: ATC 02:05
DX: E83.42 Hypomagnesemia (principal); Z88.0 Allergy status to penicillin; Z88.2 Allergy status to sulfonamides; Z88.1 Allergy status to other antibiotic agents; Z91.030 Bee allergy status; Z91.041 Radiographic dye allergy status; I10 Essential (primary) hypertension; F41.9 Anxiety disorder, unspecified; K21.9 Gastro-esophageal reflux disease without esophagitis; E03.9 Hypothyroidism, unspecified; G40.909 Epilepsy, unspecified, not intractable, without status epilepticus
CPT/HCPCS: 96365; 96366; J3475

== ENCOUNTER 2023-05-04 04:01 | Day surgery (SDC) | payer OTHER ==
[2023-05-04 07:38] VITALS: BP 167/99
== END 2023-05-04 12:00 | disposition home or self-care (01) ==
LOC: ATC 04:01
DX: E83.42 Hypomagnesemia (principal); I10 Essential (primary) hypertension; K21.9 Gastro-esophageal reflux disease without esophagitis; G47.33 Obstructive sleep apnea (adult) (pediatric); G40.909 Epilepsy, unspecified, not intractable, without status epilepticus; Z88.5 Allergy status to narcotic agent; Z88.2 Allergy status to sulfonamides; Z88.1 Allergy status to other antibiotic agents; Z91.030 Bee allergy status; Z91.040 Latex allergy status; Z88.0 Allergy status to penicillin
CPT/HCPCS: 36569; 96365; 96366; C1751; J3475

== ENCOUNTER 2023-05-07 04:12 | Day surgery (SDC) | payer OTHER ==
[2023-05-07 07:35] VITALS: BP 139/81
[2023-05-07 08:07] LABS: Bun/Creatinine Ratio 32.2 (12.0-20.0); Calcium, Blood 8.6 mg/dL (8.5-10.1); Creatinine, Blood 0.99 mg/dL (0.40-1.00); Magnesium, Blood 1.8 mg/dL (1.6-2.4); Potassium, Blood 4.6 mmol/L (3.5-5.5)
== END 2023-05-07 10:33 | disposition home or self-care (01) ==
LOC: ATC 04:12
PROVIDERS: Hospitalist
DX: E83.42 Hypomagnesemia (principal); I10 Essential (primary) hypertension; K21.9 Gastro-esophageal reflux disease without esophagitis; E03.9 Hypothyroidism, unspecified; G47.33 Obstructive sleep apnea (adult) (pediatric); G40.909 Epilepsy, unspecified, not intractable, without status epilepticus; Z88.5 Allergy status to narcotic agent; Z88.2 Allergy status to sulfonamides; Z88.1 Allergy status to other antibiotic agents; Z91.030 Bee allergy status; Z91.041 Radiographic dye allergy status; Z88.0 Allergy status to penicillin
CPT/HCPCS: 80048; 83735; 96365; 96366; J3475

== ENCOUNTER 2023-05-09 02:06 | Day surgery (SDC) | payer OTHER ==
[2023-05-09 07:43] VITALS: BP 120/79
== END 2023-05-09 09:30 | disposition home or self-care (01) ==
LOC: ATC 02:06
DX: E83.42 Hypomagnesemia (principal); K21.9 Gastro-esophageal reflux disease without esophagitis; I12.9 Hypertensive chronic kidney disease with stage 1 through stage 4 chronic kidney disease, or unspecified chronic kidney disease; E11.22 Type 2 diabetes mellitus with diabetic chronic kidney disease; N18.31 Chronic kidney disease, stage 3a; E11.42 Type 2 diabetes mellitus with diabetic polyneuropathy; E78.2 Mixed hyperlipidemia; E03.9 Hypothyroidism, unspecified; G47.33 Obstructive sleep apnea (adult) (pediatric); Z86.16 Personal history of COVID-19; Z91.041 Radiographic dye allergy status; Z88.0 Allergy status to penicillin; Z88.2 Allergy status to sulfonamides; Z88.1 Allergy status to other antibiotic agents; Z88.5 Allergy status to narcotic agent; Z88.6 Allergy status to analgesic agent; Z79.899 Other long term (current) drug therapy
CPT/HCPCS: 96365; 96366; J3475

== ENCOUNTER 2023-05-11 03:11 | Day surgery (SDC) | payer OTHER ==
[2023-05-11 07:32] VITALS: BP 167/95
== END 2023-05-11 10:53 | disposition home or self-care (01) ==
LOC: ATC 03:11
DX: E83.42 Hypomagnesemia (principal); I10 Essential (primary) hypertension
CPT/HCPCS: 96365; 96366; J3475

== ENCOUNTER 2023-05-16 04:02 | Day surgery (SDC) | payer OTHER ==
[2023-05-16 08:05] VITALS: BP 178/100
== END 2023-05-16 09:50 | disposition home or self-care (01) ==
LOC: ATC 04:02
DX: E83.42 Hypomagnesemia (principal); I10 Essential (primary) hypertension; K21.9 Gastro-esophageal reflux disease without esophagitis; E03.9 Hypothyroidism, unspecified; F43.10 Post-traumatic stress disorder, unspecified; G40.909 Epilepsy, unspecified, not intractable, without status epilepticus; Z88.2 Allergy status to sulfonamides; Z88.0 Allergy status to penicillin
CPT/HCPCS: 96365; 96366; J3475

== ENCOUNTER 2023-05-18 03:55 | Day surgery (SDC) | payer OTHER ==
[2023-05-18 07:40] VITALS: BP 171/102
[2023-05-18 09:11] VITALS: BP 173/105
[2023-05-18 10:00] VITALS: BP 180/98
--- NOTE | 2023-05-18 10:07 | NUR ---
CALLED [facility] TO INFORM DR TOM ABOUT PT'S HIGH BLOOD PRESSURE, HEADACHE, AND VISUAL DISTURBANCE OF SEEING BRIGHT "FISH" MOVING ABOUT. THE OFFICE INSTRUCTED TO HAVE THE PATIENT GO TO THE ER OR THE URGENT CARE TO HAVE THE PATIENTS MEDICATIONS ADJUSTED SINCE THE PATIENT IS SYMPTOMATIC. INFORMED PT OF THE RECOMMENDATION, AND PT VERBALIZED UNDERSTANDING. PT CURRENTLY FEELS LIKE SHE HAS A MIGRAINE.
--- NOTE | 2023-05-18 12:16 | NUR ---
AT DISCHARGE AT 1058 PT SOUNDED LIKE SHE WAS WILLING TO GO TO THE ER TO HAVE HER HIGH BLOOD PRESSURE AND SYMPTOMS CHECKED OUT BY AN MD. GAVE MORE EDUCATION REGARDING THE BENEFITS OF GOING TO ER, PT SEEMED PERCEPTIVE TO THE IDEA.
== END 2023-05-18 10:58 | disposition home or self-care (01) ==
LOC: ATC 03:55
DX: E83.42 Hypomagnesemia (principal); I10 Essential (primary) hypertension; K21.9 Gastro-esophageal reflux disease without esophagitis; G47.33 Obstructive sleep apnea (adult) (pediatric); G40.909 Epilepsy, unspecified, not intractable, without status epilepticus; E03.9 Hypothyroidism, unspecified; Z88.5 Allergy status to narcotic agent; Z88.0 Allergy status to penicillin; Z88.2 Allergy status to sulfonamides; Z88.1 Allergy status to other antibiotic agents; Z91.030 Bee allergy status
CPT/HCPCS: 96365; 96366; J3475

== ENCOUNTER 2023-05-21 00:31 | Day surgery (SDC) | payer OTHER ==
[2023-05-21 07:32] VITALS: BP 160/100
[2023-05-21 08:05] LABS: Calcium, Blood 8.9 mg/dL (8.5-10.1); Creatinine, Blood 0.84 mg/dL (0.40-1.00); Magnesium, Blood 1.5 mg/dL (1.6-2.4); Potassium, Blood 3.6 mmol/L (3.5-5.5)
== END 2023-05-21 10:14 | disposition home or self-care (01) ==
LOC: ATC 00:31
PROVIDERS: Hospitalist
DX: E83.42 Hypomagnesemia (principal); I10 Essential (primary) hypertension; K21.9 Gastro-esophageal reflux disease without esophagitis; E03.9 Hypothyroidism, unspecified; G40.909 Epilepsy, unspecified, not intractable, without status epilepticus; Z88.5 Allergy status to narcotic agent; Z88.2 Allergy status to sulfonamides; Z91.030 Bee allergy status; Z91.041 Radiographic dye allergy status; Z88.0 Allergy status to penicillin
CPT/HCPCS: 80048; 83735; 96365; 96366; J3475

== ENCOUNTER 2023-05-23 01:05 | Day surgery (SDC) | payer OTHER ==
[2023-05-23 07:38] VITALS: BP 188/101
== END 2023-05-23 09:30 | disposition home or self-care (01) ==
LOC: ATC 01:05
DX: E83.42 Hypomagnesemia (principal); I10 Essential (primary) hypertension
CPT/HCPCS: 96365; 96366; J3475

== ENCOUNTER 2023-05-25 03:06 | Day surgery (SDC) | payer OTHER ==
[2023-05-25 07:34] VITALS: BP 145/96
[2023-05-25] MEDS ORDERED: AMLO5 PO (07:38)
[2023-05-25] MEDS ORDERED: LISI20 PO (07:38)
== END 2023-05-25 10:50 | disposition home or self-care (01) ==
LOC: ATC 03:06
DX: E83.42 Hypomagnesemia (principal); I10 Essential (primary) hypertension; G40.909 Epilepsy, unspecified, not intractable, without status epilepticus; K21.9 Gastro-esophageal reflux disease without esophagitis; Z88.0 Allergy status to penicillin; Z88.2 Allergy status to sulfonamides; Z88.5 Allergy status to narcotic agent
CPT/HCPCS: 96365; 96366; J3475

== ENCOUNTER 2023-05-28 01:11 | Day surgery (SDC) | payer OTHER ==
[~2023-05-28 01:11] MED LIST changes: +AMLO5 PO
[2023-05-28 07:25] VITALS: BP 120/96
[2023-05-28 08:07] LABS: Bun/Creatinine Ratio 21.5 (12.0-20.0); Calcium, Blood 8.7 mg/dL (8.5-10.1); Creatinine, Blood 1.07 mg/dL (0.40-1.00); Magnesium, Blood 1.9 mg/dL (1.6-2.4); Potassium, Blood 4.6 mmol/L (3.5-5.5)
--- NOTE | 2023-05-28 08:20 | NUR ---
MAGNESIUM LEVEL IS 1.9 TODAY. NO MAGNEIUM INFUSION NEEDED PER MD ORDER. PT TO RETURN Sun05/30/23 FOR ANOTHER LAB DRAW AND POSSIBLE MAGNESIUM INFUSION.
== END 2023-05-28 08:14 | disposition home or self-care (01) ==
LOC: ATC 01:11
PROVIDERS: Hospitalist
DX: E83.42 Hypomagnesemia (principal); I10 Essential (primary) hypertension; K21.9 Gastro-esophageal reflux disease without esophagitis; E03.9 Hypothyroidism, unspecified; G47.33 Obstructive sleep apnea (adult) (pediatric); E78.2 Mixed hyperlipidemia; E11.42 Type 2 diabetes mellitus with diabetic polyneuropathy; Z91.030 Bee allergy status; Z91.041 Radiographic dye allergy status; Z88.5 Allergy status to narcotic agent; Z88.1 Allergy status to other antibiotic agents; Z88.8 Allergy status to other drugs, medicaments and biological substances; Z88.2 Allergy status to sulfonamides; Z88.0 Allergy status to penicillin; Z79.84 Long term (current) use of oral hypoglycemic drugs; Z79.890 Hormone replacement therapy; Z79.899 Other long term (current) drug therapy
CPT/HCPCS: 36592; 80048; 83735

== ENCOUNTER 2023-05-30 05:02 | Day surgery (SDC) | payer OTHER ==
[2023-05-30 07:40] VITALS: BP 144/85
[2023-05-30 07:54] LABS: BASOPHILS ABSOLUTE AUTO 0.03 K/mm3 (0.00-0.23); BASOPHILS PERCENT AUTO 1 % (0-2); EOSINOPHILS ABSOLUTE AUTO 0.26 K/mm3 (0.00-0.68); EOSINOPHILS PERCENT AUTO 6 % (0-6); Hematocrit 32.4 % (33.0-51.0); Hemoglobin 10.6 g/dL (11.5-16.0); IMMATURE GRAN ABSOLUTE AUTO 0.01 K/mm3 (0.00-0.10); IMMATURE GRAN PERCENT AUTO 0 % (0-1); LYMPHOCYTES ABSOLUTE AUTO 1.71 K/mm3 (0.84-5.20); LYMPHOCYTES PERCENT AUTO 40 % (21-46); MONOCYTES ABSOLUTE AUTO 0.34 K/mm3 (0.16-1.47); MONOCYTES PERCENT AUTO 8 % (4-13); Mean Corpuscular HGB 31.4 pg (26.0-34.0); Mean Corpuscular HGB Conc 32.7 g/dL (31.5-36.5); Mean Corpuscular Volume 96 fL (80-100); Mean Platelet Volume 9.4 fL (9.1-12.4); NEUTROPHILS ABSOLUTE AUTO 1.93 K/mm3 (1.96-9.15); NEUTROPHILS PERCENT AUTO 45 % (41-73); Platelet Count 260 K/mm3 (150-400); RDW Coefficient Variation 13.2 % (11.7-14.2); RDW Standard Deviation 46.7 fL (35.1-46.3); Red Blood Cell Count 3.38 M/mm3 (3.80-5.20); White Blood Cell Count 4.28 K/mm3 (4.00-11.30)
== END 2023-05-30 10:40 | disposition home or self-care (01) ==
LOC: ATC 05:02
PROVIDERS: Family Medicine
DX: E83.42 Hypomagnesemia (principal); I10 Essential (primary) hypertension; K21.9 Gastro-esophageal reflux disease without esophagitis; E03.9 Hypothyroidism, unspecified; G40.909 Epilepsy, unspecified, not intractable, without status epilepticus; Z88.0 Allergy status to penicillin; Z88.5 Allergy status to narcotic agent; Z88.2 Allergy status to sulfonamides; Z88.8 Allergy status to other drugs, medicaments and biological substances
CPT/HCPCS: 83735; 85025; 96365; 96366; J3475

== ENCOUNTER 2023-06-01 01:25 | Day surgery (SDC) | payer OTHER ==
[2023-06-01 07:38] VITALS: BP 160/94
== END 2023-06-01 10:29 | disposition home or self-care (01) ==
LOC: ATC 01:25
DX: E83.42 Hypomagnesemia (principal); I10 Essential (primary) hypertension; K21.9 Gastro-esophageal reflux disease without esophagitis; E03.9 Hypothyroidism, unspecified; G47.33 Obstructive sleep apnea (adult) (pediatric); F43.10 Post-traumatic stress disorder, unspecified; F33.3 Major depressive disorder, recurrent, severe with psychotic symptoms; E78.2 Mixed hyperlipidemia; G43.909 Migraine, unspecified, not intractable, without status migrainosus; Z88.5 Allergy status to narcotic agent; Z88.0 Allergy status to penicillin; Z88.8 Allergy status to other drugs, medicaments and biological substances; Z79.899 Other long term (current) drug therapy
CPT/HCPCS: 96365; 96366; J3475

== ENCOUNTER 2023-06-03 04:53 | Day surgery (SDC) | payer OTHER ==
[2023-06-03 08:15] VITALS: BP 178/90
[2023-06-03 08:59] LABS: Bun/Creatinine Ratio 19.4 (12.0-20.0); Calcium, Blood 8.6 mg/dL (8.5-10.1); Creatinine, Blood 0.93 mg/dL (0.40-1.00); Magnesium, Blood 1.8 mg/dL (1.6-2.4); Potassium, Blood 3.6 mmol/L (3.5-5.5)
== END 2023-06-03 10:45 | disposition home or self-care (01) ==
LOC: ATC 04:53
PROVIDERS: Hospitalist
DX: E83.42 Hypomagnesemia (principal); I10 Essential (primary) hypertension; E03.9 Hypothyroidism, unspecified; K21.9 Gastro-esophageal reflux disease without esophagitis; G47.33 Obstructive sleep apnea (adult) (pediatric); F43.10 Post-traumatic stress disorder, unspecified; F33.3 Major depressive disorder, recurrent, severe with psychotic symptoms; E78.2 Mixed hyperlipidemia; G43.909 Migraine, unspecified, not intractable, without status migrainosus; Z79.899 Other long term (current) drug therapy; Z88.5 Allergy status to narcotic agent; Z88.0 Allergy status to penicillin; Z88.2 Allergy status to sulfonamides
CPT/HCPCS: 80048; 83735; 96365; J3475

== ENCOUNTER 2023-06-06 03:29 | Day surgery (SDC) | payer OTHER ==
[2023-06-06 07:45] VITALS: BP 122/71
== END 2023-06-06 09:04 | disposition home or self-care (01) ==
LOC: ATC 03:29
DX: E83.42 Hypomagnesemia (principal); I10 Essential (primary) hypertension; F43.10 Post-traumatic stress disorder, unspecified; F33.3 Major depressive disorder, recurrent, severe with psychotic symptoms; G47.33 Obstructive sleep apnea (adult) (pediatric); E11.42 Type 2 diabetes mellitus with diabetic polyneuropathy; Z79.4 Long term (current) use of insulin; Z79.84 Long term (current) use of oral hypoglycemic drugs; Z88.5 Allergy status to narcotic agent; Z88.8 Allergy status to other drugs, medicaments and biological substances; Z88.2 Allergy status to sulfonamides; Z88.0 Allergy status to penicillin
CPT/HCPCS: 96365; J3475

== ENCOUNTER 2023-06-08 03:17 | Day surgery (SDC) | payer OTHER ==
[2023-06-08 07:30] VITALS: BP 185/98
== END 2023-06-08 11:00 | disposition home or self-care (01) ==
LOC: ATC 03:17
DX: E83.42 Hypomagnesemia (principal); I10 Essential (primary) hypertension; K21.9 Gastro-esophageal reflux disease without esophagitis; E03.9 Hypothyroidism, unspecified; G47.33 Obstructive sleep apnea (adult) (pediatric); F43.10 Post-traumatic stress disorder, unspecified; F33.3 Major depressive disorder, recurrent, severe with psychotic symptoms; E11.42 Type 2 diabetes mellitus with diabetic polyneuropathy; Z88.8 Allergy status to other drugs, medicaments and biological substances; Z88.5 Allergy status to narcotic agent; Z88.2 Allergy status to sulfonamides; Z88.0 Allergy status to penicillin
CPT/HCPCS: 96365; 96366; J3475

== ENCOUNTER 2023-06-12 00:36 | Day surgery (SDC) | payer OTHER ==
[2023-06-12 14:38] VITALS: BP 132/88
[2023-06-12 15:31] LABS: Bun/Creatinine Ratio 23.1 (12.0-20.0); Calcium, Blood 9.1 mg/dL (8.5-10.1); Creatinine, Blood 1.21 mg/dL (0.40-1.00); Magnesium, Blood 1.9 mg/dL (1.6-2.4); Potassium, Blood 4.6 mmol/L (3.5-5.5)
--- NOTE | 2023-06-12 16:19 | NUR ---
PT CAME IN COMPLAINING OF HAVING EPISODE OF R EYE DROOPING WITH HTN, AND TROUBLE TALKING. THE PT STATES SHE SPOKE WITH HER PCP AND THEY TOLD HER THAT IF SHE HAS ANOTHER TO GO TO ER. PT WITH WITH LARGE ON THE OUTER R ARM NEXT TO PICC. PT STATES SHE HAS A LARGE BRUISE ON HER BREAST. I TALKED WITH PT ABOUT STROKE SIGNS AND SYMPTOMS. PT VERY UPSET AND HAS HAD ALOT OF STRESS LATELY.
== END 2023-06-12 15:35 | disposition home or self-care (01) ==
LOC: ATC 00:36
PROVIDERS: Hospitalist
DX: E83.42 Hypomagnesemia (principal); I10 Essential (primary) hypertension; K21.9 Gastro-esophageal reflux disease without esophagitis; E03.9 Hypothyroidism, unspecified; G47.33 Obstructive sleep apnea (adult) (pediatric); F43.10 Post-traumatic stress disorder, unspecified; F33.3 Major depressive disorder, recurrent, severe with psychotic symptoms; E78.2 Mixed hyperlipidemia; E11.42 Type 2 diabetes mellitus with diabetic polyneuropathy; Z79.899 Other long term (current) drug therapy; Z88.5 Allergy status to narcotic agent; Z88.8 Allergy status to other drugs, medicaments and biological substances; Z88.0 Allergy status to penicillin; Z88.2 Allergy status to sulfonamides
CPT/HCPCS: 36592; 80048; 83735

== ENCOUNTER 2023-06-15 02:21 | Day surgery (SDC) | payer OTHER ==
[2023-06-15 07:39] VITALS: BP 95/55
--- NOTE | 2023-06-15 08:52 | NUR ---
MG LEVEL REMAINS 1.9 TODAY. MAGNESIUM INFUSION HELD.
== END 2023-06-15 08:28 | disposition home or self-care (01) ==
LOC: ATC 02:21
DX: E83.42 Hypomagnesemia (principal); I10 Essential (primary) hypertension; K21.9 Gastro-esophageal reflux disease without esophagitis; E03.9 Hypothyroidism, unspecified; F43.10 Post-traumatic stress disorder, unspecified; F33.3 Major depressive disorder, recurrent, severe with psychotic symptoms; Z79.899 Other long term (current) drug therapy; Z88.8 Allergy status to other drugs, medicaments and biological substances; Z88.5 Allergy status to narcotic agent; Z88.2 Allergy status to sulfonamides; Z88.0 Allergy status to penicillin
CPT/HCPCS: 36592; 83735

== ENCOUNTER 2023-06-19 03:41 | Day surgery (SDC) | payer OTHER ==
[2023-06-19 15:18] VITALS: BP 184/116
[2023-06-19 15:46] LABS: Calcium, Blood 9.8 mg/dL (8.5-10.1); Creatinine, Blood 1.24 mg/dL (0.40-1.00); Magnesium, Blood 1.8 mg/dL (1.6-2.4); Potassium, Blood 4.4 mmol/L (3.5-5.5)
== END 2023-06-19 17:28 | disposition home or self-care (01) ==
LOC: ATC 03:41
PROVIDERS: Hospitalist
DX: E83.42 Hypomagnesemia (principal); I10 Essential (primary) hypertension; K21.9 Gastro-esophageal reflux disease without esophagitis; E03.9 Hypothyroidism, unspecified; F43.10 Post-traumatic stress disorder, unspecified; F33.3 Major depressive disorder, recurrent, severe with psychotic symptoms; Z79.84 Long term (current) use of oral hypoglycemic drugs; Z88.8 Allergy status to other drugs, medicaments and biological substances; Z88.5 Allergy status to narcotic agent; Z88.0 Allergy status to penicillin; Z88.2 Allergy status to sulfonamides
CPT/HCPCS: 80048; 83735; 96365; 96366; J3475

== ENCOUNTER 2023-06-22 01:14 | Day surgery (SDC) | payer OTHER ==
[2023-06-22 07:42] VITALS: BP 101/56
[2023-06-22 15:31] LABS: Albumin, Blood 3.6 g/dL (3.4-5.0); Anion Gap 6 mmol/L (6-16); Blood Urea Nitrogen 27 mg/dL (8-24); Bun/Creatinine Ratio 15.5 (12.0-20.0); CO2, Blood 26 mmol/L (21-32); Calcium, Blood 8.8 mg/dL (8.5-10.1); Chloride, Blood 100 mmol/L (98-108); Creatinine, Blood 1.74 mg/dL (0.40-1.00); Glomerular Filtration Rate 33 (60-); Glucose, Blood 222 mg/dL (70-99); Phosphorus, Blood 4.7 mg/dL (2.5-4.9); Potassium, Blood 4.7 mmol/L (3.5-5.5); Sodium, Blood 132 mmol/L (136-145)
== END 2023-06-22 14:27 | disposition home or self-care (01) ==
LOC: ATC 01:14
PROVIDERS: Hospitalist
DX: E83.42 Hypomagnesemia (principal); I10 Essential (primary) hypertension; K21.9 Gastro-esophageal reflux disease without esophagitis; E03.9 Hypothyroidism, unspecified; F43.10 Post-traumatic stress disorder, unspecified; F33.3 Major depressive disorder, recurrent, severe with psychotic symptoms; Z88.8 Allergy status to other drugs, medicaments and biological substances; Z88.5 Allergy status to narcotic agent; Z88.2 Allergy status to sulfonamides; Z88.0 Allergy status to penicillin; Z79.899 Other long term (current) drug therapy
CPT/HCPCS: 80069; 96365; J3475

== ENCOUNTER 2023-06-26 02:30 | Day surgery (SDC) | payer OTHER ==
[2023-06-26 13:35] VITALS: BP 181/97
[2023-06-26 14:44] LABS: Albumin, Blood 3.7 g/dL (3.4-5.0); Anion Gap 6 mmol/L (6-16); Blood Urea Nitrogen 22 mg/dL (8-24); CO2, Blood 27 mmol/L (21-32); Calcium, Blood 8.9 mg/dL (8.5-10.1); Chloride, Blood 105 mmol/L (98-108); Creatinine, Blood 1.16 mg/dL (0.40-1.00); Glomerular Filtration Rate 54 (60-); Glucose, Blood 239 mg/dL (70-99); Magnesium, Blood 1.8 mg/dL (1.6-2.4); Phosphorus, Blood 4.7 mg/dL (2.5-4.9); Potassium, Blood 3.9 mmol/L (3.5-5.5); Sodium, Blood 138 mmol/L (136-145)
== END 2023-06-26 16:15 | disposition home or self-care (01) ==
LOC: ATC 02:30
PROVIDERS: Hospitalist
DX: E83.42 Hypomagnesemia (principal); I10 Essential (primary) hypertension; K21.9 Gastro-esophageal reflux disease without esophagitis; E03.9 Hypothyroidism, unspecified; G47.33 Obstructive sleep apnea (adult) (pediatric); E11.42 Type 2 diabetes mellitus with diabetic polyneuropathy; E78.2 Mixed hyperlipidemia; Z91.041 Radiographic dye allergy status; Z91.030 Bee allergy status; Z88.1 Allergy status to other antibiotic agents; Z88.0 Allergy status to penicillin; Z88.2 Allergy status to sulfonamides; Z88.5 Allergy status to narcotic agent; Z88.8 Allergy status to other drugs, medicaments and biological substances; Z79.84 Long term (current) use of oral hypoglycemic drugs; Z79.890 Hormone replacement therapy; Z79.899 Other long term (current) drug therapy
CPT/HCPCS: 80069; 83735; 96365; J3475

== ENCOUNTER 2023-07-03 00:29 | Day surgery (SDC) | payer OTHER ==
[2023-07-03 08:07] VITALS: BP 146/91
[2023-07-03 08:09] LABS: Bun/Creatinine Ratio 25.9 (12.0-20.0); Calcium, Blood 8.9 mg/dL (8.5-10.1); Creatinine, Blood 1.16 mg/dL (0.40-1.00); Magnesium, Blood 1.8 mg/dL (1.6-2.4); Potassium, Blood 3.8 mmol/L (3.5-5.5)
== END 2023-07-03 09:46 | disposition home or self-care (01) ==
LOC: ATC 00:29
PROVIDERS: Hospitalist
DX: E83.42 Hypomagnesemia (principal); I10 Essential (primary) hypertension; Z88.5 Allergy status to narcotic agent; Z88.0 Allergy status to penicillin; Z88.2 Allergy status to sulfonamides; Z88.8 Allergy status to other drugs, medicaments and biological substances; Z88.1 Allergy status to other antibiotic agents; Z91.030 Bee allergy status; G40.909 Epilepsy, unspecified, not intractable, without status epilepticus; E03.9 Hypothyroidism, unspecified; K21.9 Gastro-esophageal reflux disease without esophagitis
CPT/HCPCS: 80048; 83735; 96365; J3475

== ENCOUNTER 2023-07-06 01:45 | Day surgery (SDC) | payer OTHER ==
[2023-07-06 09:00] VITALS: BP 143/90
== END 2023-07-06 10:15 | disposition home or self-care (01) ==
LOC: ATC 01:45
DX: E83.42 Hypomagnesemia (principal); K21.9 Gastro-esophageal reflux disease without esophagitis; F41.9 Anxiety disorder, unspecified; E03.9 Hypothyroidism, unspecified; R56.9 Unspecified convulsions; Z88.5 Allergy status to narcotic agent; Z88.0 Allergy status to penicillin; Z88.2 Allergy status to sulfonamides; Z88.1 Allergy status to other antibiotic agents; Z91.030 Bee allergy status; Z91.041 Radiographic dye allergy status
CPT/HCPCS: 96365; J3475

== ENCOUNTER 2023-07-10 01:54 | Day surgery (SDC) | payer OTHER ==
[2023-07-10] MEDS ORDERED: Magnesium Sulf 2 GM/Water 50ML 50 ML IV SCH (06:00)
[2023-07-10 08:21] LABS: Bun/Creatinine Ratio 12.2 (12.0-20.0); Creatinine, Blood 1.31 mg/dL (0.40-1.00); Magnesium, Blood 1.7 mg/dL (1.6-2.4); Potassium, Blood 3.7 mmol/L (3.5-5.5)
[2023-07-10 08:24] VITALS: BP 139/98
== END 2023-07-10 09:45 | disposition home or self-care (01) ==
LOC: ATC 01:54
PROVIDERS: Hospitalist
DX: E83.42 Hypomagnesemia (principal); I10 Essential (primary) hypertension; K21.9 Gastro-esophageal reflux disease without esophagitis; F43.10 Post-traumatic stress disorder, unspecified; F33.3 Major depressive disorder, recurrent, severe with psychotic symptoms; G40.909 Epilepsy, unspecified, not intractable, without status epilepticus; G62.9 Polyneuropathy, unspecified; G47.33 Obstructive sleep apnea (adult) (pediatric); E89.0 Postprocedural hypothyroidism; E78.2 Mixed hyperlipidemia; Z79.899 Other long term (current) drug therapy; Z88.0 Allergy status to penicillin; Z88.2 Allergy status to sulfonamides; Z88.5 Allergy status to narcotic agent
CPT/HCPCS: 80048; 83735; 96365; J3475

== ENCOUNTER 2023-07-14 01:19 | Day surgery (SDC) | payer OTHER ==
[2023-07-14] MEDS ORDERED: Magnesium Sulf 2 GM/Water 50ML 50 ML IV SCH (06:00)
--- NOTE | 2023-07-14 10:34 | NUR ---
STOP TIME for MAGNESIUM was 1019
== END 2023-07-14 10:19 | disposition home or self-care (01) ==
LOC: ATC 01:19
DX: E83.42 Hypomagnesemia (principal); K21.9 Gastro-esophageal reflux disease without esophagitis; E03.9 Hypothyroidism, unspecified; G47.33 Obstructive sleep apnea (adult) (pediatric); F43.10 Post-traumatic stress disorder, unspecified; F33.3 Major depressive disorder, recurrent, severe with psychotic symptoms; Z88.5 Allergy status to narcotic agent; Z88.8 Allergy status to other drugs, medicaments and biological substances; Z88.0 Allergy status to penicillin
CPT/HCPCS: 96365; J3475

== ENCOUNTER 2023-07-17 01:56 | Day surgery (SDC) | payer OTHER ==
[2023-07-17] MEDS ORDERED: Magnesium Sulf 2 GM/Water 50ML 50 ML IV SCH (06:00)
[2023-07-17 07:40] VITALS: BP 160/89
[2023-07-17 08:15] LABS: Bun/Creatinine Ratio 15.5 (12.0-20.0); Calcium, Blood 9.5 mg/dL (8.5-10.1); Creatinine, Blood 1.29 mg/dL (0.40-1.00); Magnesium, Blood 1.6 mg/dL (1.6-2.4); Potassium, Blood 3.9 mmol/L (3.5-5.5)
== END 2023-07-17 09:55 | disposition home or self-care (01) ==
LOC: ATC 01:56
PROVIDERS: Hospitalist
DX: E83.42 Hypomagnesemia (principal); F41.9 Anxiety disorder, unspecified; K21.9 Gastro-esophageal reflux disease without esophagitis; R56.9 Unspecified convulsions; Z88.5 Allergy status to narcotic agent; Z88.2 Allergy status to sulfonamides; Z88.1 Allergy status to other antibiotic agents; Z91.030 Bee allergy status; Z91.041 Radiographic dye allergy status; Z88.0 Allergy status to penicillin; E89.0 Postprocedural hypothyroidism
CPT/HCPCS: 80048; 83735; 96365; J3475

== ENCOUNTER 2023-07-24 03:37 | Day surgery (SDC) | payer OTHER ==
[2023-07-24] MEDS ORDERED: Magnesium Sulf 2 GM/Water 50ML 50 ML IV SCH (06:00)
[2023-07-24 07:46] VITALS: BP 100/66
== END 2023-07-24 09:30 | disposition home or self-care (01) ==
LOC: ATC 03:37
DX: E83.42 Hypomagnesemia (principal); F41.9 Anxiety disorder, unspecified; K21.9 Gastro-esophageal reflux disease without esophagitis; E03.9 Hypothyroidism, unspecified; G40.909 Epilepsy, unspecified, not intractable, without status epilepticus; G47.33 Obstructive sleep apnea (adult) (pediatric); Z88.5 Allergy status to narcotic agent; Z88.0 Allergy status to penicillin; Z88.2 Allergy status to sulfonamides; Z88.8 Allergy status to other drugs, medicaments and biological substances; Z88.1 Allergy status to other antibiotic agents; Z91.030 Bee allergy status; Z91.041 Radiographic dye allergy status
CPT/HCPCS: 83735; 96365; J3475

== ENCOUNTER 2023-07-27 05:07 | Day surgery (SDC) | payer OTHER ==
[2023-07-27] MEDS ORDERED: Magnesium Sulf 2 GM/Water 50ML 50 ML IV SCH (06:00)
[2023-07-27 09:07] VITALS: BP 105/60
== END 2023-07-27 10:27 | disposition home or self-care (01) ==
LOC: ATC 05:07
DX: E83.42 Hypomagnesemia (principal); F41.9 Anxiety disorder, unspecified; K21.9 Gastro-esophageal reflux disease without esophagitis; E03.9 Hypothyroidism, unspecified; G47.33 Obstructive sleep apnea (adult) (pediatric); G40.909 Epilepsy, unspecified, not intractable, without status epilepticus; Z88.5 Allergy status to narcotic agent; Z88.0 Allergy status to penicillin; Z88.2 Allergy status to sulfonamides; Z88.1 Allergy status to other antibiotic agents; Z91.030 Bee allergy status; Z91.041 Radiographic dye allergy status
CPT/HCPCS: 96365; J3475

== ENCOUNTER 2023-11-08 13:59 | Observation (INO) | payer OTHER ==
[~2023-11-08] VITALS: Ht 157.5 cm; Wt 94.7 kg
[2023-11-08] VITALS (9 sets, daily range): BP systolic 105–128; BP diastolic 62–99
[~2023-11-08 13:59] MED LIST changes: +ALOGLIPTIN25 M7 PO; +ATOR80 PO; +DILT120 PO; +EPIPEN0.3 MG/0.3 IM; +GLUCOPHAGE1000 M1 PO; -IPRAT-ALBUT 0.5-3 ML; +IPRAT-ALBUT 0.5-3 ML INH; +LEVSOD150 PO; +MAGNESIUM OXID500 MG PO; +METO100ER PO; +Oxybutynin Chlo15 MG PO; +PIOG15 PO; +PRAZOSIN HCL5 MG PO; +TIZA4 PO
[2023-11-08 14:25] LABS: BASOPHILS ABSOLUTE AUTO 0.02 K/mm3 (0.00-0.23); BASOPHILS PERCENT AUTO 0 % (0-2); EOSINOPHILS PERCENT AUTO 1 % (0-6); Hematocrit 30.3 % (33.0-51.0); Hemoglobin 10.1 g/dL (11.5-16.0); IMMATURE GRAN ABSOLUTE AUTO 0.04 K/mm3 (0.00-0.10); IMMATURE GRAN PERCENT AUTO 1 % (0-1); LYMPHOCYTES ABSOLUTE AUTO 2.65 K/mm3 (0.84-5.20); LYMPHOCYTES PERCENT AUTO 34 % (21-46); MONOCYTES ABSOLUTE AUTO 0.43 K/mm3 (0.16-1.47); MONOCYTES PERCENT AUTO 5 % (4-13); Mean Corpuscular HGB Conc 33.3 g/dL (31.5-36.5); Mean Corpuscular Volume 99 fL (80-100); Mean Platelet Volume 9.8 fL (9.1-12.4); NEUTROPHILS ABSOLUTE AUTO 4.66 K/mm3 (1.96-9.15); NEUTROPHILS PERCENT AUTO 59 % (41-73); Platelet Count 261 K/mm3 (150-400); RDW Coefficient Variation 13.6 % (11.7-14.2); RDW Standard Deviation 49.5 fL (35.1-46.3); Red Blood Cell Count 3.06 M/mm3 (3.80-5.20)
[2023-11-08] MEDS ORDERED: AMLO10 PO ×2 (14:25→14:27)
[2023-11-08] MEDS ORDERED: Lisinopril2.5 MG (14:26)
[2023-11-08] MEDS ORDERED: OXYC5 PO (14:26)
[2023-11-08] MEDS ORDERED: SENNA LAXATIVE8.6 MG PO (14:26)
[2023-11-08] MEDS ORDERED: SITA25T2 PO (14:26)
[2023-11-08] MEDS ORDERED: NS 1,000 ML IV SCH ×3 (14:45→16:30)
[2023-11-08 14:52] LABS: Albumin, Blood 3.5 g/dL (3.4-5.0); Albumin/Globulin Ratio 0.8 (0.8-1.8); Bilirubin, Total 0.3 mg/dL (0.1-1.0); Bun/Creatinine Ratio 13.8 (12.0-20.0); Calcium, Blood 10.7 mg/dL (8.5-10.1); Creatinine, Blood 1.96 mg/dL (0.40-1.00); Globulin, Blood 4.4 g/dL (2.2-4.0); Magnesium, Blood 1.7 mg/dL (1.6-2.4); Phosphorus, Blood 3.3 mg/dL (2.5-4.9); Potassium, Blood 4.7 mmol/L (3.5-5.5); Total Protein, Blood 7.9 g/dL (6.4-8.2)
[2023-11-08] MEDS ORDERED: Acetaminophen 325 MG TABLET PO PRN (16:25)
[2023-11-08] MEDS ORDERED: Ondansetron HCl 2 MG / ML 2ML Vial IV PRN (16:30)
[2023-11-08] MEDS ORDERED: Insulin Regular 100 UNIT/ML 10ML Vial SC SCH (16:30)
[2023-11-08] MEDS ORDERED: Albuterol HFA200 ACT/6.7 GM INH INH PRN (16:35)
--- NOTE | 2023-11-08 18:44 | NUR ---
PCU ADMIT / END OF SHIFT PT BROUGHT TO PCU-3 BY CAT FROM ER @ APPROX 1700. PT A&O X4. PT REPORTS HAVING FALLEN MULTIPLE TIMES AT HOME TODAY & HAVING HIT HEAD. CALL TO MD DURON W/ ORDER FOR HEAD CT. PT VSS. SPO2 > 92% ON RA. MONITOR SHOWING SB-SR, HR 50s-60s. PT REPORTING "KIDNEY STONE PAIN." NS GTT INFUSING PER EMAR. WILL REPORT TO ONCOMING SHIFT.
--- NOTE | 2023-11-08 20:11 | NUR ---
ASSUMPTION OF CARE Pt resting in bed, oriented x4, denies dizziness or lightheadedness while lying but reports she does get dizzy when standing up. Respiratory within normal limits, on room air. Monitor shows sinus viviane, blood pressure stable with systolic greater than 100. Pt denies /GI issues. Reports chronic back pain, PRN tylenol administered.
[2023-11-08] MEDS ORDERED: Amitriptyline HCl 50 MG Tab PO SCH (21:00)
[2023-11-08] MEDS ORDERED: QUEtiapine Fumarate 50 MG TAB PO SCH (21:00)
[2023-11-08] MEDS ORDERED: Nitroglycerin 0.4 MG SUBL SL PRN (22:35)
--- NOTE | 2023-11-08 23:49 | NUR ---
CHEST PAIN Pt reported sudden onset 9/10 chest pain, midsternal. Reports has had similar episodes at home and has Rx for nitro. BP 122/68, HR 59, EKG completed and Isael Glynn CHEMICAL PROCESSOR notified. New orders for SL Nitro and troponin for 0030. SL nitro administered with improvement of chest pain to 7/10, pt declined additional dose. Pt now reports no chest pain.
[2023-11-09 00:33] LABS: BASOPHILS ABSOLUTE AUTO 0.03 K/mm3 (0.00-0.23); BASOPHILS PERCENT AUTO 0 % (0-2); EOSINOPHILS ABSOLUTE AUTO 0.24 K/mm3 (0.00-0.68); EOSINOPHILS PERCENT AUTO 3 % (0-6); Hematocrit 26.8 % (33.0-51.0); Hemoglobin 8.7 g/dL (11.5-16.0); IMMATURE GRAN ABSOLUTE AUTO 0.04 K/mm3 (0.00-0.10); IMMATURE GRAN PERCENT AUTO 1 % (0-1); LYMPHOCYTES ABSOLUTE AUTO 4.06 K/mm3 (0.84-5.20); LYMPHOCYTES PERCENT AUTO 53 % (21-46); MONOCYTES ABSOLUTE AUTO 0.51 K/mm3 (0.16-1.47); MONOCYTES PERCENT AUTO 7 % (4-13); Mean Corpuscular HGB Conc 32.5 g/dL (31.5-36.5); Mean Corpuscular Volume 102 fL (80-100); Mean Platelet Volume 9.3 fL (9.1-12.4); NEUTROPHILS ABSOLUTE AUTO 2.86 K/mm3 (1.96-9.15); NEUTROPHILS PERCENT AUTO 37 % (41-73); Platelet Count 208 K/mm3 (150-400); RDW Coefficient Variation 13.6 % (11.7-14.2); RDW Standard Deviation 50.8 fL (35.1-46.3); Red Blood Cell Count 2.64 M/mm3 (3.80-5.20); White Blood Cell Count 7.74 K/mm3 (4.00-11.30)
[2023-11-09 00:59] LABS: Bun/Creatinine Ratio 15.6 (12.0-20.0); Calcium, Blood 9.2 mg/dL (8.5-10.1); Creatinine, Blood 1.6 mg/dL (0.40-1.00); Magnesium, Blood 1.5 mg/dL (1.6-2.4); Potassium, Blood 4.7 mmol/L (3.5-5.5)
[2023-11-09 03:35] VITALS: BP 115/65
--- NOTE | 2023-11-09 05:37 | NUR ---
SHIFT SUMMARY Pt rested for a few hours over night. Remains oriented x4, 1 episode of chest pain (see previous note), 1 does SL nitro administered with improvement. Heart rate and blood pressure remain stable. Pt tolerating PO intake, denies issues. NS infusing through peripheral IV.
[2023-11-09] MEDS ORDERED: Levothyroxine Sodium 0.15 MG Tab PO SCH (06:00)
[2023-11-09 07:40] VITALS: BP 141/87
[2023-11-09] MEDS ORDERED: Mag Sulfate 1 GM/D5% 100ML 100 ML IV STA (08:08)
[2023-11-09] MEDS ORDERED: Heparin Sodium,Porcine 5,000 UNIT/0.5 ML SDV SC SCH (09:00)
[2023-11-09] MEDS ORDERED: Allopurinol 100 MG Tab PO SCH (09:00)
[2023-11-09] MEDS ORDERED: Magnesium Oxide 400 MG Tab PO SCH (09:00)
--- NOTE | 2023-11-09 10:19 | NUR ---
AM NOTE this rn assumed care at 0700. vital signs stable. tele sinus rhythm 60-70s. patient is alert and oriented x4. neuro is intact. patient is able to make needs known and uses call light aproopriately. denies pain, chest pain/pressure, or shortness of breath at this time. see shift assessment for further detials. md mcpherson in to see patient and discussed stopping dieurtic d/t fluid loss. orthostatic vitals done. fluids continue to infuse at 100mls/hr. see emar. plan of care is up to date at this time
--- NOTE | 2023-11-09 10:40 | NUR ---
update md melissa in the room to see the patient. possible discharge tomorrow
[2023-11-09 11:15] VITALS: BP 139/86
--- NOTE | 2023-11-09 11:57 | NUR ---
Upon receiving a referral for spiritual care, I visited the patient. She talks about her large family, her fiance and her frustrations with the healthcare system. She explains about her medical goals and her desire to be freed from going to the infusion center 3 days a week. She shares about her khadijah in God and the strength and encouragment that she gains from her prayers. I provided therapeutic listening, theological insights, and prayer. Patient responded well and showed signs of an elevated mood.
[2023-11-09] MEDS ORDERED: OxyCODONE HCL 5 MG TAB PO PRN (13:20)
[2023-11-09 16:19] VITALS: BP 140/82
--- NOTE | 2023-11-09 17:59 | NUR ---
shift summary patient neuro remains intact. vital signs stable. no acute changes this shift. plan remains up to date. see previous notes
[2023-11-09 19:22] VITALS: BP 164/93
--- NOTE | 2023-11-09 22:18 | NUR ---
ASSUMPTION OF CARE: THIS RN ASSUMED CARE OF PT AT APPROX 1900, BEDSIDE REPORT COMPLETED. PT ALERT, ORIENTED X4. SITTING UP IN BED. VSS. NS INFUSING PER EMAR; RAC IV LEAKING AT START OF SHIFT. IV REMOVED, HOSPITAL MONITOR PLACED LOREN IV. LOREN IV INFILTRATED. NS ON STANDBY AT THIS TIME AWAITING ULTRASOUND IV PLACEMENT. NO OTHER NEEDS AT THIS TIME, CALL LIGHT IN REACH.
[2023-11-09 23:44] VITALS: BP 140/73
--- NOTE | 2023-11-10 00:04 | NUR ---
THIS RN TO RESUME CARE FOR PRIMARY NURSE'S BREAK
--- NOTE | 2023-11-10 00:39 | NUR ---
THIS RN REASSUMED CARE OF PT.
[2023-11-10 03:03] VITALS: BP 161/77
[2023-11-10 04:10] LABS: BASOPHILS ABSOLUTE AUTO 0.01 K/mm3 (0.00-0.23); BASOPHILS PERCENT AUTO 0 % (0-2); EOSINOPHILS ABSOLUTE AUTO 0.22 K/mm3 (0.00-0.68); EOSINOPHILS PERCENT AUTO 3 % (0-6); Hematocrit 29.8 % (33.0-51.0); Hemoglobin 9.7 g/dL (11.5-16.0); IMMATURE GRAN ABSOLUTE AUTO 0.03 K/mm3 (0.00-0.10); IMMATURE GRAN PERCENT AUTO 1 % (0-1); LYMPHOCYTES ABSOLUTE AUTO 2.92 K/mm3 (0.84-5.20); LYMPHOCYTES PERCENT AUTO 45 % (21-46); MONOCYTES ABSOLUTE AUTO 0.47 K/mm3 (0.16-1.47); MONOCYTES PERCENT AUTO 7 % (4-13); Mean Corpuscular HGB 32.7 pg (26.0-34.0); Mean Corpuscular HGB Conc 32.6 g/dL (31.5-36.5); Mean Corpuscular Volume 100 fL (80-100); Mean Platelet Volume 9.5 fL (9.1-12.4); NEUTROPHILS ABSOLUTE AUTO 2.84 K/mm3 (1.96-9.15); NEUTROPHILS PERCENT AUTO 44 % (41-73); Platelet Count 244 K/mm3 (150-400); RDW Coefficient Variation 13.3 % (11.7-14.2); RDW Standard Deviation 49.1 fL (35.1-46.3); Red Blood Cell Count 2.97 M/mm3 (3.80-5.20); White Blood Cell Count 6.49 K/mm3 (4.00-11.30)
[2023-11-10 04:35] LABS: Magnesium, Blood 1.7 mg/dL (1.6-2.4)
[2023-11-10 04:53] LABS: Alanine Aminotransfer (ALT/SGP 99 U/L (12-78); Albumin/Globulin Ratio 0.8 (0.8-1.8); Alk Phos 264 U/L (50-136); Anion Gap 11 mmol/L (3-11); Aspartate Aminotrans (AST/SGOT 24 U/L (12-37); Bilirubin, Direct <0.1 mg/dL (0.0-0.3); Bilirubin, Indirect Unable to Calculate mg/dL (0.1-0.7); Bilirubin, Total 0.2 mg/dL (0.1-1.0); Blood Urea Nitrogen 21 mg/dL (8-24); Bun/Creatinine Ratio 15.2 (12.0-20.0); CO2, Blood 20 mmol/L (21-32); Calcium, Blood 8.7 mg/dL (8.5-10.1); Chloride, Blood 111 mmol/L (98-108); Creatinine, Blood 1.38 mg/dL (0.40-1.00); Globulin, Blood 3.9 g/dL (2.2-4.0); Glomerular Filtration Rate 44 (60-); Glucose, Blood 154 mg/dL (70-99); Potassium, Blood 4.2 mmol/L (3.5-5.5); Sodium, Blood 138 mmol/L (136-145); Total Protein, Blood 6.9 g/dL (6.4-8.2)
--- NOTE | 2023-11-10 05:00 | NUR ---
END OF SHIFT NOTE: NO ACUTE EVENTS OVERNIGHT. PT ALERT, ORIENTED X4. ABLE TO CALL APPROPRIATELY & COMMUNICATE NEEDS W/ STAFF. REPORTS INTERMITTENT DIZZINESS AT START OF SHIFT BUT ABLE TO STAND & TRANSFER TO BSC W/O DIZZINESS. HR 70'S, SINUS ON TELE. SBP 140-160'S, NO REPORTED EPISODES OF CHEST PAIN/PRESSURE. SPO2 >95% ON RA, RESPIRATIONS EVEN & UNLABORED. AFEBRILE. C/O BACK PAIN, MEDICATED PER EMAR. NS INFUSING PER ORDERS, PIV PLACED TO R FOREARM. LIGHT YELLOW URINE VOID ON BSC, NO BM'S. REPOSITIONING INDEPENDENTLY. NO OTHER NEEDS AT THIS TIME. CALL LIGHT IN REACH. WILL REPORT TO ONCOMING RN.
[2023-11-10 07:25] VITALS: BP 161/108
[2023-11-10] MEDS ORDERED: AMIT50 PO (11:19)
[2023-11-10] MEDS ORDERED: METO50ER PO (11:20)
--- NOTE | 2023-11-10 12:26 | NUR ---
DISCHARGE: PT D/C PCU 3 @1200 VIA WHEELCHAIR. DISCHARGE INSTRUCTIONS AND EDUCATION PROVIDED. ALL BELONGINGS WITH PT.
== END 2023-11-10 12:00 | disposition home or self-care (01) ==
LOC: ER 13:59 → PCU 14:00
PROVIDERS: Student in an Organized Health Care Education/Training Program; ADMIT Family Medicine
DX: R55 Syncope and collapse (principal); E83.52 Hypercalcemia; I95.9 Hypotension, unspecified; E87.1 Hypo-osmolality and hyponatremia; R07.89 Other chest pain; R79.89 Other specified abnormal findings of blood chemistry; D64.9 Anemia, unspecified; I12.9 Hypertensive chronic kidney disease with stage 1 through stage 4 chronic kidney disease, or unspecified chronic kidney disease; E10.22 Type 1 diabetes mellitus with diabetic chronic kidney disease; N18.32 Chronic kidney disease, stage 3b; E03.9 Hypothyroidism, unspecified; E78.5 Hyperlipidemia, unspecified; Z88.0 Allergy status to penicillin; Z88.1 Allergy status to other antibiotic agents; Z88.2 Allergy status to sulfonamides; Z88.8 Allergy status to other drugs, medicaments and biological substances; Z79.890 Hormone replacement therapy; Z79.899 Other long term (current) drug therapy
CPT/HCPCS: 36415; 70450; 71046; 80048; 80053; 80076; 82306; 82947; 83735; 84100; 84484; 85025; 93005; 93010; 94760; 94762; 96360; 96361; 96372; 96374; 99285-25; A9270; G0378; J1644; J1815; J3475; J7030

== ENCOUNTER 2024-03-30 07:06 | Emergency (ER) | payer OTHER ==
[~2024-03-30] VITALS: Ht 165.1 cm; Wt 110.7 kg
[~2024-03-30 07:06] MED LIST changes: +AMLO10 PO; +Lisinopril2.5 MG; +SENNA LAXATIVE8.6 MG PO; +SITA25T2 PO
[2024-03-30] MEDS ORDERED: DiphenhydrAMINE HCl 50 MG/ML 1ML Vial IV ONE (09:50)
[2024-03-30] MEDS ORDERED: Ketorolac Tromethamine 30mg Vial IV ONE (09:50)
[2024-03-30] MEDS ORDERED: Metoclopramide HCl 5MG / ML 2ML Vial IV ONE (09:50)
[2024-03-30] MEDS ORDERED: Dexamethasone Sod Phos 10 MG/ML 1ML VIAL IV ONE (09:55)
[2024-03-30 10:13] LABS: BASOPHILS ABSOLUTE AUTO 0.02 K/mm3 (0.00-0.23); BASOPHILS PERCENT AUTO 0 % (0-2); EOSINOPHILS ABSOLUTE AUTO 0.19 K/mm3 (0.00-0.68); EOSINOPHILS PERCENT AUTO 2 % (0-6); Hematocrit 30.4 % (33.0-51.0); IMMATURE GRAN ABSOLUTE AUTO 0.04 K/mm3 (0.00-0.10); IMMATURE GRAN PERCENT AUTO 1 % (0-1); LYMPHOCYTES ABSOLUTE AUTO 1.55 K/mm3 (0.84-5.20); LYMPHOCYTES PERCENT AUTO 18 % (21-46); MONOCYTES ABSOLUTE AUTO 0.61 K/mm3 (0.16-1.47); MONOCYTES PERCENT AUTO 7 % (4-13); Mean Corpuscular HGB 32.6 pg (26.0-34.0); Mean Corpuscular HGB Conc 32.9 g/dL (31.5-36.5); Mean Corpuscular Volume 99 fL (80-100); Mean Platelet Volume 9.3 fL (9.1-12.4); NEUTROPHILS ABSOLUTE AUTO 6.23 K/mm3 (1.96-9.15); NEUTROPHILS PERCENT AUTO 72 % (41-73); Platelet Count 216 K/mm3 (150-400); RDW Coefficient Variation 15.7 % (11.7-14.2); RDW Standard Deviation 56.3 fL (35.1-46.3); Red Blood Cell Count 3.07 M/mm3 (3.80-5.20); White Blood Cell Count 8.64 K/mm3 (4.00-11.30)
[2024-03-30 10:40] LABS: Albumin, Blood 3.3 g/dL (3.4-5.0); Albumin/Globulin Ratio 0.9 (0.8-1.8); Bilirubin, Total 0.1 mg/dL (0.1-1.0); Bun/Creatinine Ratio 26.4 (12.0-20.0); Calcium, Blood 8.3 mg/dL (8.5-10.1); Creatinine, Blood 1.06 mg/dL (0.40-1.00); Globulin, Blood 3.5 g/dL (2.2-4.0); Magnesium, Blood 1.3 mg/dL (1.6-2.4); Potassium, Blood 4.2 mmol/L (3.5-5.5); Total Protein, Blood 6.8 g/dL (6.4-8.2)
[2024-03-30] MEDS ORDERED: Labetalol HCL 5 MG/ML 4ML Injection (Single Dose) IV ONE ×2 (11:10→13:45)
[2024-03-30] MEDS ORDERED: HydrALAZINE HCl 20 MG / ML 1ML Vial IV ONE (13:05)
[2024-03-30] MEDS ORDERED: Droperidol 5 mg/2 ml Vial IV ONE (13:05)
[2024-03-30] MEDS ORDERED: ZANAFLEX413 PO (14:54)
[2024-03-30] MEDS ORDERED: TERA5 PO (14:55)
[2024-03-30] MEDS ORDERED: LIPITOR80 MG PO (14:56)
[2024-03-30] MEDS ORDERED: [UNRECOGNIZED DRUG - CODE] PO (14:56)
[2024-03-30] MEDS ORDERED: GLIP10 PO (14:57)
[2024-03-30] MEDS ORDERED: EPITOL200 M2 PO (14:57)
[2024-03-30] MEDS ORDERED: Toprol Xl200 MG (14:58)
[2024-03-30] MEDS ORDERED: Isosorbide Mono10 MG PO (14:58)
[2024-03-30] MEDS ORDERED: Synthroid/Levo0.2 MG PO (14:59)
[2024-03-30 15:15] VITALS: BP 184/89
[2024-03-31] MEDS ORDERED: AmLODIPine Besylate 5 MG Tab PO SCH (09:00)
== END 2024-03-30 15:24 | disposition home or self-care (01) ==
LOC: ER 07:06
PROVIDERS: Family Medicine
DX: G43.909 Migraine, unspecified, not intractable, without status migrainosus (principal); I10 Essential (primary) hypertension; Z88.0 Allergy status to penicillin; Z88.8 Allergy status to other drugs, medicaments and biological substances; Z88.1 Allergy status to other antibiotic agents; Z88.2 Allergy status to sulfonamides; Z79.899 Other long term (current) drug therapy; E11.9 Type 2 diabetes mellitus without complications
CPT/HCPCS: 80053; 83735; 85025; 96374; 96375; 96376; 99283-25; J0360; J1100; J1200; J1790; J1885; J2765

== ENCOUNTER 2024-08-26 08:55 | Inpatient (IN) | payer OTHER ==
[~2024-08-26] VITALS: Ht 162.6 cm; Wt 97.5 kg
[~2024-08-26 08:55] MED LIST changes: +AIRDUO DIGIHAL1 EAC1 INH; +Cardizem LA240 MG PO; +DICLOFENAC SODI50 GM TOP; +EPITOL200 M2 PO; +GUAI600T33 PO; +ISOSORBIDE DINI PO; +Isosorbide Mono10 MG PO; +LEVOTHYROXINE175 MC9 PO; +LIDO700A20 TOP; +LIPITOR80 MG PO; +Seroquel Xr400 MG PO; +Synthroid/Levo0.2 MG PO; +TERA5 PO; +Toprol Xl200 MG; +ZANAFLEX413 PO; +Zofran4 MG PO; +[UNRECOGNIZED DRUG - CODE] PO
[2024-08-26 09:36] LABS: BASOPHILS ABSOLUTE AUTO 0.02 K/mm3 (0.00-0.23); BASOPHILS PERCENT AUTO 1 % (0-2); EOSINOPHILS ABSOLUTE AUTO 0.12 K/mm3 (0.00-0.68); EOSINOPHILS PERCENT AUTO 3 % (0-6); Hematocrit 24.5 % (33.0-51.0); Hemoglobin 8.1 g/dL (11.5-16.0); IMMATURE GRAN ABSOLUTE AUTO 0.02 K/mm3 (0.00-0.10); IMMATURE GRAN PERCENT AUTO 1 % (0-1); LYMPHOCYTES ABSOLUTE AUTO 1.37 K/mm3 (0.84-5.20); LYMPHOCYTES PERCENT AUTO 32 % (21-46); MONOCYTES ABSOLUTE AUTO 0.36 K/mm3 (0.16-1.47); MONOCYTES PERCENT AUTO 9 % (4-13); Mean Corpuscular HGB 34.6 pg (26.0-34.0); Mean Corpuscular HGB Conc 33.1 g/dL (31.5-36.5); Mean Corpuscular Volume 105 fL (80-100); NEUTROPHILS ABSOLUTE AUTO 2.34 K/mm3 (1.96-9.15); NEUTROPHILS PERCENT AUTO 55 % (41-73); Platelet Count 213 K/mm3 (150-400); RDW Coefficient Variation 12.5 % (11.7-14.2); RDW Standard Deviation 47.7 fL (35.1-46.3); Red Blood Cell Count 2.34 M/mm3 (3.80-5.20); White Blood Cell Count 4.23 K/mm3 (4.00-11.30)
[2024-08-26] MEDS ORDERED: CATAPRES0.3 MG PO (09:43)
[2024-08-26] MEDS ORDERED: ZYRTEC10 M2 PO (09:43)
[2024-08-26] MEDS ORDERED: EPIPEN0.3 MG/0.3 IM (09:44)
[2024-08-26] MEDS ORDERED: TIAZAC PO (09:44)
[2024-08-26] MEDS ORDERED: STEGLATRO15 MG PO (09:45)
[2024-08-26] MEDS ORDERED: IPRAT-ALBUT 0.5-3 ML (09:46)
[2024-08-26] MEDS ORDERED: ISOMON20 PO (09:47)
[2024-08-26] MEDS ORDERED: Synthroid200 MCG PO (09:49)
[2024-08-26] MEDS ORDERED: METO100ER PO (09:50)
[2024-08-26] MEDS ORDERED: LISI20 PO (09:50)
[2024-08-26] MEDS ORDERED: NARCAN4 M1 (09:51)
[2024-08-26] MEDS ORDERED: QUET300 PO ×2 (09:54→16:52)
[2024-08-26] MEDS ORDERED: OZEMPIC2 MG/0.75 SC (09:56)
[2024-08-26 10:06] LABS: Albumin, Blood 2.7 g/dL (3.4-5.0); Albumin/Globulin Ratio 0.8 (0.8-1.8); Bilirubin, Total 0.1 mg/dL (0.1-1.0); Bun/Creatinine Ratio 12.6 (12.0-20.0); Calcium, Blood 8.7 mg/dL (8.5-10.1); Creatinine, Blood 1.59 mg/dL (0.40-1.00); Globulin, Blood 3.5 g/dL (2.2-4.0); Magnesium, Blood 2.7 mg/dL (1.6-2.4); Potassium, Blood 4.4 mmol/L (3.5-5.5); Total Protein, Blood 6.2 g/dL (6.4-8.2)
[2024-08-26] MEDS ORDERED: OxyCODONE HCL 5 MG TAB PO ONE (10:30)
[2024-08-26] MEDS ORDERED: OxyCODONE HCL 5 MG TAB PO PRN (15:00)
[2024-08-26] MEDS ORDERED: Ipratropium/Albuterol SulF 2.5-0.5MG/3 ML Amp INH PRN (15:00)
[2024-08-26 16:01] VITALS: BP 132/74
[2024-08-26] MEDS ORDERED: ALBU90OI INH (16:45)
[2024-08-26] MEDS ORDERED: ASPIR 8181 M1 PO (16:46)
[2024-08-26] MEDS ORDERED: BENZ100A PO (16:47)
[2024-08-26] MEDS ORDERED: Flonase 0.05% N16 GM (16:49)
[2024-08-26] MEDS ORDERED: METO10 PO (16:51)
[2024-08-26] MEDS ORDERED: Insulin Regular 100 UNIT/ML 10ML Vial SC SCH ×2 (17:10→18:00)
[2024-08-26] MEDS ORDERED: Albuterol HFA200 ACT/6.7 GM INH INH PRN (17:20)
--- NOTE | 2024-08-26 18:01 | NUR ---
SHIFT SUMMARY PT A NEW ADMIT THIS EVENING, AOX4. SBA TO THE BSC. NO ACUTE EVENTS SINCE THE ADMIT. PICTURES OF SACRUM WOUND IN CHART. FAMILY AT THE BS. NO COMPLAINTS BY THE PT SINCE THE ADMIT. SHE STATED RELIEF FROM THE DIZZINESS, MUCH IMPROVED WHILE MOBILE. REPOSITIONS SELF IN BED. CALL LIGHT WITHIN REACH, BED LOCKED AND IN THE LOWEST POSITION. WILL REPORT TO ONCOMING NURSE.
[2024-08-26] MEDS ORDERED: Amiodarone HCl 50 MG / ML 3 ML Amp IV ONE (18:22)
[2024-08-26] MEDS ORDERED: Magnesium Sulfate 500 MG / ML 2ML Vial XX ONE (18:22)
--- NOTE | 2024-08-26 18:42 | NUR ---
NOTE: NOTIFIED BY TELE OF THE PT'S EXPERIENCING A SECOND DEGREE AV BLOCK TYPE 1. STRIP UPLOADED IN THE CHART, DR. MARLOW NOTIFIED. NO NEW ORDERS AT THIS TIME. PT APPEARS ASYMPTOMATIC.
[2024-08-26 19:30] VITALS: BP 132/79
[2024-08-26] MEDS ORDERED: CarBAMazepine 200 MG Tab PO SCH (21:00)
[2024-08-26 23:10] VITALS: BP 126/77
[2024-08-27 03:18] VITALS: BP 128/81
--- NOTE | 2024-08-27 04:04 | NUR ---
SHIFT SUMMARY PATIENT HAD NO ACUTE CHANGES. ALERT ORIENTED AND SBA TO BSC. REPORTED BACK/NECK PAIN X ONE AND OXYCODONE 10 MG GIVEN PER EMAR. DENIES CHEST PAIN, SOB, AND N/V. VSS/AFEBRILE. TELE MONITOR SB 59 W/2ND DEGREE AV BLOCK. PIV INTACT. CBG 121. SLEPT MOST OF THE SHIFT. CALL LIGHT IN REACH. BED IN LOWEST POSITION. WILL CONTINUE TO MONITOR UNTIL DAY SHIFT NURSE ASSUMES CARE.
[2024-08-27] MEDS ORDERED: Levothyroxine Sodium 0.1 MG Tab PO SCH (06:00)
[2024-08-27 07:57] VITALS: BP 148/79
[2024-08-27] MEDS ORDERED: Allopurinol 100 MG Tab PO SCH (09:00)
[2024-08-27] MEDS ORDERED: Aspirin 81 MG TabEC PO SCH (09:00)
[2024-08-27] MEDS ORDERED: Lisinopril 20 MG Tab PO SCH (09:00)
[2024-08-27] MEDS ORDERED: Enoxaparin 40 MG/0.4 ML SYR SC SCH (09:00)
[2024-08-27] MEDS ORDERED: Atorvastatin 40 MG Tab PO SCH (09:00)
[2024-08-27 09:20] LABS: BASOPHILS ABSOLUTE AUTO 0.02 K/mm3 (0.00-0.23); BASOPHILS PERCENT AUTO 0 % (0-2); EOSINOPHILS ABSOLUTE AUTO 0.13 K/mm3 (0.00-0.68); EOSINOPHILS PERCENT AUTO 3 % (0-6); Hematocrit 30.6 % (33.0-51.0); Hemoglobin 10.1 g/dL (11.5-16.0); IMMATURE GRAN ABSOLUTE AUTO 0.04 K/mm3 (0.00-0.10); IMMATURE GRAN PERCENT AUTO 1 % (0-1); LYMPHOCYTES ABSOLUTE AUTO 1.62 K/mm3 (0.84-5.20); LYMPHOCYTES PERCENT AUTO 34 % (21-46); MONOCYTES ABSOLUTE AUTO 0.29 K/mm3 (0.16-1.47); MONOCYTES PERCENT AUTO 6 % (4-13); Mean Corpuscular HGB 34.6 pg (26.0-34.0); Mean Corpuscular Volume 105 fL (80-100); Mean Platelet Volume 9.1 fL (9.1-12.4); NEUTROPHILS ABSOLUTE AUTO 2.67 K/mm3 (1.96-9.15); NEUTROPHILS PERCENT AUTO 56 % (41-73); Platelet Count 255 K/mm3 (150-400); RDW Coefficient Variation 11.9 % (11.7-14.2); RDW Standard Deviation 46.6 fL (35.1-46.3); Red Blood Cell Count 2.92 M/mm3 (3.80-5.20); White Blood Cell Count 4.77 K/mm3 (4.00-11.30)
[2024-08-27 09:50] LABS: Albumin, Blood 3.2 g/dL (3.4-5.0); Anion Gap 10 mmol/L (3-11); Blood Urea Nitrogen 18 mg/dL (8-24); Bun/Creatinine Ratio 12.1 (12.0-20.0); CO2, Blood 26 mmol/L (21-32); Calcium, Blood 8.9 mg/dL (8.5-10.1); Chloride, Blood 101 mmol/L (98-108); Creatinine, Blood 1.49 mg/dL (0.40-1.00); Ferritin, Serum 99 ng/mL (8-252); Glomerular Filtration Rate 40 (60-); Glucose, Blood 155 mg/dL (70-99); Iron Serum 138 ug/dL (50-170); Magnesium, Blood 2.3 mg/dL (1.6-2.4); Percent Saturation 46.5 % (15.0-50.0); Phosphorus, Blood 3.7 mg/dL (2.5-4.9); Potassium, Blood 4.6 mmol/L (3.5-5.5); Sodium, Blood 132 mmol/L (136-145); Total Iron Binding Capacity 297 ug/dL (250-450)
--- NOTE | 2024-08-27 10:13 | NUR ---
NOTE: PT BELIEVED SHE HAD WOUND CARE ORDERS AT THE [facility]. THIS NURSE FAXED THE CLINIC FOR ORDERS. THE WOUND CLINIC RESPONDED WITH SAYING THE PT HAS YET TO BE SEEN AT THEIR FACILITY. DR. MARLOW NOTIFIED SO WOUND ORDERS COULD BE OBTAINED. HE SAID HE WOULD ASSESS AND PUT ORDERS IN IF NECESSARY. FOR NOW, THIS NURSE CLEANED AND DRESSED THE WOUND WITH A MEPALEX.
[2024-08-27] MEDS ORDERED: Ondansetron 4 MG SoluTab MM PRN (11:40)
[2024-08-27 12:13] VITALS: BP 170/95
[2024-08-27 13:10] VITALS: BP 153/84
[2024-08-27] MEDS ORDERED: Metoclopramide HCl 5MG / ML 2ML Vial IV PRN ×2 (13:15→22:00)
[2024-08-27] MEDS ORDERED: HydrALAZINE HCl 20 MG / ML 1ML Vial IV PRN ×2 (13:20→16:30)
[2024-08-27] MEDS ORDERED: HydroCHLOROthiazide 25 mg Tab PO SCH (14:00)
[2024-08-27] MEDS ORDERED: MetroNIDAZOLE 500 MG Tab PO SCH (14:00)
[2024-08-27 15:53] VITALS: BP 176/84
[2024-08-27] MEDS ORDERED: Metoclopramide HCl 5MG / ML 2ML Vial IV ONE (16:30)
[2024-08-27] MEDS ORDERED: Promethazine HCl 25 MG Tab PO PRN (17:35)
[2024-08-27] MEDS ORDERED: Promethazine HCl 25 MG Supp PR ONE (17:45)
[2024-08-27] MEDS ORDERED: Morphine Sulfate 4 MG/1 ML Injection IV ONE (17:45)
--- NOTE | 2024-08-27 18:08 | NUR ---
SHIFT SUMMARY PT AOX4, IND TO BSC, SBA TO THE BR. CALLS AND MAKES NEEDS KNOWN. NO EVENTS MOST OF THE SHIFT, NO DIZZINESS UNTIL LATER IN THE SHIFT. THE PT HAS HAD VOMITING AND NAUSEA, SHE ALSO ENDORSES PAIN. DR. MARLOW NOTIFIED AND SHE WAS MEDICATED PER THE EMAR. SHE STATES SOME RELIEF NOW. REPOSITIONS SELF IN BED. CALL LIGHT WITHIN REACH, BED IN THE LOWEST POSITION. WILL REPORT TO ONCOMING NURSE.
[2024-08-27 19:37] VITALS: BP 160/90
[2024-08-27] MEDS ORDERED: Prochlorperazine Edisylate 10 mg Vial IV ONE (20:45)
[2024-08-28] VITALS (33 sets, daily range): BP systolic 126–207; BP diastolic 77–125
[2024-08-28] MEDS ORDERED: LORazepam 2 MG/ML 1ML Injection IV ONE (03:15)
[2024-08-28 05:28] LABS: Hematocrit 32.1 % (33.0-51.0); Hemoglobin 11.1 g/dL (11.5-16.0); Mean Corpuscular HGB 34.6 pg (26.0-34.0); Mean Corpuscular HGB Conc 34.6 g/dL (31.5-36.5); Mean Platelet Volume 9.2 fL (9.1-12.4); Platelet Count 314 K/mm3 (150-400); RDW Coefficient Variation 12.1 % (11.7-14.2); RDW Standard Deviation 44.4 fL (35.1-46.3); Red Blood Cell Count 3.21 M/mm3 (3.80-5.20); White Blood Cell Count 8.93 K/mm3 (4.00-11.30)
[2024-08-28 05:29] LABS: Mean Corpuscular Volume 100 fL (80-100)
[2024-08-28 05:52] LABS: Bun/Creatinine Ratio 12.8 (12.0-20.0); Calcium, Blood 9.7 mg/dL (8.5-10.1); Creatinine, Blood 1.56 mg/dL (0.40-1.00); Potassium, Blood 3.9 mmol/L (3.5-5.5)
[2024-08-28] MEDS ORDERED: DiphenhydrAMINE HCl 50 MG/ML 1ML Vial IV PRN (08:05)
[2024-08-28] MEDS ORDERED: AmLODIPine Besylate 5 MG Tab PO SCH (09:00)
[2024-08-28 09:41] LABS: Free Thyroxine 1.37 ng/dL (0.70-1.60)
[2024-08-28 09:42] LABS: Thyroid Stimulating Hormone 0.046 uIU/mL (0.360-4.800)
[2024-08-28] MEDS ORDERED: NS 1,000 ML IV SCH (09:55)
[2024-08-28] MEDS ORDERED: Scopolamine Hydrobromide Patch TOP ONE (09:55)
[2024-08-28] MEDS ORDERED: Ondansetron HCl 2 MG / ML 2ML Vial IV PRN (10:25)
[2024-08-28] MEDS ORDERED: Calcium Carbonate 500 MG Tab Chew PO PRN ×2 (11:40→11:55)
[2024-08-28] MEDS ORDERED: Mag Hydrox/Al Hydrox/Simeth 18 ML,Lidocaine 2% Viscous Soln 9 ML,Atropine/Scopalam/Hyos... PO ONE ×2 (15:40→21:05)
[2024-08-28] MEDS ORDERED: Morphine Sulfate 4 MG/1 ML Injection ONE (16:34)
[2024-08-28] MEDS ORDERED: Nitroglycerin 0.4 MG SUBL ONE ×2 (16:34)
[2024-08-28] MEDS ORDERED: Aspirin 81 MG Chew ONE (16:39)
[2024-08-28] MEDS ORDERED: NS 250 ML IV ONE (16:42)
[2024-08-28] MEDS ORDERED: Heparin Sodium 1000 Units/ML 10ML MDV ONE (16:42)
[2024-08-28] MEDS ORDERED: NS 1,000 ML IV ONE ×2 (16:42→16:49)
[2024-08-28] MEDS ORDERED: Verapamil HCL 2.5 MG/ML 2ML Injection ONE (16:42)
[2024-08-28] MEDS ORDERED: Clopidogrel Bisulfate 300 MG TABLET PO ONE (16:45)
[2024-08-28] MEDS ORDERED: Hydrocortisone Sod Succinate 100 MG Vial ONE (16:48)
[2024-08-28] MEDS ORDERED: DiphenhydrAMINE HCl 50 MG/ML 1ML Vial ONE (16:48)
[2024-08-28] MEDS ORDERED: Famotidine 10 MG/ML 2ML Vial ONE (16:48)
[2024-08-28] MEDS ORDERED: Midazolam HCl 1MG / ML 2ML Vial ONE (16:49)
[2024-08-28] MEDS ORDERED: FentaNYL Citrate 50 MCG/ML 2 ML Injection ONE ×2 (16:49→17:08)
[2024-08-28] MEDS ORDERED: Ondansetron HCl 2 MG / ML 2ML Vial ONE ×2 (17:00→17:06)
--- NOTE | 2024-08-28 17:00 | NUR ---
SHIFT SUMMARY AND TRANSFER TO HEART CENTER PATIENT ALERT AND INTERACTIVE. PATIENT HAVING NAUSEA AND VOMITING THROUGHOUT THE DAY. PATIENT MEDICATED WITH VARIOUS MEDICATIONS TO TRY AND HELP NAUSEA AND VOMITTING WITH NOT SIGNIFICANT RESULTS. PATIENT DEVELOPED EPIGASTRIC PAIN AND GENERALIZED CHEST DISCOMFORT AT 1530. DR MARLOW NOTIFIED. EKG DONE AND GI COCKTAIL GIVEN. REASSESSING FOR GI COCKTAIL AND WAS CONTACTED BY [facility] STATING PATIENT HAVING EKG CHANGES. REPEAT EKG DONE AT 1635. SIGNIFICANT EKG CHANGES NOTED AND PATIENT CONTINUING TO HAVE CHEST PAIN. RAPID RESPONSE CALLED. DR. MARLOW PRESENT. CARDIOLOGY CONSULTED AND PATIENT TAKEN TO SURGICAL GARMENT FITTER. FAMILY NOTIFIED OF EVENT. PATIENT TO GO TO ICU AFTER SURGICAL GARMENT FITTER.
[2024-08-28] MEDS ORDERED: NS 100 ML IV ONE (17:01)
[2024-08-28] MEDS ORDERED: Atropine Sulfate 0.1 MG/ML 10ML SYR ONE (17:13)
[2024-08-28] MEDS ORDERED: Phenylephrine HCl 100 MCG/ML-NS 10MLSYR (1MG/10ML) ONE (17:13)
[2024-08-28] MEDS ORDERED: Tirofiban HCL Monohydrate 3.75 MG/15 ML Vial ONE (17:13)
[2024-08-28] MEDS ORDERED: Heparin Sodium,Porcine 5,000 UNIT/0.5 ML SDV SC ONE (17:17)
[2024-08-28] MEDS ORDERED: AmLODIPine Besylate 5 MG Tab PO ONE (17:40)
--- NOTE | 2024-08-28 17:47 | NUR ---
"Spiritual Care | Rapid Response Pt. is experiencing a cardiac event. This recording studio intern is assign to contact the family. Call is made. Upon arrival this recording studio intern escorted the Pts. son and his spouse to the laborer carpentry dock waiting room. A phone call was attempte to the Pts. spouse, though the spouse did not answer. [place] availabel to the Pt. and family."
[2024-08-28] MEDS ORDERED: Diltiazem HCl 300 MG Cap.CD PO SCH (18:00)
[2024-08-28] MEDS ORDERED: Isosorbide Mononitrate 60 MG TABCR PO SCH (18:00)
[2024-08-28] MEDS ORDERED: FentaNYL Citrate 50 MCG/ML 2 ML Injection IV PRN (18:15)
[2024-08-28] MEDS ORDERED: Levothyroxine Sodium 100 MCG Vial IV SCH (19:00)
[2024-08-28] MEDS ORDERED: Diltiazem HCl 300 MG Cap.CD PO ONE (19:05)
--- NOTE | 2024-08-28 19:17 | NUR ---
Assumed care of pt at 1746 on arrival from laboratory phlebotomist after having a rapid response on medical floor. On arrival, pt has R angiogram access site to ulnar artery. SpO2 probe placed to R hand. Patient reports equal sensation BUE/BLE. Pt also reported 9/10 chest pain. Pointed to sternal area as source and stated that it is worse when she takes a deep breath. Call placed to Dr Goldberg to update. Provider ordered a CT Chest to r/o PE. Stated no additional premedication for iodine allergy was necessary as pt was premedicated before laboratory phlebotomist. Updated Dr Reddy on plan of care. On arrival back from CT, noted that pt was hypertensive. Discussed with Dr Reddy who ordered additional dose of PO cardizem to be given. Report given to Wesley CASON and Rosa M CASON.
--- NOTE | 2024-08-28 20:07 | NUR ---
ASSESSMENT ASSUMED CARE: ASSUMED CARE AT START OF SHIFT. PT IS A&OX4 GCS15 AWAKE AND SITTING IN BED AND EXPEIRENCING 9/10 EPIGASTIC/BACK PAIN AT THIS TIME AND MEDICATED PER EMR. PT HAS PERIPHERAL IV'S IN BOTH ARMS THAT ARE FLUSHING WELL BUT UNABLE TO DRAW BLOOD FROM THEM. RESPIRATORY RATE IS EVLATED AROUND 30'S WITH FRUITY SMELL TO THEIR BREATH, SPO2 95% ON RA. HAS SOB WITH ACTIVIY AND LUNG SOUNDS ARE CLEAR AND EQUAL BILATERALLY. HR 120S AND SINUS TACH, BP ELEVATED BUT RECEIVED CARDIZEM PER EMR. TR BAND ON RIGHT WRIST, NO BLEEDING OR HEMTOMA, NO NUMBNESS/TINGLING TO FINGERS AND BRISK CAP REFILL. NOTED AND BALLOON INFLATE WITH 12CC AIR. ARM BOARD IN PLACE. ABLE TO STAND AND PIVOT FROM BED TO BEDSIDE COMMODE AND VOIDED CLEAR/YELLOW URINE. WILL CALL THE HOSPITALIST REGARDING LABS, PAIN, NAUSEA. CALL LIGHT WAS PLACED WITHIN REACH OF PATIENT AND THEY WERE TOLD TO PRESS THE BUTTON IF THEY NEED ANY ASSISTANCE.
[2024-08-28] MEDS ORDERED: LORazepam 2 MG/ML 1ML Injection IV PRN (21:05)
--- NOTE | 2024-08-28 21:05 | NUR ---
HOSPITALIST NOTIFICATION CALL TO ANGELO ALICEA HOSPITALIST REGARDING NAUSEA, PAIN, ELEVATED RESP RATE, FRUITY BREATH, BLOOD GLUSOSE 232, AND HEART RATE 126. SEE NEW ORDERS
[2024-08-28 21:45] LABS: Bicarbonate Venous 21.3 mmol/L (24.0-30.0); PCO2 Venous 24.6 mmHg (38-42); pH Blood Venous 7.48 (7.34-7.37)
--- NOTE | 2024-08-28 22:09 | NUR ---
TR BAND 2CC AIR REMOVED FROM TR BAND FROM RIGHT WRIST. SITE STABLE, NO BLEEDING OR HEMOTOMA. PT MED WITH ATIVAN FOR NAUSEA AND GI COCKTAIL FOR EPIGASTRIC PAIN. POWERGLIDE PLACE IN LEFT UPPER ARM.
[2024-08-28 22:10] LABS: Bun/Creatinine Ratio 16.2 (12.0-20.0); Creatinine, Blood 1.3 mg/dL (0.40-1.00); Potassium, Blood 3.3 mmol/L (3.5-5.5)
--- NOTE | 2024-08-28 22:23 | NUR ---
CALL TO HOSPITALIST CALL TO ANGELO ALICEA REGARDING BNP AND VBG. ORDER OBTAINED FOR LACTIC ACID AND BHB
[2024-08-28] MEDS ORDERED: D5W-1/2NS 1,000 ML IV SCH (23:40)
[2024-08-28] MEDS ORDERED: Insulin Human Regular 100 UNIT in NS 100 ML IV SCH (23:40)
--- NOTE | 2024-08-28 23:42 | NUR ---
CALL TO HOSPITIALIST CALL TO ANGELO ALICEA HOSPITALIST REGARDING LABS. SEE NEW ORDERS. WILL START INSULIN GTT. EXPLAINED TO PT. 2 CC AIR REMOVED FROM TR BAND. NO HEMATOMA OR BLEEDING NOTED
[2024-08-29] VITALS (58 sets, daily range): BP systolic 95–156; BP diastolic 65–125
[2024-08-29 02:50] LABS: BASOPHILS ABSOLUTE AUTO 0.02 K/mm3 (0.00-0.23); BASOPHILS PERCENT AUTO 0 % (0-2); EOSINOPHILS PERCENT AUTO 0 % (0-6); Hematocrit 28.7 % (33.0-51.0); Hemoglobin 10.3 g/dL (11.5-16.0); IMMATURE GRAN ABSOLUTE AUTO 0.11 K/mm3 (0.00-0.10); IMMATURE GRAN PERCENT AUTO 1 % (0-1); LYMPHOCYTES PERCENT AUTO 12 % (21-46); MONOCYTES ABSOLUTE AUTO 1.18 K/mm3 (0.16-1.47); MONOCYTES PERCENT AUTO 8 % (4-13); Mean Corpuscular HGB 35.5 pg (26.0-34.0); Mean Corpuscular HGB Conc 35.9 g/dL (31.5-36.5); Mean Corpuscular Volume 99 fL (80-100); Mean Platelet Volume 9.2 fL (9.1-12.4); NEUTROPHILS ABSOLUTE AUTO 11.13 K/mm3 (1.96-9.15); NEUTROPHILS PERCENT AUTO 79 % (41-73); NRBC ABSOLUTE 0.06 K/mm3 (0.00-0.02); NRBC Auto 0.4 /100 WBC (0.0-0.2); Platelet Count 307 K/mm3 (150-400); RDW Coefficient Variation 12.6 % (11.7-14.2); RDW Standard Deviation 45.5 fL (35.1-46.3); White Blood Cell Count 14.14 K/mm3 (4.00-11.30)
[2024-08-29 03:08] LABS: Albumin, Blood 3.4 g/dL (3.4-5.0); Albumin/Globulin Ratio 0.8 (0.8-1.8); Bilirubin, Total 0.2 mg/dL (0.1-1.0); Bun/Creatinine Ratio 14.5 (12.0-20.0); Calcium, Blood 8.8 mg/dL (8.5-10.1); Creatinine, Blood 1.31 mg/dL (0.40-1.00); Magnesium, Blood 2.1 mg/dL (1.6-2.4); Potassium, Blood 2.8 mmol/L (3.5-5.5); Total Protein, Blood 7.4 g/dL (6.4-8.2)
--- NOTE | 2024-08-29 03:16 | NUR ---
CALLED MD CALLED LABS TO DR DOMINIQUE. MEGHAN RECIEVED, STOP INSULIN WHILE POTASSIUM INFUSING. BMP AFTER POTASSIUM STARTED.
[2024-08-29] MEDS ORDERED: Potassium Chl 20MEQ/Water100ML 100 ML IV SCH (04:00)
[2024-08-29] MEDS ORDERED: NS 250 ML IV PRN (04:00)
[2024-08-29] MEDS ORDERED: NS 500 ML IV ONE (04:01)
[2024-08-29] MEDS ORDERED: NS 500 ML IV SCH (04:10)
--- NOTE | 2024-08-29 04:41 | NUR ---
NOTIFED PT COMPLAINING OF "CHEST PAIN" BUT POINT TO THE EPIGASTRIC AREA AND BACK PAIN. DR. DOMINIQUE NOTIFIED, PT HAS RECIEVED FENTANYL, OXY, AND ATIVAN. NEW ORDER FOR GI COCKTAIL OBTAINED.
[2024-08-29] MEDS ORDERED: Mag Hydrox/Al Hydrox/Simeth 18 ML,Lidocaine 2% Viscous Soln 9 ML,Atropine/Scopalam/Hyos... PO ONE (05:00)
--- NOTE | 2024-08-29 06:06 | NUR ---
SHIFT SUMMARY: PT WAS MED WITH FENTANYL AND OXY FOR PAIN WITH MODERATE CONTROL. GIVEN A GI COCKTAIL 2 THROUGHOUT THE NIGHT FOR EPIGASTRIC PAIN. MED WITH ATIVAN FOR NAUSEA. PT STARTED ON INSULIN DRIP DUE TO DKA AND CURRENTLY IS ON STANDBY WHILE POTASSIUM IN INFUSING. NEXT LABS ARE SCHEDULED FOR 0800. POWERGLIDE WAS PLACED IN LEFT UPPER ARM. R WIRST TRB RECOVERED AND STABLE, NO HEMOTOMA/BLEEDING. ARM BOARD IS IN PLACE AND PT HAS BEEN INSTRUCTED NOT TO USE RIGHT ARM FOR 2-3 DAYS. REPORT TO ON COMING NURSE, CONTINUE TO MONITOR.
[2024-08-29] MEDS ORDERED: AmLODIPine Besylate 5 MG Tab PO SCH ×2 (09:00→10:00)
[2024-08-29] MEDS ORDERED: Diltiazem HCl 180 MG Cap.CD PO SCH (09:00)
[2024-08-29 11:38] LABS: Magnesium, Blood 2.2 mg/dL (1.6-2.4)
[2024-08-29 11:42] LABS: Bun/Creatinine Ratio 15.9 (12.0-20.0); Calcium, Blood 8.9 mg/dL (8.5-10.1); Creatinine, Blood 1.32 mg/dL (0.40-1.00); Potassium, Blood 3.9 mmol/L (3.5-5.5)
--- NOTE | 2024-08-29 11:55 | NUR ---
Pt. is awake in bed when she welcomed my visit. Pt. is pleasant and quickly grabbed this edging machine feeder's hand. As we were facilitating a life review we considered matters of khadijah and belief. The Pt. reminined this edging machine feeder that I had agreed to her and her when she was previously admitted. With a great smile she proudly showed this edging machine feeder her ring. Considered matters of her family, Prayed witrh the Pt. Pt. verbalized gratitude for the spiritual care support that had been given the previous day as well as prayer today.
--- NOTE | 2024-08-29 14:45 | NUR ---
RAYMOND HAS BEEN FAIRLY EMOTIONAL THIS LATE MORNING, EARLY AFTERNOON. SHE ENDED UP FALLING ASLEEP AROUND 1400 AND SHE BEGAN TO DROP HER SATS TO THE HIGH 80S. 2L NC PLACED ON PATIENT FOR SLEEP. ENCOURAGED TO CONTINUE TO REST SHE HAS BEEN FULL OF ANXIOUS THOUGHTS ALL DAY. ECHO HAS BEEN COMPLETED, TROPONIN LEVELS REPORTED TO . AWAIT FURTHER ORDERS.
[2024-08-29] MEDS ORDERED: Insulin Regular 100 UNIT/ML 10ML Vial SC SCH (18:00)
--- NOTE | 2024-08-29 18:12 | NUR ---
RAYMOND HAS BEEN EMOTIONAL ALL DAY, SHE HAS BEEN TEARFUL THE LAST HALF HOUR SHE LEARNED HER HAS FALLEN AND THIS CAUSES HER DISTRESS, SHE SAYS SHE IS THE ONE WHO CARES FOR HIM. SHE WAS MORE VISIBLY HAPPY AFTER A VISIT FROM HER SON AND DAUGHTER IN [place]. SHE HAS NOT BEEN MEDICATED FOR A FEW HOURS FOR ANY CHEST PAIN. SHE HAS REMAINED OFF THE INSULIN GTT, MULTIPLE CALLS TO DR. MARLOW THIS SHIFT IN REGARDS TO HER LAB VALUES AND INSULIN COVERAGE. PT HAS BEEN UP TO THE BSC WITH GOOD URINE OUTPUT. POOR INTAKE, HAS HAD A COUPLE OF CARTONS OF MILK, SOME SOUP AND SOME SALTINE CRACKERS.
--- NOTE | 2024-08-29 20:35 | NUR ---
ASSUMPTION OF CARE ASSUMED CARE OF PATIENT AROUND 1900, BEDSIDE SHIFT REPORT RECEIVED FROM DEANGELO RN. PT RESTING IN BED, ALERT AND ORIENTED X4, ANSWERS QUESTIONS APPROPRIATELY, FOLLOWS DIRECTION WHEN PROMPTED AND IS ABLE TO MAKE HER NEEDS KNOWN. PT MOVES EXTREMITIES EQUALLY BILATERALLY. PT TEARFUL AND ANXIOUS AT TIMES. PT MEDICATED PER EMAR FOR 9/10 BACK/NECK PAIN THAT SHE STATES IS CHRONIC FOR HER. HR 100-110'S SINUS, MAP >65. PT COMPLAINING OF 8/10 MID STERNAL CP, MEDICATED PER EMAR. PT ON 2LPM VIA NC, OXYGEN SATURATION >95%. ABDOMEN SOFT, BOWEL TONES HYPOACTIVE. PT COMPLAINING OF NAUSEA, MEDICATED PER EMAR. PT AMBULATES TO BEDSIDE COMMODE TO VOID. PIV IN PLACE TO RAC SL, POWERGLIDE IN PLACE TO ANTHONY SL. BED IN LOWEST POSITION, CALL LIGHT WITHIN REACH, CARE CONTINUES.
[2024-08-29] MEDS ORDERED: Morphine Sulfate 4 MG/1 ML Injection IV PRN (23:15)
[2024-08-30] VITALS (19 sets, daily range): BP systolic 91–121; BP diastolic 54–78
--- NOTE | 2024-08-30 00:21 | NUR ---
PT UPDATE PT COMPLAINING OF 8-9/10 MID STERNAL/EPIGASTRIC CP, MEDICATED PER EMAR WITH MINIMAL EFFECT. CALL PLACED TO HOSPITALIST REGUARDING THIS. CARE CONTINUES.
--- NOTE | 2024-08-30 00:48 | NUR ---
PT UPDATE PT CONTINUES TO HAVE 9/[address] DOMINIQUE CALLED, ORDER RECEIVED FOR EKG, DR. DOMINIQUE TO COME TO BEDSIDE FOR EVALUATION. CARE CONTINUES.
[2024-08-30] MEDS ORDERED: Mag Hydrox/Al Hydrox/Simeth 18 ML,Lidocaine 2% Viscous Soln 9 ML,Atropine/Scopalam/Hyos... PO ONE (01:10)
--- NOTE | 2024-08-30 01:10 | NUR ---
PT UPDATE DR. DOMINIQUE AT BEDSIDE FOR EVALUATION. DR. DOMINIQUE SPOKE WITH DR. FERMIN ORDER FOR GI COCKTAIL RECEIVED. CARE CONTINUES.
[2024-08-30 01:38] LABS: Albumin, Blood 3.1 g/dL (3.4-5.0); Albumin/Globulin Ratio 0.8 (0.8-1.8); Bilirubin, Total 0.3 mg/dL (0.1-1.0); Bun/Creatinine Ratio 16.9 (12.0-20.0); Calcium, Blood 8.4 mg/dL (8.5-10.1); Creatinine, Blood 1.42 mg/dL (0.40-1.00); Globulin, Blood 3.7 g/dL (2.2-4.0); Magnesium, Blood 1.8 mg/dL (1.6-2.4); Potassium, Blood 3.5 mmol/L (3.5-5.5); Total Protein, Blood 6.8 g/dL (6.4-8.2)
[2024-08-30 03:39] LABS: BASOPHILS ABSOLUTE AUTO 0.03 K/mm3 (0.00-0.23); BASOPHILS PERCENT AUTO 0 % (0-2); EOSINOPHILS ABSOLUTE AUTO 0.12 K/mm3 (0.00-0.68); EOSINOPHILS PERCENT AUTO 1 % (0-6); Hematocrit 27.2 % (33.0-51.0); Hemoglobin 9.3 g/dL (11.5-16.0); IMMATURE GRAN ABSOLUTE AUTO 0.08 K/mm3 (0.00-0.10); IMMATURE GRAN PERCENT AUTO 1 % (0-1); LYMPHOCYTES ABSOLUTE AUTO 3.36 K/mm3 (0.84-5.20); LYMPHOCYTES PERCENT AUTO 24 % (21-46); MONOCYTES ABSOLUTE AUTO 1.31 K/mm3 (0.16-1.47); MONOCYTES PERCENT AUTO 10 % (4-13); Mean Corpuscular HGB 35.8 pg (26.0-34.0); Mean Corpuscular HGB Conc 34.2 g/dL (31.5-36.5); Mean Platelet Volume 9.3 fL (9.1-12.4); NEUTROPHILS ABSOLUTE AUTO 8.95 K/mm3 (1.96-9.15); NEUTROPHILS PERCENT AUTO 65 % (41-73); NRBC ABSOLUTE 0.03 K/mm3 (0.00-0.02); NRBC Auto 0.2 /100 WBC (0.0-0.2); Platelet Count 247 K/mm3 (150-400); RDW Coefficient Variation 12.7 % (11.7-14.2); RDW Standard Deviation 48.6 fL (35.1-46.3); White Blood Cell Count 13.85 K/mm3 (4.00-11.30)
[2024-08-30 03:41] LABS: Mean Corpuscular Volume 105 fL (80-100)
[2024-08-30 03:55] LABS: Albumin, Blood 3.1 g/dL (3.4-5.0); Anion Gap 9 mmol/L (3-11); Blood Urea Nitrogen 24 mg/dL (8-24); Bun/Creatinine Ratio 16.8 (12.0-20.0); CO2, Blood 27 mmol/L (21-32); Calcium, Blood 8.3 mg/dL (8.5-10.1); Chloride, Blood 104 mmol/L (98-108); Creatinine, Blood 1.43 mg/dL (0.40-1.00); Glomerular Filtration Rate 42 (60-); Glucose, Blood 184 mg/dL (70-99); Phosphorus, Blood 1.8 mg/dL (2.5-4.9); Potassium, Blood 3.8 mmol/L (3.5-5.5); Sodium, Blood 136 mmol/L (136-145)
[2024-08-30] MEDS ORDERED: Potassium Phosphate Dibasic 20 MM in Dextrose 5% 500 ML IV ONE (05:45)
--- NOTE | 2024-08-30 06:23 | NUR ---
SHIFT SUMMARY PT CONTINUES TO REST IN BED, ALERT AND ORIENTED X4. PT ANSWERS QUESTIONS APPROPRIATLEY, FOLLOWS DIRECTION WHEN PROMPTED AND IS ABLE TO MAKE HER NEEDS KNOWN. PT MOVES EXTREMITIES EQUALLY BILATERALLY, AMBULATES TO BEDSIDE COMMODE TO VOID WITH MINIMAL ASSISTANCE. PT COMPLAINING OF PAIN IN HER BACK, MEDCIATED PER EMAR. HR 70-110'S SINUS, MAP >65. PT COMPLAINING OF 8-9/10 MID STERNAL CP THIS SHIFT, MEDICATED PER EMAR, PAIN NOW IMPROVED. PT ON 2LPM VIA NC WHILE SLEEPING, OXYGEN SATURATION >95%. ABDOMEN SOFT, BOWEL TONES ACTIVE THROUGHOUT, PT COMPLAINING OF NAUSEA AT THE BEGINNING OF THE SHIFT, IMPROVED AT THIS TIME. PIV IN PLACE TO RAC, POWERGLIDE IN PLACE TO ANTHONY SL. BED IN LOWEST POSITION, CALL LIGHT WITHIN REACH, CARE CONTIUES.
[2024-08-30] MEDS ORDERED: HydrALAZINE HCl 20 MG / ML 1ML Vial IV PRN (14:45)
[2024-08-30] MEDS ORDERED: Melatonin 3 MG Tab PO SCH (21:00)
[2024-08-31] VITALS (7 sets, daily range): BP systolic 96–115; BP diastolic 58–76
[2024-08-31 04:04] LABS: BASOPHILS ABSOLUTE AUTO 0.02 K/mm3 (0.00-0.23); BASOPHILS PERCENT AUTO 0 % (0-2); EOSINOPHILS ABSOLUTE AUTO 0.17 K/mm3 (0.00-0.68); EOSINOPHILS PERCENT AUTO 2 % (0-6); Hematocrit 27.4 % (33.0-51.0); Hemoglobin 9.3 g/dL (11.5-16.0); IMMATURE GRAN ABSOLUTE AUTO 0.04 K/mm3 (0.00-0.10); IMMATURE GRAN PERCENT AUTO 1 % (0-1); LYMPHOCYTES ABSOLUTE AUTO 3.09 K/mm3 (0.84-5.20); LYMPHOCYTES PERCENT AUTO 36 % (21-46); MONOCYTES ABSOLUTE AUTO 0.88 K/mm3 (0.16-1.47); MONOCYTES PERCENT AUTO 10 % (4-13); Mean Corpuscular HGB 35.6 pg (26.0-34.0); Mean Corpuscular HGB Conc 33.9 g/dL (31.5-36.5); Mean Corpuscular Volume 105 fL (80-100); Mean Platelet Volume 9.4 fL (9.1-12.4); NEUTROPHILS ABSOLUTE AUTO 4.47 K/mm3 (1.96-9.15); NEUTROPHILS PERCENT AUTO 52 % (41-73); Platelet Count 235 K/mm3 (150-400); RDW Coefficient Variation 12.4 % (11.7-14.2); RDW Standard Deviation 47.7 fL (35.1-46.3); Red Blood Cell Count 2.61 M/mm3 (3.80-5.20); White Blood Cell Count 8.67 K/mm3 (4.00-11.30)
[2024-08-31 04:35] LABS: Albumin/Globulin Ratio 0.8 (0.8-1.8); Bilirubin, Total 0.2 mg/dL (0.1-1.0); Bun/Creatinine Ratio 19.2 (12.0-20.0); Calcium, Blood 8.5 mg/dL (8.5-10.1); Creatinine, Blood 1.3 mg/dL (0.40-1.00); Globulin, Blood 3.6 g/dL (2.2-4.0); Potassium, Blood 3.7 mmol/L (3.5-5.5); Total Protein, Blood 6.6 g/dL (6.4-8.2)
--- NOTE | 2024-08-31 05:48 | NUR ---
SHIFT SUMMARY A/OX4, CALLS APPROPRIATLY. HAD SOME EMOTIONAL DISTRESS THIS SHIFT R/T LOSS OF CLOSE FRIEND. HR 70'S, BP STABLE, NO CHEST PAIN/PRESSURE. PAIN MANAGED PER EMAR WITH RELIEF. ON ROOM AIR, SATS >90%. NO BM THIS SHIFT. UP TO COMMODE WITH SBA. NO ACUTE EVENTS. CALL LIGHT IN REACH.
[2024-08-31] MEDS ORDERED: Levothyroxine Sodium 0.1 MG Tab PO SCH (06:00)
--- NOTE | 2024-08-31 07:00 | NUR ---
ASSUME CARE: I have assumed care of this patient. At this time she awakens easily and converses with RN.
--- NOTE | 2024-08-31 09:31 | NUR ---
TRANSFER: Report called to SALES PROMOTION COORDINATOR. Pt taken to PCU 3 from ICU 5 via wheelchair by RN.
--- NOTE | 2024-08-31 11:05 | NUR ---
Pt declined shower and bath. Said the dr told her she will be going home today. Anxiously awaiting dishcharg orders. RN notified. Call light in reach.
[2024-08-31] MEDS ORDERED: DILT180 PO (11:17)
[2024-08-31] MEDS ORDERED: AMLO10 PO (11:28)
[2024-08-31] MEDS ORDERED: HYDCHL25 PO (11:29)
[2024-08-31] MEDS ORDERED: MELA3 PO (11:30)
--- NOTE | 2024-08-31 13:49 | NUR ---
DISCHARGED INSTRUCTIONS REVIEWED AND PATIENT CONFIRMS UNDERSTANDING
== END 2024-08-31 12:20 | disposition home or self-care (01) | DRG 281 ==
LOC: ER 08:55 → MEDS 13:33 → PCU 08-27 13:22 → MEDS 08-27 13:22 → ICUE 08-28 17:32 → PCU 08-31 09:30
PROVIDERS: Emergency Medicine; Family Medicine; Nurse Practitioner Acute Care; Student in an Organized Health Care Education/Training Program; ADMIT Family Medicine
DX: I95.2 Hypotension due to drugs (principal); I47.10 Supraventricular tachycardia, unspecified; E10.10 Type 1 diabetes mellitus with ketoacidosis without coma; I21.A1 Myocardial infarction type 2; I47.21 Torsades de pointes; R00.1 Bradycardia, unspecified; I25.111 Atherosclerotic heart disease of native coronary artery with angina pectoris with documented spasm; E66.9 Obesity, unspecified; E78.00 Pure hypercholesterolemia, unspecified; T50.915A Adverse effect of multiple unspecified drugs, medicaments and biological substances, initial encounter; G89.29 Other chronic pain; E10.22 Type 1 diabetes mellitus with diabetic chronic kidney disease; I12.9 Hypertensive chronic kidney disease with stage 1 through stage 4 chronic kidney disease, or unspecified chronic kidney disease; N18.32 Chronic kidney disease, stage 3b; F44.5 Conversion disorder with seizures or convulsions; E89.0 Postprocedural hypothyroidism; F32.A Depression, unspecified; G43.909 Migraine, unspecified, not intractable, without status migrainosus; D63.1 Anemia in chronic kidney disease; R29.6 Repeated falls; F41.9 Anxiety disorder, unspecified; L89.301 Pressure ulcer of unspecified buttock, stage 1; M1A.9XX0 Chronic gout, unspecified, without tophus (tophi); R10.13 Epigastric pain; Z88.6 Allergy status to analgesic agent; Z88.0 Allergy status to penicillin; Z88.2 Allergy status to sulfonamides; Z88.1 Allergy status to other antibiotic agents; Z88.8 Allergy status to other drugs, medicaments and biological substances; Z91.041 Radiographic dye allergy status; Z88.5 Allergy status to narcotic agent; Z79.84 Long term (current) use of oral hypoglycemic drugs; Z79.51 Long term (current) use of inhaled steroids; Z79.890 Hormone replacement therapy; Z68.39 Body mass index [BMI] 39.0-39.9, adult; Z79.82 Long term (current) use of aspirin; Z79.899 Other long term (current) drug therapy; Z79.891 Long term (current) use of opiate analgesic
CPT/HCPCS: 36415; 71260; 74176; 76937; 80048; 80053; 80069; 82010; 82728; 82803; 82947; 83036; 83540; 83550; 83605; 83735; 84439; 84443; 84484; 84550; 85025; 85027; 85347; 93005; 93010; 93454; 94760; 94762; 97112; 97161; 99152; 99153; 99284-25; A9270; C1751; C1769; C1887; C1894; C8929; G0378; J0282; J0360; J0461; J0780; J1200; J1644; J1650; J1720; J1815; J2060; J2250; J2270; J2371; J2405; J2765; J3010; J3246; J3475; J3480; J7030; J7040; J7042; J7050; J7060; Q9957; Q9967

== ENCOUNTER 2024-09-06 10:01 | Inpatient (IN) | payer OTHER ==
[~2024-09-06] VITALS: Ht 162.6 cm; Wt 99.9 kg
[~2024-09-06 10:01] MED LIST changes: +ASPIR 8181 M1 PO; +CATAPRES0.3 MG PO; +Flonase 0.05% N16 GM; +HYDCHL25 PO; +IPRAT-ALBUT 0.5-3 ML; +ISOMON20 PO; +MELA3 PO; +NARCAN4 M1; +OZEMPIC2 MG/0.75 SC; +STEGLATRO15 MG PO; +Synthroid200 MCG PO; +TIAZAC PO; +ZYRTEC10 M2 PO
[2024-09-06] MEDS ORDERED: NS 250 ML IV SCH (10:25)
[2024-09-06] MEDS ORDERED: Methyl Salicylate/Menth/Camph 57 GM TUBE TOP ONE (10:30)
[2024-09-06] MEDS ORDERED: Acetaminophen 500 MG Tab PO ONE (10:30)
[2024-09-06] MEDS ORDERED: Methocarbamol 500 MG Tab PO ONE (10:30)
[2024-09-06 10:54] LABS: BASOPHILS ABSOLUTE AUTO 0.02 K/mm3 (0.00-0.23); BASOPHILS PERCENT AUTO 0 % (0-2); EOSINOPHILS ABSOLUTE AUTO 0.12 K/mm3 (0.00-0.68); EOSINOPHILS PERCENT AUTO 2 % (0-6); Hematocrit 27.1 % (33.0-51.0); Hemoglobin 8.9 g/dL (11.5-16.0); IMMATURE GRAN ABSOLUTE AUTO 0.05 K/mm3 (0.00-0.10); IMMATURE GRAN PERCENT AUTO 1 % (0-1); LYMPHOCYTES ABSOLUTE AUTO 2.41 K/mm3 (0.84-5.20); LYMPHOCYTES PERCENT AUTO 43 % (21-46); MONOCYTES ABSOLUTE AUTO 0.48 K/mm3 (0.16-1.47); MONOCYTES PERCENT AUTO 9 % (4-13); Mean Corpuscular HGB 34.9 pg (26.0-34.0); Mean Corpuscular HGB Conc 32.8 g/dL (31.5-36.5); Mean Corpuscular Volume 106 fL (80-100); Mean Platelet Volume 9.9 fL (9.1-12.4); NEUTROPHILS ABSOLUTE AUTO 2.51 K/mm3 (1.96-9.15); NEUTROPHILS PERCENT AUTO 45 % (41-73); Platelet Count 270 K/mm3 (150-400); RDW Standard Deviation 50.3 fL (35.1-46.3); Red Blood Cell Count 2.55 M/mm3 (3.80-5.20); White Blood Cell Count 5.59 K/mm3 (4.00-11.30)
[2024-09-06] MEDS ORDERED: AMITRIPTYLINE100 M6 PO (11:20)
[2024-09-06 11:21] LABS: Albumin, Blood 3.2 g/dL (3.4-5.0); Albumin/Globulin Ratio 0.9 (0.8-1.8); Bilirubin, Total 0.2 mg/dL (0.1-1.0); Bun/Creatinine Ratio 17.4 (12.0-20.0); Calcium, Blood 8.9 mg/dL (8.5-10.1); Creatinine, Blood 2.88 mg/dL (0.40-1.00); Globulin, Blood 3.5 g/dL (2.2-4.0); Magnesium, Blood 1.9 mg/dL (1.6-2.4); Potassium, Blood 3.9 mmol/L (3.5-5.5); Total Protein, Blood 6.7 g/dL (6.4-8.2)
[2024-09-06] MEDS ORDERED: EPITOL200 M2 PO (11:21)
[2024-09-06] MEDS ORDERED: GABA100 PO (11:54)
[2024-09-06] MEDS ORDERED: SITA25T2 PO (11:56)
[2024-09-06] MEDS ORDERED: CATAPRES0.1 MG PO (11:56)
[2024-09-06] MEDS ORDERED: METO10 PO (11:57)
[2024-09-06] MEDS ORDERED: METO100ER PO (11:59)
[2024-09-06] MEDS ORDERED: OxyCODONE HCL 5 MG TAB PO ONE (12:20)
[2024-09-06] MEDS ORDERED: NS 500 ML IV SCH (12:25)
[2024-09-06] MEDS ORDERED: Ipratropium/Albuterol SulF 2.5-0.5MG/3 ML Amp INH PRN (16:45)
[2024-09-06] MEDS ORDERED: OxyCODONE HCL 5 MG TAB PO PRN (16:50)
[2024-09-06] MEDS ORDERED: NS 1,000 ML IV SCH (17:00)
[2024-09-06 17:09] VITALS: BP 141/55
[2024-09-06 17:10] VITALS: BP 119/58
[2024-09-06 17:12] VITALS: BP 98/61
[2024-09-06] MEDS ORDERED: Albuterol HFA200 ACT/6.7 GM INH INH PRN (17:35)
[2024-09-06] MEDS ORDERED: Diclofenac Sodium 100 GM TUBE TOP PRN (17:40)
[2024-09-06] MEDS ORDERED: Amitriptyline HCl 50 MG Tab PO SCH (18:00)
--- NOTE | 2024-09-06 18:33 | NUR ---
ADMISSION NOTE MS MALDONADO WAS ADMITTED FROM THE ER TO MEDICAL UNIT AT ~1700HRS TODAY. SHE TRANSFERED INDEPENDENTLY TO THE BED. SHE C/O DIZZYNESS RECENTLY AND TODAY. ORTHOSTATIC VS ON ADMISSION WITH NOTABLE BLOOD PRESSURE DROP. PT EDUCATED ON GETTING UP FROM LYING AND SITTING POSITIONS SLOWLY, ON CALLING FOR ASSISTANCE BEFORE STANDING, FALL PREVENTION PRECAUTIONS FOR WHICH SHE VERBALISED GOOD UNDERSTANDING AND DEMONSTRATION. PLACED ON TELEMETRY SR 90S PER INVESTIGATOR. NEW PIV PLACED AND IVF INFUSING AT 75CC/HR. C/O CHRONIC BACK PAIN 12/11, TOLERABLE AT THIS TIME AFTER RECEIVING MEDS IN ER. SHE WAS RECENTLY DISCHARGED FROM [facility] 4 DAYS AGO AND HAS A HEALING PRESSURE SORE ON HER RIGHT BUTTOCK. SHE HAS HER OWN PRESSURE RELIEF CUSHION FROM HOME. PHOTOGRAPH PLACED IN CHART. BED LOW, CALL LIGHT IN REACH.
[2024-09-06] MEDS ORDERED: Melatonin 3 MG Tab PO SCH (21:00)
[2024-09-06] MEDS ORDERED: CloNIDine 0.1 MG Tab PO SCH ×2 (21:00)
[2024-09-06] MEDS ORDERED: Gabapentin 100 MG Cap PO SCH (21:00)
[2024-09-06] MEDS ORDERED: CarBAMazepine 200 MG Tab PO SCH (21:00)
[2024-09-06] MEDS ORDERED: Metoprolol Succinate 50 MG TABCR PO SCH (21:00)
[2024-09-06 21:33] VITALS: BP 117/63
[2024-09-07] VITALS (7 sets, daily range): BP systolic 112–144; BP diastolic 53–78
[2024-09-07 05:28] LABS: BASOPHILS ABSOLUTE AUTO 0.02 K/mm3 (0.00-0.23); BASOPHILS PERCENT AUTO 0 % (0-2); EOSINOPHILS ABSOLUTE AUTO 0.09 K/mm3 (0.00-0.68); EOSINOPHILS PERCENT AUTO 2 % (0-6); Hemoglobin 9.6 g/dL (11.5-16.0); IMMATURE GRAN ABSOLUTE AUTO 0.01 K/mm3 (0.00-0.10); IMMATURE GRAN PERCENT AUTO 0 % (0-1); LYMPHOCYTES ABSOLUTE AUTO 1.26 K/mm3 (0.84-5.20); LYMPHOCYTES PERCENT AUTO 27 % (21-46); MONOCYTES ABSOLUTE AUTO 0.46 K/mm3 (0.16-1.47); MONOCYTES PERCENT AUTO 10 % (4-13); Mean Corpuscular HGB 35.4 pg (26.0-34.0); Mean Corpuscular HGB Conc 33.1 g/dL (31.5-36.5); Mean Corpuscular Volume 107 fL (80-100); Mean Platelet Volume 9.6 fL (9.1-12.4); NEUTROPHILS ABSOLUTE AUTO 2.81 K/mm3 (1.96-9.15); NEUTROPHILS PERCENT AUTO 61 % (41-73); Platelet Count 239 K/mm3 (150-400); RDW Coefficient Variation 13.1 % (11.7-14.2); RDW Standard Deviation 50.2 fL (35.1-46.3); Red Blood Cell Count 2.71 M/mm3 (3.80-5.20); White Blood Cell Count 4.65 K/mm3 (4.00-11.30)
[2024-09-07] MEDS ORDERED: Famotidine 20 MG Tab PO SCH (06:00)
[2024-09-07] MEDS ORDERED: Levothyroxine Sodium 0.1 MG Tab PO SCH (06:00)
[2024-09-07 06:03] LABS: Albumin, Blood 3.3 g/dL (3.4-5.0); Anion Gap 11 mmol/L (3-11); Blood Urea Nitrogen 38 mg/dL (8-24); Bun/Creatinine Ratio 17.4 (12.0-20.0); CO2, Blood 23 mmol/L (21-32); Calcium, Blood 9.2 mg/dL (8.5-10.1); Chloride, Blood 109 mmol/L (98-108); Creatinine, Blood 2.18 mg/dL (0.40-1.00); Glomerular Filtration Rate 25 (60-); Glucose, Blood 118 mg/dL (70-99); Phosphorus, Blood 4.3 mg/dL (2.5-4.9); Potassium, Blood 4.3 mmol/L (3.5-5.5); Sodium, Blood 139 mmol/L (136-145)
--- NOTE | 2024-09-07 06:34 | NUR ---
SUMMARY: PT A/OX4, CALLS APPROPRIATELY TO SPECIFY NEEDS AND IS PLEASANT AND COOPERATIVE W/CARE. SHE'S UP W/SBA D/T +ORTHOSTATIC HYPOTENSION AND PREVIOUS REPORTS OF DIZZINESS, NONE NOTED THIS SHIFT. PT AMBULATES TO RESTROOM AND WEARS PULLUP FOR OCC.URINARY URGENCY. CHRONIC BACK PAIN PERSISTS W/PRN OXYCODONE RECEIVED PER EMAR. NS INFUSES AT 75 ML/HR X1L AND WILL BE SL'D AFTER THIS INFUSION. SCATTERED ECCHYMOSIS OBSERVED W/MORE PROMINENT BRUISE OBSERVED TO R.WRIST FROM PRIOR CATH SITE. SHE HAS A HEALING PRESSURE SORE TO R.BUTTOCKS AND UTILIZES FOAM PAD FROM HOME FOR PREVENTION OF WORSENING SBD. NO ACUTE CHANGES, VSS/AFEBRILE. SHE'S NSR W/1ST DEGREE BLOCK ON TELE AND HS CLONIDINE WA HELD FOR SBP<120 PER RX'D PARAMETERS. WILL REPORT TO DAY RN.
[2024-09-07] MEDS ORDERED: Insulin Human Lispro 100 Units/ML 3ML Syringe SC SCH (07:30)
[2024-09-07] MEDS ORDERED: Diltiazem HCl 180 MG Cap.CD PO SCH (09:00)
[2024-09-07] MEDS ORDERED: Metoprolol Succinate 50 MG TABCR PO SCH (09:00)
[2024-09-07] MEDS ORDERED: Lidocaine 4% 1 Patch TOP SCH (09:00)
[2024-09-07] MEDS ORDERED: Aspirin 81 MG TabEC PO SCH (09:00)
[2024-09-07] MEDS ORDERED: Heparin Sodium,Porcine 5,000 UNIT/0.5 ML SDV SC SCH (09:00)
[2024-09-07] MEDS ORDERED: Isosorbide Mononitrate 60 MG TABCR PO SCH (09:00)
[2024-09-07] MEDS ORDERED: Atorvastatin 40 MG Tab PO SCH (09:00)
[2024-09-07] MEDS ORDERED: NS 1,000 ML IV SCH (12:05)
--- NOTE | 2024-09-07 17:02 | NUR ---
SHIFT SUMMARY: PATIENT IS ALERT AND ORIENTEDX4/SBA/INDEPENDENT TO THE BATHROOM. SHE HAS BEEN ASYMPTOMATIC THIS SHIFT. GETTING NS AT 50ML/HR. STRICT I&O'S OF THIS AFTERNOON. PLAN IS FOR THE PATIENT TO DISCHARGE TOMORROW 09/08/24. SHE IS IN BED, ALERT, CALL LIGHT WITHIN REACH, NO SIGNS OR SYMPTOMS OF DISTRESS, PLAN OF CARE ONGOING.
[2024-09-07] MEDS ORDERED: OxyCODONE HCL 5 MG TAB PO PRN (18:15)
[2024-09-08 05:24] LABS: BASOPHILS ABSOLUTE AUTO 0.02 K/mm3 (0.00-0.23); BASOPHILS PERCENT AUTO 0 % (0-2); EOSINOPHILS ABSOLUTE AUTO 0.09 K/mm3 (0.00-0.68); EOSINOPHILS PERCENT AUTO 2 % (0-6); Hematocrit 30.2 % (33.0-51.0); Hemoglobin 9.6 g/dL (11.5-16.0); IMMATURE GRAN ABSOLUTE AUTO 0.01 K/mm3 (0.00-0.10); IMMATURE GRAN PERCENT AUTO 0 % (0-1); LYMPHOCYTES ABSOLUTE AUTO 1.65 K/mm3 (0.84-5.20); LYMPHOCYTES PERCENT AUTO 36 % (21-46); MONOCYTES ABSOLUTE AUTO 0.53 K/mm3 (0.16-1.47); MONOCYTES PERCENT AUTO 12 % (4-13); Mean Corpuscular HGB 34.2 pg (26.0-34.0); Mean Corpuscular HGB Conc 31.8 g/dL (31.5-36.5); Mean Corpuscular Volume 108 fL (80-100); Mean Platelet Volume 9.9 fL (9.1-12.4); NEUTROPHILS ABSOLUTE AUTO 2.28 K/mm3 (1.96-9.15); NEUTROPHILS PERCENT AUTO 50 % (41-73); Platelet Count 255 K/mm3 (150-400); RDW Coefficient Variation 12.8 % (11.7-14.2); RDW Standard Deviation 50.5 fL (35.1-46.3); Red Blood Cell Count 2.81 M/mm3 (3.80-5.20); White Blood Cell Count 4.58 K/mm3 (4.00-11.30)
--- NOTE | 2024-09-08 05:32 | NUR ---
SUMMARY: PT A/OX4, CALLS APPROPRIATELY TO SPECIFY NEEDS AND IS PLEASANT AND COOPERATIVE W/CARE. SHE'S UP W/SBA FOR +ORTHOSTATIC HYPOTENSION THOUGH THIS SEEMS TO BE IMPROVING. PT AWARE OF LIMITATIONS AND KNOWS TO DANGLE PRIOR TO AMBULATING. NS INFUSES AT 50 ML/HR W/STRICT I&O'S MONITORED. CATAPRES HELD FOR SBP <120 PER PARAMETERS. SHE'S NSR AT 60'S-70'S BPM ON TELE. SORE TO BUTTOCKS REMAINS ARVIND W/BARRIER CREAM APPLIED PRN AND PT UTILIZES FOAM PAD FROM HOME FOR PRESSURE REDUCTION. PRN OXICODONE RECEIVED FOR TOLERABLE RELIEF OF CHRONIC BACK PAIN BUT PT REPORTED GOUT PAIN THIS AM D/T ALLOPURINOL NOT CURRENTLY RX'D. WILL ALERT MD BUT PLAN IS FOR D/C TODAY. NO ACUTE CHANGES, VSS/AFEBRILE. WILL REPORT TO DAY RN.
[2024-09-08 05:37] VITALS: BP 130/69
[2024-09-08 05:47] LABS: Albumin, Blood 3.3 g/dL (3.4-5.0); Albumin/Globulin Ratio 0.9 (0.8-1.8); Bilirubin, Total 0.4 mg/dL (0.1-1.0); Bun/Creatinine Ratio 16.5 (12.0-20.0); Calcium, Blood 9.2 mg/dL (8.5-10.1); Creatinine, Blood 1.82 mg/dL (0.40-1.00); Globulin, Blood 3.7 g/dL (2.2-4.0); Potassium, Blood 4.1 mmol/L (3.5-5.5)
[2024-09-08] MEDS ORDERED: Famotidine 20 MG Tab PO SCH (06:00)
[2024-09-08] MEDS ORDERED: Alogliptin Benzoate 6.25 MG TABLET PO SCH (09:00)
[2024-09-08] MEDS ORDERED: Empagliflozin 10 MG TAB PO SCH (09:00)
[2024-09-08] MEDS ORDERED: Metoprolol Succinate 50 MG TABCR PO SCH (09:00)
[2024-09-08] MEDS ORDERED: Allopurinol 100 MG Tab PO SCH (09:00)
[2024-09-08 09:13] VITALS: BP 132/73
[2024-09-08] MEDS ORDERED: JARDIANCE10 MG PO (11:50)
[2024-09-08 12:33] VITALS: BP 137/82
--- NOTE | 2024-09-08 14:14 | NUR ---
1400 DISCHARGE REVIEWED BY KAMLA HARRELL. PT VERBALIZED UNDRSTANDING MEDS AND INSTRUCT. IV PULLED BY SHARRI CASON. TELE REMOVED AND RETURNED. PT WHEELED TO DOOR AT 1400 BY DUANE.
== END 2024-09-08 15:00 | disposition home or self-care (01) | DRG 683 ==
LOC: ER 10:01 → ERHOLD 15:36 → MEDS 15:36
PROVIDERS: Student in an Organized Health Care Education/Training Program; ADMIT Student in an Organized Health Care Education/Training Program
DX: N17.9 Acute kidney failure, unspecified (principal); I13.0 Hypertensive heart and chronic kidney disease with heart failure and stage 1 through stage 4 chronic kidney disease, or unspecified chronic kidney disease; I50.22 Chronic systolic (congestive) heart failure; I95.1 Orthostatic hypotension; I25.10 Atherosclerotic heart disease of native coronary artery without angina pectoris; R79.89 Other specified abnormal findings of blood chemistry; M10.9 Gout, unspecified; R29.6 Repeated falls; R56.9 Unspecified convulsions; E86.0 Dehydration; T50.915A Adverse effect of multiple unspecified drugs, medicaments and biological substances, initial encounter; R00.1 Bradycardia, unspecified; N18.32 Chronic kidney disease, stage 3b; G89.29 Other chronic pain; M54.2 Cervicalgia; G43.909 Migraine, unspecified, not intractable, without status migrainosus; E89.0 Postprocedural hypothyroidism; T46.1X5A Adverse effect of calcium-channel blockers, initial encounter; R23.3 Spontaneous ecchymoses; T46.4X5A Adverse effect of angiotensin-converting-enzyme inhibitors, initial encounter; T50.2X5A Adverse effect of carbonic-anhydrase inhibitors, benzothiadiazides and other diuretics, initial encounter; D63.1 Anemia in chronic kidney disease; E10.22 Type 1 diabetes mellitus with diabetic chronic kidney disease; Z88.8 Allergy status to other drugs, medicaments and biological substances; Z73.3 Stress, not elsewhere classified; Z63.8 Other specified problems related to primary support group; Z88.1 Allergy status to other antibiotic agents; Z88.2 Allergy status to sulfonamides; Z88.6 Allergy status to analgesic agent; Z88.5 Allergy status to narcotic agent; Z88.0 Allergy status to penicillin; Z91.041 Radiographic dye allergy status; Z79.84 Long term (current) use of oral hypoglycemic drugs; Z79.82 Long term (current) use of aspirin; Z79.899 Other long term (current) drug therapy; Z79.890 Hormone replacement therapy; Z79.891 Long term (current) use of opiate analgesic; Z86.16 Personal history of COVID-19
CPT/HCPCS: 36415; 71046; 76770; 80053; 80069; 82947; 83735; 83880; 84484; 85025; 93005; 93010; 93931; 94760; 96360; 96361; 99285-25; A9270; G0378; J1644; J7030

== ENCOUNTER 2024-12-22 08:03 | Day surgery (SDC) | payer OTHER ==
[~2024-12-22] VITALS: Ht 165.1 cm; Wt 95.0 kg
[~2024-12-22 08:03] MED LIST changes: +AMITRIPTYLINE100 M6 PO; +GABA100 PO; +JARDIANCE10 MG PO; +NS 500 ML IV ONE
[2024-12-22] MEDS ORDERED: CeFAZolin Sodium 2,000 MG VIAL IV ONE (08:40)
[2024-12-22] MEDS ORDERED: OZEMPIC0.25 MG/02 SQ (08:42)
[2024-12-22] MEDS ORDERED: STEGLATRO15 MG (08:43)
[2024-12-22] MEDS ORDERED: TERA5 (08:43)
[2024-12-22] MEDS ORDERED: [UNRECOGNIZED DRUG - CODE] PO (08:43)
[2024-12-22] MEDS ORDERED: Oxybutynin Chlo15 MG (08:44)
[2024-12-22] MEDS ORDERED: LORATADINE 10MG (08:44)
[2024-12-22] MEDS ORDERED: ZANAFLEX413 (08:44)
[2024-12-22] MEDS ORDERED: PIOGLITAZONE HC45 MG (08:44)
[2024-12-22] MEDS ORDERED: NS 500 ML IV ONE (08:53)
--- NOTE | 2024-12-22 09:01 | NUR ---
12/22/24 0901 [facility] 0835: PRE-OP INJECTION BY DR BASHIR OF 7 CC OF MIX OF 9 CC LIDOCAINE 1% WITH EPI 1:100,000 WITH 1 CC SODIUM BICARB. PT TOLERATED WELL. TIMEOUT WAS DONE PRIOR TO INJECTION. 0836: DISCUSSED ALLERGIES WITH DR BASHIR, ALLERGY TO CEPHALOSPORIN AND COMPUTER STATES ANAPHYLAXIS BUT PATIENT REPORTS NO PROBLEMS SINCE SHE WAS A CHILD. PER DR BASHIR OK TO PROCEED WITH ANCEF. DISCUSSED WITH KAMLA MATOS THAT PATIENT HAS ALLERGY TO IODINE SO RN SAID THEY WILL USE A DIFFERENT PREP.
[2024-12-22 09:28] VITALS: BP 164/88
== END 2024-12-22 09:42 | disposition home or self-care (01) ==
LOC: ORSCSDS 08:03
PROVIDERS: Orthopaedic Surgery
PROC: 0JBG0ZX Excision of Right Lower Arm Subcutaneous Tissue and Fascia, Open Approach, Diagnostic (ICD-10-PCS; principal; 2024-12-22 10:00)
PROC: 01N54ZZ Release Median Nerve, Percutaneous Endoscopic Approach (ICD-10-PCS; principal; 2024-12-22 10:00)
DX: G56.01 Carpal tunnel syndrome, right upper limb (principal); E11.22 Type 2 diabetes mellitus with diabetic chronic kidney disease; I12.9 Hypertensive chronic kidney disease with stage 1 through stage 4 chronic kidney disease, or unspecified chronic kidney disease; N18.9 Chronic kidney disease, unspecified; I50.9 Heart failure, unspecified; K21.9 Gastro-esophageal reflux disease without esophagitis; Z86.16 Personal history of COVID-19; Z79.899 Other long term (current) drug therapy; Z79.85 Long-term (current) use of injectable non-insulin antidiabetic drugs; Z79.84 Long term (current) use of oral hypoglycemic drugs; E66.9 Obesity, unspecified; Z68.39 Body mass index [BMI] 39.0-39.9, adult
CPT/HCPCS: 82947; 88304; 88313; J0690; J2704; J7040

== ENCOUNTER 2025-01-05 16:08 | Emergency (ER) | payer OTHER ==
[~2025-01-05] VITALS: Ht 162.6 cm; Wt 90.7 kg
[~2025-01-05 16:08] MED LIST changes: +LORATADINE 10MG; -NS 500 ML IV ONE; +OZEMPIC0.25 MG/02 SQ; +Oxybutynin Chlo15 MG; +PIOGLITAZONE HC45 MG; +STEGLATRO15 MG; +TERA5; +ZANAFLEX413
[2025-01-05 16:42] LABS: BASOPHILS ABSOLUTE AUTO 0.02 K/mm3 (0.00-0.23); BASOPHILS PERCENT AUTO 0 % (0-2); EOSINOPHILS ABSOLUTE AUTO 0.14 K/mm3 (0.00-0.68); EOSINOPHILS PERCENT AUTO 2 % (0-6); Hematocrit 27.0 % (33.0-51.0); Hemoglobin 9.0 g/dL (11.5-16.0); IMMATURE GRAN ABSOLUTE AUTO 0.03 K/mm3 (0.00-0.10); IMMATURE GRAN PERCENT AUTO 0 % (0-1); LYMPHOCYTES ABSOLUTE AUTO 2.36 K/mm3 (0.84-5.20); LYMPHOCYTES PERCENT AUTO 32 % (21-46); MONOCYTES ABSOLUTE AUTO 0.50 K/mm3 (0.16-1.47); MONOCYTES PERCENT AUTO 7 % (4-13); Mean Corpuscular HGB Conc 33.3 g/dL (31.5-36.5); Mean Corpuscular Volume 102 fL (80-100); NEUTROPHILS ABSOLUTE AUTO 4.32 K/mm3 (1.96-9.15); NEUTROPHILS PERCENT AUTO 59 % (41-73); NRBC ABSOLUTE 0.00 K/mm3 (0.00-0.02); NRBC Auto 0.0 /100 WBC (0.0-0.2); Platelet Count 233 K/mm3 (150-400); RDW Coefficient Variation 13.5 % (11.7-14.2); RDW Standard Deviation 50.8 fL (35.1-46.3)
[2025-01-05 17:52] LABS: Alanine Aminotransfer (ALT/SGP 32.0 U/L (12-78); Albumin, Blood 3.4 g/dL (3.4-5.0); Albumin/Globulin Ratio 0.8 (0.8-1.8); Anion Gap 8.0 mmol/L (3-11); Aspartate Aminotrans (AST/SGOT 20.0 U/L (12-37); Bilirubin, Total 0.2 mg/dL (0.1-1.0); Blood Urea Nitrogen 34.0 mg/dL (8-24); CO2, Blood 27.0 mmol/L (21-32); Calcium, Blood 9.4 mg/dL (8.5-10.1); Chloride, Blood 100.0 mmol/L (98-108); Creatinine, Blood 1.93 mg/dL (0.40-1.00); Globulin, Blood 4.0 g/dL (2.2-4.0); Glucose, Blood 117.0 mg/dL (70-99); Potassium, Blood 4.6 mmol/L (3.5-5.5); Sodium, Blood 130.0 mmol/L (136-145); Total Protein, Blood 7.4 g/dL (6.4-8.2)
[2025-01-05 20:45] VITALS: BP 138/76
== END 2025-01-05 21:05 | disposition home or self-care (01) ==
LOC: ER 16:08
PROVIDERS: Student in an Organized Health Care Education/Training Program
DX: I95.9 Hypotension, unspecified (principal); D64.9 Anemia, unspecified; Z79.84 Long term (current) use of oral hypoglycemic drugs; Z79.85 Long-term (current) use of injectable non-insulin antidiabetic drugs; Z79.82 Long term (current) use of aspirin; Z79.890 Hormone replacement therapy; Z79.899 Other long term (current) drug therapy
CPT/HCPCS: 71046; 80053; 84484; 85025; 93005; 93010; 96360; 99285-25; J7120

== ENCOUNTER 2025-01-26 09:03 | Day surgery (SDC) | payer OTHER ==
[~2025-01-26] VITALS: Ht 165.1 cm; Wt 93.6 kg
[~2025-01-26 09:03] MED LIST changes: +NS 500 ML IV ONE
[2025-01-26] MEDS ORDERED: CeFAZolin Sodium 2,000 MG VIAL ONE (09:52)
[2025-01-26] MEDS ORDERED: NS 500 ML IV ONE (09:56)
[2025-01-26 11:39] VITALS: BP 97/63
--- NOTE | 2025-01-26 11:39 | NUR ---
01/26/25 1139 [employer] PT DENIED PAIN, DIZZINESS, NAUSEA, SOB, AND OTHER SYMPTOMS AT TIME OF D/C. SHE WAS INSTRUCTED TO MONITOR B/P AND FOLLOW UP NEEDED.
== END 2025-01-26 11:15 | disposition home or self-care (01) ==
LOC: ORSCSDS 09:03
PROVIDERS: Orthopaedic Surgery
PROC: 01N54ZZ Release Median Nerve, Percutaneous Endoscopic Approach (ICD-10-PCS; principal; 2025-01-26 10:45)
DX: G56.02 Carpal tunnel syndrome, left upper limb (principal); I10 Essential (primary) hypertension; G47.33 Obstructive sleep apnea (adult) (pediatric); R06.02 Shortness of breath; E11.9 Type 2 diabetes mellitus without complications; Z79.899 Other long term (current) drug therapy
CPT/HCPCS: 82947; J0690; J2250; J2704; J7040

== ENCOUNTER 2025-03-02 01:15 | Day surgery (SDC) | payer OTHER ==
[~2025-03-02 01:15] MED LIST changes: -NS 500 ML IV ONE; +Sod Ferric Gluc Complx/Sucrose 125 MG in NS 100 ML IV SCH
[2025-03-02 13:56] VITALS: BP 141/93
== END 2025-03-02 15:10 | disposition home or self-care (01) ==
LOC: ATC 01:15
DX: D50.8 Other iron deficiency anemias (principal); I50.9 Heart failure, unspecified; E11.42 Type 2 diabetes mellitus with diabetic polyneuropathy; Z79.899 Other long term (current) drug therapy; Z79.4 Long term (current) use of insulin; Z88.1 Allergy status to other antibiotic agents; Z88.8 Allergy status to other drugs, medicaments and biological substances; Z88.2 Allergy status to sulfonamides; Z91.030 Bee allergy status; Z91.041 Radiographic dye allergy status
CPT/HCPCS: 96365; J2916

== ENCOUNTER 2025-03-06 08:25 | Day surgery (SDC) | payer OTHER ==
[2025-03-06 16:13] VITALS: BP 153/96
== END 2025-03-06 17:19 | disposition home or self-care (01) ==
LOC: ATC 08:25
DX: D50.8 Other iron deficiency anemias (principal); I50.9 Heart failure, unspecified; E11.42 Type 2 diabetes mellitus with diabetic polyneuropathy; E83.42 Hypomagnesemia; Z79.82 Long term (current) use of aspirin; Z79.85 Long-term (current) use of injectable non-insulin antidiabetic drugs; Z79.890 Hormone replacement therapy; Z79.899 Other long term (current) drug therapy; Z88.0 Allergy status to penicillin; Z88.1 Allergy status to other antibiotic agents; Z88.2 Allergy status to sulfonamides; Z88.5 Allergy status to narcotic agent; Z88.8 Allergy status to other drugs, medicaments and biological substances; Z91.030 Bee allergy status; Z91.041 Radiographic dye allergy status
CPT/HCPCS: 96365; J2916